=== PATIENT | female | born 1975 | race Caucasian/White ===

== ENCOUNTER 2024-12-10 14:21 | Emergency (ER) | payer MEDICAID, SELFPAY ==
[2024-12-10] VITALS (9 sets, daily range): BP systolic 134–170; BP diastolic 81–103; PULSE 59–74; RESP 16–19; TEMP 36.4–37; O2SAT 93–98; BMI 54.8
--- NOTE | 2024-12-10 14:32 | CT_ITS ---
PROCEDURE INFORMATION: Exam: CT Abdomen And Pelvis With Contrast Exam date and time: 12/10/2024 5:03 PM Age: 49 years old Clinical indication: Abdominal pain; Additional info: Diffuse abdominal pain TECHNIQUE: Imaging protocol: Computed tomography of the abdomen and pelvis with contrast. Radiation optimization: All CT scans at this facility use at least one of these dose optimization techniques: automated exposure control; mA and/or kV adjustment per patient size (includes targeted exams where dose is matched to clinical indication); or iterative reconstruction. Contrast material: ISOVUE; Contrast volume: 75 ml; Contrast route: IV; COMPARISON: CT ABDOMEN PELVIS W CON 12/10/2024 5:03 PM FINDINGS: Lungs: Mild basilar atelectasis. No basilar infiltrate or pleural effusion appreciated. Coronary arteries: Mild right-sided coronary artery calcification. No heart enlargement or pericardial fluid. Liver: Probable mild fatty infiltration of the liver. Hepatomegaly with the liver measuring 20 cm in length. No focal abnormality of the liver or intrahepatic ductal dilatation appreciated. Gallbladder and biliary ducts: The gallbladder is not visualized and presumed absent. No dilatation of the common duct appreciated. Pancreas: Mild decreased attenuation within the pancreatic head and uncinate process. Mild edema adjacent to the posterior body of the pancreas and pancreatic head region. No focal fluid collection appreciated. Spleen: Splenomegaly with the spleen measuring 17.6 cm in length. Calcified granulomata within the lower pole of the spleen. Adrenal glands: Normal. No mass. Kidneys and ureters: Normal. No hydronephrosis. Stomach and bowel: No distension of the stomach identified. No large or small bowel dilatation appreciated. No definite bowel wall abnormality appreciated. Appendix: The appendix is not visualized with certainty. No definite evidence of acute inflammation adjacent to the cecum. Intraperitoneal space: There is a 1.3 cm rim of fluid along the lateral aspect of the liver in the right upper quadrant. There is a mild degree of mesenteric inflammation centrally below the transverse segment of the duodenum with a few small lymph nodes present. There is a small amount of free fluid within the right pelvis. Vasculature: Mild atherosclerotic plaquing abdominal aorta with no aneurysm appreciated. Vena cava filter with the superior tip at the level of the right renal vein. The prongs extend through the wall of the inferior vena cava inferiorly. Lymph nodes: There are small lymph nodes in the gastrohepatic ligament. Urinary bladder: Unremarkable as visualized. Reproductive: Normal-sized anteverted uterus. Normal-appearing ovaries. Dominant 2 cm follicle left ovary. Bones/joints: Advanced degenerative disc disease L2-L3 with sclerotic vertebral body endplate changes. Soft tissues: Small linear approximate 3 x 1.5 cm area of increased attenuation within the anterolateral lower right abdominal wall which could be the site of an injection or possibly scar. IMPRESSION: 1. The above findings are most consistent with mild pancreatitis and possibly associated duodenitis. No focal fluid collection or dilatation of the pancreatic duct appreciated. 2. Previous cholecystectomy. No dilatation of the common duct. 3. Hepatosplenomegaly with probable mild fatty infiltration of the liver. 4. Small amount of fluid along the lateral right lobe of the liver and within the pelvis. 5. Other findings above. COMMENTS: For patients with an IVC filter, recommend assessment for a management plan for the patient's IVC filter. If there is no established management plan, recommend referral to an interventional clinician on a nonemergent basis for evaluation.
--- NOTE | 2024-12-10 14:32 | XR_ITS ---
PROCEDURE INFORMATION: Exam: XR Chest Exam date and time: 12/10/2024 5:04 PM Age: 49 years old Clinical indication: Shortness of breath; Additional info: Short of breath TECHNIQUE: Imaging protocol: Radiologic exam of the chest. Views: 1 view. COMPARISON: CT ABDOMEN PELVIS W CON 12/10/2024 5:03 PM FINDINGS: Lungs: No focal infiltrate or vascular congestion appreciated. Pleural spaces: Unremarkable. No pleural effusion. No pneumothorax. Heart/Mediastinum: Normal-sized cardiac silhouette. Bones/joints: Unremarkable. Soft tissues: Breast and soft tissue shadows partially obscure the lung bases. IMPRESSION: No acute findings.
--- NOTE | 2024-12-10 14:41 | HMH.EDGENADL ---
Discharge Plan Disposition Patient Disposition: Home, Self-Care Prescriptions Prescriptions: New ondansetron HCl 4 mg tablet 4 mg PO Q8H PRN (Reason: nausea and vomiting) 5 Days Qty: 20 0RF No Action furosemide [Lasix] 20 mg tablet 20 mg PO BID PRN (Reason: edema) Qty: 60 4RF alprazolam 0.5 mg tablet 0.25 mg PO BID PRN (Reason: anxiety) Qty: 14 0RF Ozempic 0.25 mg or 0.5 mg (2 mg/3 mL) pen injector 0.25 mg SQ WEEKLY Qty: 3 0RF Rx Instructions: for 4 weeks potassium chloride 10 mEq capsule, extended release 10 meq PO BID clonidine HCl 0.1 mg tablet 0.1 mg PO TID cetirizine 10 mg tablet 10 mg PO DAILY meloxicam 15 mg tablet 15 mg PO DAILY venlafaxine 150 mg capsule,extended release 24hr 150 mg PO DAILY omeprazole 40 mg capsule,delayed release(DR/EC) 40 mg PO DAILY acetaminophen 650 mg tablet extended release 650 mg PO Q4H PRN zinc sulfate 50 mg zinc (220 mg) tablet 50 mg PO DAILY ascorbic acid (vitamin C) [Vitamin C] 500 mg tablet 500 mg PO BID doxepin 100 mg capsule 100 mg PO HS selenium sulfide 1 % shampoo 1 applic topical 2XW Rx Instructions: massage into affected area; leave on for 10 mins ; rinse off thoroughly insulin lispro 100 unit/mL insulin pen 1 sliding scale dose SQ QID lactulose 10 gram/15 mL solution 30 g PO DAILY insulin glargine [Lantus Solostar U-100 Insulin] 100 unit/mL (3 mL) insulin pen 20 unit SQ DAILY Certavite-Antioxidant 18-400 mg-mcg tablet 1 tab PO DAILY sofosbuvir-velpatasvir 400-100 mg tablet 1 tab PO DAILY gabapentin 800 mg tablet 800 mg PO TID Qty: 90 0RF (DME) Blood Glucose Test Strip See Rx Instructions .ROUTE .MEDSUPPLY Qty: 50 7RF Rx Instructions: As directed (DME) 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 meter [Blood Glucose Monitoring] Kit See Rx Instructions .ROUTE .MEDSUPPLY Qty: 1 0RF Rx Instructions: As directed (DME) Dexcom G7 Sensor Device See Rx Instructions .Route Qty: 3 6RF Rx Instructions: As directed (DME) Dexcom G7 [employer]ist Misc See Rx Instructions .Route Qty: 1 0RF Rx Instructions: As directed (DME) lancets Misc See Rx Instructions .ROUTE .MEDSUPPLY Qty: 200 0RF Rx Instructions: To be used 3 times daily as directed (DME) pen needle, diabetic [Comfort EZ Pen Farrell] 31 gauge x 1/4 needle See Rx Instructions .Route Qty: 100 7RF Rx Instructions: As directed Referrals Follow up/Referrals: Magen Eqsuivel II, MD [Staff Physician, Gastroenterology] - See instructions Ren Clayton DO [Staff Physician, Family Practice] - See instructions Provider,Jr, [Primary Care Provider, Medical] - See instructions Activity Restrictions/Add. Instructions Additional Instructions/Restrictions: Increase fluids and rest. Take nausea meds as directed. If any worsening symptoms please return to the ED. Clinical Impressions Clinical Impression: Pancreatitis Instructions Patient Instructions: Acute Pancreatitis Print Language Print Language: Palauan Discharge ED Provider: James Benson General Adult HPI General Chief complaint: Nausea/Vomiting/Diarrhea Stated complaint: N/V/D Time Seen by Provider: 12/10/24 14:28 Mode of Arrival: EMS Source of Information: Patient Description of Symptoms (Recalled from ER Triage Doc. by RN): Patient states she has had nausea, vomiting, diarrhea x 5 days, states she saw her PCP 2 days ago and was told to come to the ER if she did not improve. History of Present Illness HPI narrative: 49-year-old female presents via EMS for nausea, vomiting and diarrhea for 5 days. She saw her PCP a couple days ago and was told if she did not improve come to the ER. She has been dry heaving. She has not been able to tolerate p.o. for days. She is having hot flashes but no fevers or chills. She is having diffuse abdominal pain. Her blood sugar has been 250-350. She is a diabetic and her sugar this morning was 150. Related Data Home Medications ?Medication ?Instructions ?Recorded ?Confirmed acetaminophen 650 mg 650 mg PO Q4H PRN 11/18/24 12/07/24 tablet,extended release ascorbic acid (vitamin C) 500 mg 500 mg PO BID 11/18/24 12/07/24 tablet (Vitamin C) cetirizine 10 mg tablet 10 mg PO DAILY 11/18/24 12/07/24 clonidine HCl 0.1 mg tablet 0.1 mg PO TID 11/18/24 12/07/24 doxepin 100 mg capsule 100 mg PO HS 11/18/24 12/07/24 insulin glargine 100 unit/mL (3 20 unit SQ DAILY 11/18/24 12/07/24 mL) subcutaneous pen (Lantus Solostar U-100 Insulin) insulin lispro 100 unit/mL 1 sliding scale dose SQ QID 11/18/24 12/07/24 subcutaneous pen lactulose 10 gram/15 mL oral 30 g PO DAILY 11/18/24 11/18/24 solution meloxicam 15 mg tablet 15 mg PO DAILY 11/18/24 12/07/24 multivitamin-ferrous 1 tab PO DAILY 11/18/24 12/07/24 fumarate-folic acid 18 mg-400 mcg tablet (Certavite-Antioxidant) omeprazole 40 mg capsule,delayed 40 mg PO DAILY 11/18/24 11/18/24 release potassium chloride 10 mEq 10 meq PO BID 11/18/24 12/07/24 capsule,extended release selenium sulfide 1 % shampoo 1 applic topical 2XW 11/18/24 12/07/24 sofosbuvir 400 mg-velpatasvir 100 1 tab PO DAILY 11/18/24 12/07/24 mg tablet venlafaxine 150 mg 150 mg PO DAILY 11/18/24 12/07/24 capsule,extended release 24 hr zinc sulfate 50 mg zinc (220 mg) 50 mg PO DAILY 11/18/24 12/07/24 tablet Previous Rx's ?Medication ?Instructions ?Recorded alprazolam 0.5 mg tablet 0.25 mg (1/2 x 0.5 mg) PO BID PRN 11/18/24 anxiety #14 tabs furosemide 20 mg tablet (Lasix) 20 mg PO BID PRN edema #60 tabs 11/18/24 semaglutide 0.25 mg or 0.5 mg (2 0.25 mg (0.368 mL) SQ WEEKLY #3 mL 11/18/24 mg/3 mL) subcutaneous pen injector (Ozempic) blood sugar diagnostic (Blood #50 ea 12/07/24 Glucose Test strips) 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 meter (Blood Glucose #1 ea 12/07/24 Monitoring kit) 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 sensor (Dexcom G7 #3 ea 12/07/24 Sensor device) 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,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,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 #1 ea 12/07/24 (Dexcom G7 [employer]ist) lancets #200 ea 12/07/24 pen needle, diabetic 31 gauge x #100 ea 12/07/2403/27 (Comfort EZ Pen Farrell) gabapentin 800 mg tablet 800 mg PO TID #90 tabs 12/10/24 ondansetron HCl 4 mg tablet 4 mg PO Q8H PRN nausea and 12/10/24 vomiting 5 days #20 tabs Allergies Allergy/AdvReac Type Severity Reaction Status Date / Time No Known Allergies Allergy Verified 12/07/24 13:18 [facility] Disclaimer: The information contained in this section may have been updated after the patient was seen, as this information can be updated by other users. Medical History Umbilical hernia Adjustment disorder with mixed anxiety and depressed mood Atelectasis Bipolar disorder, unspecified Calculus of gallbladder with acute cholecystitis without obstruction Dependence on wheelchair Edema, unspecified Fatty (change of) liver, not elsewhere classified Gastro-esophageal reflux disease without esophagitis Acute low back pain due to spinal disorder Morbid (severe) obesity due to excess calories Other stimulant dependence, uncomplicated Generalized polyneuropathy Chronic kidney disease due to diabetes mellitus Unspecified open wound, left ankle, subsequent encounter Presence of IVC filter Hypertension DDD (degenerative disc disease), thoracic DDD (degenerative disc disease), lumbar DDD (degenerative disc disease), cervical Surgical History H/O hernia repair H/O toe surgery History of colonoscopy Jay teeth extracted Hx of cholecystectomy History of ankle surgery History of back surgery Social History Smoking Status: Former smoker tobacco type: cigarettes packs per day: 2 and e-cigarettes smoking status start date: 1990 how long ago did patient quit smokin alcohol intake: never substance use type: former substance user and methamphetamine current occupational status: disabled Travel in the last 8 weeks?: None Have you lived/traveled outside [place] in past 30 days?: No Contact w/someone who lives/traveled outside US past 30 days?: No Exposure to someone with infectious disease in past 14 days?: No Do you have a fever (greater than 100.4 F or 38 C)?: No Have you tested positive for COVID-19?: No Exposed to someone with COVID-19 in past 14 days?: No Do you have a sore throat?: No Do you have a cough?: No Do you have any weakness?: No Do you have any diarrhea?: Yes Are you experiencing any unusual bleeding?: No Do you have any muscle aches/pain?: No Do you have any abdominal pain?: No Are you experiencing loss of taste or smell?: No Other Medical History Have you received the Pneumonia Vaccine: Yes ([id number]) ROS Obtained: Yes Systems reviewed as appropriate & no additional complaints except as documented Constitutional Constitutional: Reports as per HPI Physical Exam General General appearance: alert and in distress (Nausea) Head Head exam: normocephalic Eye Eye exam: Present PERRL and EOMI ENT ENT exam: Present normal oropharynx and mucous membranes moist Neck Neck exam: Present full ROM and trachea midline Respiratory Respiratory exam: Present normal lung sounds bilaterally Cardiovascular Cardiovascular exam: Present normal rhythm, normal heart sounds, +S1 and +S2 Abdominal Exam Abdominal exam: Present soft and normal bowel sounds Abdominal tenderness: Present diffuse Extremities Exam Extremities exam: Present full ROM and normal capillary refill Neurological Exam Neurological exam: Present alert and oriented X3 Skin Skin exam: Present warm, dry and intact Medical Decision Making Medical Records Screening: Per USPSTF and CDC recommendations, given the prevalence of disease in our region, it is our hospital?s policy to screen for HIV and viral Hepatitis for all patients aged 18 and over and those with ongoing risk factors. Adalid Inquiry Pt receiving controlled substance: No Adalid was queried for this patient: No Vital Signs: 12/10/24 14:22 12/10/24 14:25 12/10/24 16:17 Temperature 97.6 F Temperature Source Oral Pulse Rate 74 65 Pulse Rate [Right Brachial] 69 Respiratory Rate 18 19 Blood Pressure 141/81 H Blood Pressure [Right Arm] 140/85 Blood Pressure Mean Blood Pressure Mean [Right Arm] 103 Blood Pressure Source [Right Arm] Automatic Cuff Blood Pressure Position [Right Arm] Sitting 02 Sat by Pulse Oximetry 95 95 94 L Oxygen Delivery Method Room Air Room Air 12/10/24 16:31 12/10/24 17:19 12/10/24 18:00 Temperature Temperature Source Pulse Rate 59 L 65 Pulse Rate [Right Brachial] Respiratory Rate 16 Blood Pressure 164/88 H 148/96 H 134/96 H Blood Pressure [Right Arm] Blood Pressure Mean 107 107 Blood Pressure Mean [Right Arm] Blood Pressure Source [Right Arm] Blood Pressure Position [Right Arm] 02 Sat by Pulse Oximetry 93 L 98 Oxygen Delivery Method Room Air 12/10/24 18:30 12/10/24 19:23 12/10/24 19:52 Temperature 98.6 F Temperature Source Pulse Rate 68 71 66 Pulse Rate [Right Brachial] Respiratory Rate 17 16 16 Blood Pressure 140/89 170/103 H 149/99 H Blood Pressure [Right Arm] Blood Pressure Mean 98 Blood Pressure Mean [Right Arm] Blood Pressure Source [Right Arm] Blood Pressure Position [Right Arm] 02 Sat by Pulse Oximetry 98 98 Oxygen Delivery Method Room Air Room Air Lab Data Lab Results 12/10/24 14:40: WBC 7.6, RBC 3.92 L, Hgb 12.2, Hct 36.4 L, MCV 92.9, MCH 31.1, MCHC 33.5, RDW 14.1, Plt Count 128 L, MPV 10.4, Neut % (Auto) 66.3, Lymph % (Auto) 21.8, Ponce % (Auto) 9.0, Eos % (Auto) 1.6, Baso % (Auto) 0.8, Neut # (Auto) 5.1, Lymph # (Auto) 1.7, Ponce # (Auto) 0.7, Eos # (Auto) 0.1, Baso # (Auto) 0.1, Sodium 137, Potassium 4.1, Chloride 98, Carbon Dioxide 29, Anion Gap 14.1, BUN 18 H, Creatinine 0.90, Estimated Creat Clear 72, Estimated GFR 67, Est GFR ( Amer) 81, Glucose 172 H, Calcium 9.1, Magnesium 1.7, Total Bilirubin 0.6, AST 40 H, ALT 27, Alkaline Phosphatase 148 H, Troponin I 0.01, Total Protein 9.3 H, Albumin 4.1, Globulin 5.2 H, Albumin/Globulin Ratio 0.8 L, Lipase 193, Serum HCG, Qual Negative, Acetone Level None detected 12/10/24 14:45: SARS-CoV-2 (PCR) Not detected, Influenza A Untype (PCR) Not detected, Influenza Type B (PCR) Not detected 12/10/24 14:46: VBG pH 7.39, VBG pCO2 49.6, VBG pO2 66.7 H, VBG HCO3 29.4, VBG Total CO2 30.9 H, VBG O2 Saturation 93.0 H, VBG Base Excess 4.5 H, VBG Lactic Acid 1.6 12/10/24 18:17: Troponin I < 0.01 12/10/24 14:40 12/10/24 14:40 Orders (Tests/Meds): ED MEDICATIONS Discontinued Medications Generic Name Dose Route Start Last Admin Trade Name Freq PRN Reason Stop Dose Admin Acetaminophen 1,000 mg 12/10/24 14:32 12/10/24 14:49 Acetaminophen 1,000mg/100ml Vial IV 12/10/24 14:33 1,000 mg ONCE ONE Administration Famotidine 20 mg 12/10/24 14:32 12/10/24 14:49 Famotidine 20mg/2ml Vial IV 12/10/24 14:33 20 mg ONCE ONE Administration Sodium Chloride 1,000 mls @ 999 mls/hr 12/10/24 14:32 12/10/24 16:27 Sod Chlor 0.9% 1000ml Bag IV 12/10/24 15:32 Infused .Q1H1M ONE Infusion Iopamidol 85 ml 12/10/24 17:03 12/10/24 17:08 Iopamidol-370 (76%);100ml Bottle IV 12/10/24 17:04 85 ml ONCE ONE Administration Ketorolac Tromethamine 30 mg 12/10/24 14:32 12/10/24 14:49 Ketorolac 30mg/Ml Vial IV 12/10/24 14:33 30 mg ONCE ONE Administration Ondansetron HCl 4 mg 12/10/24 14:32 12/10/24 14:49 Ondansetron 4mg/2ml Vial IV 12/10/24 14:33 4 mg ONCE ONE Administration Promethazine HCl 12.5 mg 12/10/24 17:16 12/10/24 17:56 Promethazine Hcl 25mg/Ml 1ml Vial IV 12/10/24 17:17 Not Given ONCE ONE Sodium Chloride 8 ml 12/10/24 14:32 Sodium Chloride 0.9% 10ml Vial IV 01/09/25 14:31 NEEDED PRN dilute pepcid Sodium Chloride 10 ml 12/10/24 17:03 12/10/24 17:08 Sodium Chloride 0.9% 10ml Syr (Rad Only) IV 12/10/24 17:04 10 ml ONCE ONE Administration Sodium Chloride 25 ml 12/10/24 17:16 12/10/24 17:55 Sodium Chloride 0.9% 25ml Bag IV 12/10/24 17:17 Not Given ONCE ONE ORDERS Category Date Time Status CT abdomen pelvis w con Stat Cat Scan 12/10/24 14:32 Completed Chest XR -- portable [XR chest portable] Stat Exams 12/10/24 14:32 Completed Acetone, Serum (Rapid) Stat Lab 12/10/24 14:40 Completed CBC [Complete Blood Count Auto Diff] Stat Lab 12/10/24 14:40 Completed Comprehensive Metabolic Panel Stat Lab 12/10/24 14:40 Completed HCG Qualitative, Serum Stat Lab 12/10/24 14:40 Completed Lipase Stat Lab 12/10/24 14:40 Completed Magnesium Stat Lab 12/10/24 14:40 Completed Rapid PCR Covid and Flu A/B Stat Lab 12/10/24 14:45 Completed Trop I [Troponin I] Stat Lab 12/10/24 14:40 Completed Troponin I Q3H Lab 12/10/24 18:17 Completed Venous Blood Gas Stat RT 12/10/24 14:46 Completed HEART Score History (anamnesis): Slightly suspicious ECG: Normal Age: 45-65 years Risk factors: No known risk factors Troponin: </= normal limit HEART Score: 1 Medical Decision Narrative: patient is a 49-year-old presenting to the emergency department for evaluation of nausea, dry heaves and diarrhea. Patient is hemodynamically stable and nontoxic-appearing upon arrival, afebrile. Differential diagnosis includes gastritis, viral illness, pancreatitis, among others. Workup will be conducted with hematologic labs, specific imaging. Initial inventions include crystalloid bolus, analgesics. Initial workup reviewed by me hematologic labs are remarkable for normal troponin, other lab work was nonactionable. CT showed mild pancreatitis. Please see rad report for the rest of the read. Discussed with patient that she had mild pancreatitis. She is tolerating p.o. She feels much improved after medications here in the ED. Patient is safe for discharge home. I discussed that she needs to follow-up with her PCP. This is Dr. Clayton. Discussed case with Dr. Leo Critical Care Critical Care Time Critical Care Time: No
[2024-12-10] MEDS: 0.9 % SODIUM CHLORIDE 1000ML 1,000 ML 999 ML IV (14:48)
[2024-12-10] MEDS: FAMOTIDINE 20MG/2ML VIAL 20 MG IV (14:49)
[2024-12-10] MEDS: ACETAMINOPHEN 1,000MG/100ML VIAL 1000 MG IV (14:49)
[2024-12-10] MEDS: KETOROLAC 30MG/ML VIAL 30 MG IV (14:49)
[2024-12-10] MEDS: ONDANSETRON 4MG/2ML VIAL 4 MG IV (14:49)
[2024-12-10 14:52] LABS: Hematocrit 36.4 % (37.0-47.0); Hemoglobin 12.2 g/dL (12.2-16.2); Immature Granulocytes % 0.5 %; Mean Corpuscular HGB Conc 33.5 g/dL (31.8-35.4); Mean Corpuscular Hemoglobin 31.1 pg (27.0-31.2); Mean Corpuscular Volume 92.9 fl (81-99); Nucleated Red Blood Cells % 0 %; Platelet Count 128 K/mm3 (142-424); Red Blood Count 3.92 M/mm3 (4.20-5.40); Red Cell Distribution Width-SD 48.0 fL; White Blood Count 7.6 K/mm3 (4.8-10.8)
[2024-12-10 14:52] LABS: Coronavirus 19, PCR Not Detected (NotDetected); Influenza A, PCR Not Detected (NotDetected); Influenza B, PCR Not Detected (NotDetected)
[2024-12-10 14:53] LABS: Lactate Venous 1.6 mmol/L (0.4-2.0); VBG HCO3 29.4 mmol/L (23-30); VBG PCO2 49.6 mmol/L (35-51); VBG PH 7.39 mmol/L (7.31-7.41); VBG PO2 66.7 mmol/L (28-40)
[2024-12-10 14:57] LABS: Albumin Level 4.1 g/dl (3.5-5.0); Chloride 98 mmol/L (98-107)
[2024-12-10 14:58] LABS: Potassium 4.1 mmoL/L (3.5-5.1); Sodium 137 mmol/L (136-145)
[2024-12-10 15:00] LABS: Alanine Aminotransferase 27 U/L (12-78); Anion Gap 14.1 mEq/L (5-15); Aspartate Amino Transferase 40 U/L (14-36); Blood Urea Nitrogen 18 mg/dl (7-17); Carbon Dioxide 29 mmol/L (22.0-30.0); Creatinine Clearance Estimated 72 mL/min (50-200); Creatinine,Serum 0.90 mg/dl (0.52-1.04); Estimated Glomerular Filt Rate 67 ml/min (>60); GFR (African American) 81 ML/MIN (>60)
[2024-12-10 15:01] LABS: Albumin/Globulin Ratio 0.8 (1.1-1.8); Alkaline Phosphatase 148 U/L (38-126); Bilirubin,Total 0.6 mg/dl (0.2-1.3); Calcium 9.1 mg/dl (8.4-10.2); Globulin 5.2 g/dL (1.3-3.2); Glucose 172 mg/dl (74-100); Lipase 193 U/L (23-300); Magnesium 1.7 mg/dl (1.6-2.3); Total Protein,Serum 9.3 g/dl (6.3-8.2)
[2024-12-10 15:15] LABS: Acetone, Serum (Rapid) None Detected (None Detect)
[2024-12-10 15:17] LABS: Troponin I 0.01 ng/ml (0.00-0.034)
--- NOTE | 2024-12-10 16:10 | ECG_ITS ---
APPROVED REPORT Exam: Resting ECG HR:62 bpm ECG Measurements Heart Rate 62 AXES HI 164 P 19 QRSd 95 QRS 42 QT 405 T 45 QTc 411 Conclusion SINUS RHYTHM NORMAL ECG UNCONFIRMED REPORT Electronically signed by : Curt Benson, 12/10/2024 16:37:52
--- NOTE | 2024-12-10 16:18 | HMH.ITSTN ---
called ER multiple times requesting preg test.
[2024-12-10 16:44] LABS: HCG Qualitative, Serum Negative (Negative)
[2024-12-10] MEDS: SODIUM CHLORIDE 0.9% 10ML SYR (RAD ONLY) 10 ML IV (17:08)
[2024-12-10] MEDS: IOPAMIDOL-370 (76%);100ML BOTTLE 85 ML IV (17:08)
[2024-12-10 19:16] LABS: Troponin I < 0.01 ng/ml (0.00-0.034)
== END 2024-12-10 20:03 | disposition home or self-care (01) ==
PROVIDERS: Nurse Practitioner; Emergency Provider Student in an Organized Health Care Education/Training Program
DX: R10.84 Generalized abdominal pain (principal); R11.2 Nausea with vomiting, unspecified; K85.90 Acute pancreatitis without necrosis or infection, unspecified; I10 Essential (primary) hypertension; Z87.891 Personal history of nicotine dependence
CPT/HCPCS: 71045; 74177; 80053; 82009; 82803; 83690; 83735; 84484; 84703; 85025; 87636; 93005; 96361; 96374; 96375; 99285; J0131; J1885; J2405; J7030; Q9967

== ENCOUNTER 2025-02-01 23:35 | Emergency (ER) | payer MEDICAID, SELFPAY ==
--- OUTSIDE RECORDS SUMMARY | 2024-03-30 08:15 | XMS_ITS ---
Author Organization [facility] Augie ramos Billing Info Address [address] [place] [address] Care Team Providers Care Ripening Room Operator Name Role Phone Yung Colón Primary Care Provider Yimi JOHNSONANTROSINA Unavailable [phone] Allergies No Known Allergies REASON FOR VISIT Gallstones/CT Scan done at [facility] and they will push images, Controlling HBP-Most Recent Dystolic less than 80 mm Hg, Controlling HBP_Systolic less than 130 mm Hg, GSBRYnmlPE Medications Medication SIG (Take, Route, Frequency, Duration) Notes Start Date End Date Status Venlafaxine HCl ER 75 MG Oral for 30 Days Active Furosemide 20 MG Oral for 30 Days Active Potassium Chloride ER 10 MEQ Oral for 30 Days Active Meloxicam 15 MG Oral for 30 Days Active Benzonatate 100 MG TAKE 1 CAPSULE BY [facility] EVERY 8 HOURS NEEDED FOR COUGH Oral for 7 Days Active Cyclobenzaprine HCl 5 MG Oral for 30 Days Active Gabapentin 800 MG Oral for 30 Days Active Clonidine HCl 0.1 MG Oral for 30 Days Active Social History Tobacco Use: Social History Observation Description Date Details (start date - stop date) Former Smoker NA - NA Tobacco Status: Question Answer Notes Patient is a former smoker Vital Signs Height 66 in 03/30/2024 Weight 270 lbs 03/30/2024 BMI 43.57 kg/m2 03/30/2024 Blood pressure systolic 118 mm Hg 03/30/19 25 Blood pressure diastolic 74 mm Hg 025 Heart Rate 78 /min 03/30/2024 Oximetry 97 03/30/2024 Encounters Encounter Location Date Provider Diagnosis [id number] [address] [address] 03/30/2024 ROSINA SHARMA Dietary counseling a nd surveillance Z71.3 ; Symptomatic cholelithiasis K80.20 ; Severe obesity (BMI >= 40) E66.01 ; Umbilical hernia K42.9 and Abdominal wall mass R19.00 Assessments Encounter Date Diagnosis (ICD Code) Assessment Notes Treatment Notes Treatment Clinical Notes Section Notes 03/30/2024 Dietary counseling and surveillance (ICD-10 - Z71.3) Encouraged balanced nutrition and regular exercise Ms. Haro is a 48-year-old who presents as a referral for symptomatic cholelithiasis. The etiology of gallstones and management was discussed with the patient. I recommended proceeding to the operating room for a robotic assisted laparoscopic cholecystectomy. I also discussed with her that while I am there, I can not repair the umbilical hernia with stitches. Because I am not using mesh, she is at an increased risk of recurrence and a lower risk of infection. I will also be able to excise the left abdominal wall mass. The procedure and its indications were discussed with the patient. Risks, benefits, and alternatives were discussed. Risks include bleeding, infection, damage to surrounding structures, unexpected findings, conversion to open, bile leak, retained bile duct stones, damage to the common bile duct, wound complications, hernia recurrence, mass recurrence, and need for subsequent procedures. Patient confirms understanding and agrees to proceed with surgery. Due to her diabetes, she is at increased risk of wound complications and infection, which I discussed with the patient. She states that she will do her best to manage her blood sugars at this time. I will also schedule her for a four week postoperative follow up. She confirms understanding and agrees with this plan. This note has been faxed to the referring provider for continuity of care. 03/30/2024 Symptomatic cholelithiasis (ICD-10 - K80.20) Ms. Haro is a 48-year-old who presents as a referral for symptomatic cholelithiasis. The etiology of gallstones and management was discussed with the patient. I recommended proceeding to the operating room for a robotic assisted laparoscopic cholecystectomy. I also discussed with her that while I am there, I can not repair the umbilical hernia with stitches. Because I am not using mesh, she is at an increased risk of recurrence and a lower risk of infection. I will also be able to excise the left abdominal wall mass. The procedure and its indications were discussed with the patient. Risks, benefits, and alternatives were discussed. Risks include bleeding, infection, damage to surrounding structures, unexpected findings, conversion to open, bile leak, retained bile duct stones, damage to the common bile duct, wound complications, hernia recurrence, mass recurrence, and need for subsequent procedures. Patient confirms understanding and agrees to proceed with surgery. Due to her diabetes, she is at increased risk of wound complications and infection, which I discussed with the patient. She states that she will do her best to manage her blood sugars at this time. I will also schedule her for a four week postoperative follow up. She confirms understanding and agrees with this plan. This note has been faxed to the referring provider for continuity of care. 03/30/2024 Severe obesity (BMI >= 40) (ICD-10 - E66.01) Encouraged balanced nutrition and regular exercise Ms. Haro is a 48-year-old who presents as a referral for symptomatic cholelithiasis. The etiology of gallstones and management was discussed with the patient. I recommended proceeding to the operating room for a robotic assisted laparoscopic cholecystectomy. I also discussed with her that while I am there, I can not repair the umbilical hernia with stitches. Because I am not using mesh, she is at an increased risk of recurrence and a lower risk of infection. I will also be able to excise the left abdominal wall mass. The procedure and its indications were discussed with the patient. Risks, benefits, and alternatives were discussed. Risks include bleeding, infection, damage to surrounding structures, unexpected findings, conversion to open, bile leak, retained bile duct stones, damage to the common bile duct, wound complications, hernia recurrence, mass recurrence, and need for subsequent procedures. Patient confirms understanding and agrees to proceed with surgery. Due to her diabetes, she is at increased risk of wound complications and infection, which I discussed with the patient. She states that she will do her best to manage her blood sugars at this time. I will also schedule her for a four week postoperative follow up. She confirms understanding and agrees with this plan. This note has been faxed to the referring provider for continuity of care. 03/30/2024 Umbilical hernia (ICD-10 - K42.9) Ms. Haro is a 48-year-old who presents as a referral for symptomatic cholelithiasis. The etiology of gallstones and management was discussed with the patient. I recommended proceeding to the operating room for a robotic assisted laparoscopic cholecystectomy. I also discussed with her that while I am there, I can not repair the umbilical hernia with stitches. Because I am not using mesh, she is at an increased risk of recurrence and a lower risk of infection. I will also be able to excise the left abdominal wall mass. The procedure and its indications were discussed with the patient. Risks, benefits, and alternatives were discussed. Risks include bleeding, infection, damage to surrounding structures, unexpected findings, conversion to open, bile leak, retained bile duct stones, damage to the common bile duct, wound complications, hernia recurrence, mass recurrence, and need for subsequent procedures. Patient confirms understanding and agrees to proceed with surgery. Due to her diabetes, she is at increased risk of wound complications and infection, which I discussed with the patient. She states that she will do her best to manage her blood sugars at this time. I will also schedule her for a four week postoperative follow up. She confirms understanding and agrees with this plan. This note has been faxed to the referring provider for continuity of care. 03/30/2024 Abdominal wall mass (ICD-10 - R19.00) Ms. Haro is a 48-year-old who presents as a referral for symptomatic cholelithiasis. The etiology of gallstones and management was discussed with the patient. I recommended proceeding to the operating room for a robotic assisted laparoscopic cholecystectomy. I also discussed with her that while I am there, I can not repair the umbilical hernia with stitches. Because I am not using mesh, she is at an increased risk of recurrence and a lower risk of infection. I will also be able to excise the left abdominal wall mass. The procedure and its indications were discussed with the patient. Risks, benefits, and alternatives were discussed. Risks include bleeding, infection, damage to surrounding structures, unexpected findings, conversion to open, bile leak, retained bile duct stones, damage to the common bile duct, wound complications, hernia recurrence, mass recurrence, and need for subsequent procedures. Patient confirms understanding and agrees to proceed with surgery. Due to her diabetes, she is at increased risk of wound complications and infection, which I discussed with the patient. She states that she will do her best to manage her blood sugars at this time. I will also schedule her for a four week postoperative follow up. She confirms understanding and agrees with this plan. This note has been faxed to the referring provider for continuity of care. Plan Of Treatment Treatment Notes Assessment Notes Dietary counseling and surveillance Enco uraged balanced nutrition and regular exercise Severe obesity (BMI >= 40) Encouraged ba lanced nutrition and regular exercise Next Appt Details Follow Up: surgery and 4 wee k postop followup, Reason: symptomatic cholelithiasis Progress Notes * Francisco HAROOB:1975 (48 yo F)Acc No.[id number]:03/30/2024 PROGRESS NOTE Patient: Eryn SMALL Provider: Amandeep SHARMA MD :1975 A ge:48 Y S ex:Female Date:03/30/2024 C HN#:[id number] Address:[address] [place], [place] [id number] Pcp:Yung Colón Subjective: * Chief Complaints: * G allstones/CT Scan done at [facility] and they will push imagesControlling HBP-Most Recent Dystolic less than 80 mm HgControlling HBP_Systolic less than 130 mm HgGSBRYnmlPE * HPI: D epression Screening: PHQ-2 (2015 Edition) L ittle interest or pleasure in doing things? N ot at all, F eeling down, depressed, or hopeless? N ot at all, T otal Score 0 . F irst Point of Contact Screening: Do any of the following apply to you? O FFICE USE (If universal masking is not in place, provide patients age 2 years and older with a facemask to wear over their mouth and nose while in the practice.): P atient answered no to all questions OR only answered yes to question 1, N o further action needed 0 03/30/2024. P atient History: Ms. Haro is a 48-year-old who presents as a referral from Dr. Berger for gallstones. Patient states that she has been having recurring right upper quadrant abdominal pain after meals with associated nausea. She reports that this has been going on for years. She also reports being diagnosed with peptic ulcer disease a few years ago and is on antacid medication.? She denies diarrhea and reports constipation. Due to her abdominal complaints, she had a CT scan, for which I have reviewed the report and images, and interpreted as a distended gallbladder with gallstones, a 2 cm fat containing umbilical hernia, and a left sided 2 cm abdominal wall subcutaneous mass. Patient states that she has felt a hard occasionally tender nodule at the left abdominal wall that she would like to have removed. She reports occasional tenderness and aching pain at her umbilicus. She states that she quit smoking 10 years ago. She reports having 2 abdominal wall infections that were drained and denies any other abdominal surgeries. She denies having yellowing of the whites of her eyes. She does report a history of having an IVC filter placed for a clotting disorder. She denies being on blood thinners. I have personally reviewed the referral note. * ROS: P ertinent positive findings are listed immediately above, and in the HPI. All other systems reviewed, and negative . * Medical History: * Surgical History: b ack surgery * Hospitalization/Major Diagno stic Procedure: s ee sx hx * Family History: M other: alive, diagnosed with Breast CA, Diabetes, HTN, Heart Attack. F ather: .? father-bone cancer. * Social History: A lcohol Use P atient d oes not use alcohol. T obacco Status P atient is a former smoker. * Medications: T akingBenzonatate 100 MG Capsule TAKE 1 CAPSULE BY MOUTH EVERY 8 HOURS NEEDED FOR COUGH Oral Clonidine HCl 0.1 MG Tablet Oral Cyclobenzaprine HCl 5 MG Tablet Oral Furosemide 20 MG Tablet Oral Gabapentin 800 MG Tablet Oral Meloxicam 15 MG Tablet Oral Potassium Chloride ER 10 MEQ Tablet Extended Release Oral Venlafaxine HCl ER 75 MG Capsule Extended Release 24 Hour Oral Medication List reviewed and reconciled with the patientTaking Benzonatate 100 MG Capsule TAKE 1 CAPSULE BY MOUTH EVERY 8 HOURS NEEDED FOR COUGH Oral Taking Clonidine HCl 0.1 MG Tablet Oral Taking Cyclobenzaprine HCl 5 MG Tablet Oral Taking Furosemide 20 MG Tablet Oral Taking Gabapentin 800 MG Tablet Oral Taking Meloxicam 15 MG Tablet Oral Taking Potassium Chloride ER 10 MEQ Tablet Extended Release Oral Taking Venlafaxine HCl ER 75 MG Capsule Extended Release 24 Hour Oral Medication List reviewed and reconciled with the patient * Allergies: N .K.A.no[Allergies Verified] Objective: * Vitals: H t: 66 in, Ht-cm: 167.64 cm, Wt: 270 lbs, Wt-k.47 kg, BMI:43.57, Body Surface Area: 2.39, BP:118/74, HR:78, Oxygen sat %:97. * Examination: G ENERAL SURGERY: Constitutional: n o apparent distress, alert and oriented to person, place and time, well hydrated. Head: n ormocephalic, no scalp or face lesions. Neck: s upple, no lymphadenopathy, trachea midline. Eyes: n o scleral icterus, PERRLA. Respiratory: n on-labored respirations on room air, no wheezing or rhonchi. Cardiovascular: r egular rate and rhythm, bilateral palpable radial pulses. Gastrointestinal (Abdomen): a bdomen soft, non-tender, non-distended, Nonreducible 2 cm umbilical hernia, palpable, firm, mobile subcutaneous left abdominal wall 3 cm mass. Lymphatic: n o axillary, supraclavicular, or cervical node enlargement. Musculoskeletal: 5 /5 strength in all extremities, no upper extremity defects. Neurologic: n o focal abnormalities, intact sensation and mentation. Assessment: * Assessment: 1. S ymptomatic cholelithiasis - K80.20 (Primary) 2 . D ietary counseling and surveillance - Z71.3 3 . S evere obesity (BMI >= 40) - E66.01 ?4. U mbilical hernia - K42.9 5 . A bdominal wall mass - R19.00 ? Ms. Haro is a 48-year-old who presents as a referral for symptomatic cholelithiasis. The etiology of gallstones and management was discussed with the patient. I recommended proceeding to the operating room for a robotic assisted laparoscopic cholecystectomy. I also discussed with her that while I am there, I can not repair the umbilical hernia with stitches. Because I am not using mesh, she is at an increased risk of recurrence and a lower risk of infection. I will also be able to excise the left abdominal wall mass. The procedure and its indications were discussed with the patient. Risks, benefits, and alternatives were discussed. Risks include bleeding, infection, damage to surrounding structures, unexpected findings, conversion to open, bile leak, retained bile duct stones, damage to the common bile duct, wound complications, hernia recurrence, mass recurrence, and need for subsequent procedures. Patient confirms understanding and agrees to proceed with surgery. Due to her diabetes, she is at increased risk of wound complications and infection, which I discussed with the patient. She states that she will do her best to manage her blood sugars at this time. I will also schedule her for a four week postoperative follow up. She confirms understanding and agrees with this plan. T his note has been faxed to the referring provider for continuity of care. Plan: * Treatment: 2. S evere obesity (BMI >= 40) Notes:Encouraged balanced nutrition and regular exercise * Procedure Codes: 3 078F DIAST BP <80 MM [id number] SYST BP LT 130 MM HG * Follow Up: s urgery and 4 week postop followup (Reason: symptomatic cholelithiasis) * Care Plan Details* * RACT ASSOCIATE Sign off status: Completed true * Provider: Amandeep SHARMA MD Date: 0 03/30/2024 Generated for Isidra thomas/Corine/eTransmitting on: 1 04/03/2024 10:43 PM CONTRACT ASSOCIATE History and Physical Notes * HPI (History of Present Illness) Category Sub-Category Detail Notes Category Not es Depression Screening PHQ-2 (2015 Edition) Little interest or pleasure in doing things?: Not at all Feeling down, depressed, or hopeless?: N ot at all Total Score: 0 Patient History Ms. Haro is a 48-year-old who presents as a referral from Dr. Berger for gallstones. Patient states that she has been having recurring right upper quadrant abdominal pain after meals with associated nausea. She reports that this has been going on for years. She also reports being diagnosed with peptic ulcer disease a few years ago and is on antacid medication. She denies diarrhea and reports constipation. Due to her abdominal complaints, she had a CT scan, for which I have reviewed the report and images, and interpreted as a distended gallbladder with gallstones, a 2 cm fat containing umbilical hernia, and a left sided 2 cm abdominal wall subcutaneous mass. Patient states that she has felt a hard occasionally tender nodule at the left abdominal wall that she would like to have removed. She reports occasional tenderness and aching pain at her umbilicus. She states that she quit smoking 10 years ago. She reports having 2 abdominal wall infections that were drained and denies any other abdominal surgeries. She denies having yellowing of the whites of her eyes. She does report a history of having an IVC filter placed for a clotting disorder. She denies being on blood thinners. I have personally reviewed the referral note. First Point of Contact Screening Do any of the following apply to you? OFFICE USE (If universal masking is not in place, provide patients age 2 years and older with a facemask to wear over their mouth and nose while in the practice.):: Patient answered no to all questions OR only answered yes to question 1 No further action needed : 03/30/2024 Examination Category Sub-Category Detail Notes Category Not es GENERAL SURGERY Constitutional: no apparent dist ress, alert and oriented to person, place and time, well hydrated Neck: supple, no lymphaden opathy, trachea midline Eyes: no scleral icterus, PERRLA Respiratory: non-labored respirat ions on room air, no wheezing or rhonchi Cardiovascular: regular rate and rhy thm, bilateral palpable radial pulses Gastrointestinal (Abdomen): abdomen soft , non-tender, non-distended, Nonreducible 2 cm umbilical hernia, palpable, firm, mobile subcutaneous left abdominal wall 3 cm mass Lymphatic: no axillary, supracl avicular, or cervical node enlargement Musculoskeletal: 5/5 strength in all extremities, no upper extremity defects Neurologic: no focal abnormaliti es, intact sensation and mentation Head: normocephalic, no sc alp or face lesions
--- OUTSIDE RECORDS SUMMARY | 2024-04-09 03:45 | XMS_ITS ---
Author Organization [facility] Augie [facility] Billing Info Address [address] [place] [address] Care Team Providers Care Laundry Operator Finishing Name Role Phone Yung Colón Primary Care Provider ROSINA Collins Unavailable [phone] REASON FOR VISIT robotic apolonia/umbilical hernia repair/abd mass excision Encounters Encounter Location Date Provider Diagnosis [id number] [address] [place] [address] 04/09/2024 ROSINA SHARMA Calculus of gallblad jonelle with chronic cholecystitis without obstruction K80.10 ; Umbilical hernia with obstruction, without gangrene K42.0 ; Intra-abdominal and pelvic swelling, mass and lump, unspecified site R19.00 and 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 Assessments Encounter Date Diagnosis (ICD Code) Assessment Notes Treatment Notes Treatment Clinical Notes Section Notes 04/09/2024 Calculus of gallbladder with chronic cholecystitis without obstruction (ICD-10 - K80.10) 04/09/2024 Umbilical hernia with obstruction, without gangrene (ICD-10 - K42.0) 04/09/2024 Intra-abdominal and pelvic swelling, mass and lump, unspecified site (ICD-10 - R19.00) 04/09/2024 Sclerosing mesenteritis (ICD-10 - K65.4) Plan Of Treatment No Information Progress Notes * Eryn HARO LDOB: 8 (49 yo F)Acc No.[id number]:04/09/2024 PROGRESS NOTE Patient: Eryn SMALL Provider: Amandeep SHARMA MD :1975 A ge:48 Y S ex:Female Date:04/09/2024 C SANGEETA#:[id number] Address:[address] [place], [place] [id number] Pcp:Yung Colón Subjective: * Chief Complaints: * 1 . Robotic apolonia/umbilical hernia repair/abd mass excision. * Medical History: Objective: * Vitals: Assessment: * Assessment: 1. C alculus of gallbladder with chronic cholecystitis without obstruction - K80.10 ?2. U mbilical hernia with obstruction, without gangrene - K42.0 3 . I ntra-abdominal and pelvic swelling, mass and lump, unspecified site - R19.00 4 . Sclerosing mesenteritis - K65.4 Plan: * Treatment: * Procedure Codes: 4 7562 83312, 58088 EXCISION TUMOR SOFT TISSUE ABD WALL 3CM OR GREATER, TthNo: 51, Srfc: , Modifiers: 51 , S2900 ROBOTIC SURGICAL SYSTEM * * This progress note has not b een verified nor is it considered complete until locked and signed by the provider. Sign off status: Pending * Provider: Amandeep SHARMA MD Date: 0 04/09/2024 Generated for Isidra thomas/Corine/Nawafitting on: 04/03/2024 10:43 PM [employer] CONSULT[employer]
--- OUTSIDE RECORDS SUMMARY | 2024-05-03 08:30 | XMS_ITS ---
Author Organization [facility] Billing Info Address [address] [place], [place] [address] [place] [address] Care Team Providers Care Model Maker Scale Name Role Phone Yung Colón Primary Care Provider Yimi JOHNSONANTROSINA Unavailable [phone] Allergies No Known Allergies REASON FOR VISIT 4 week fu/robotic apolonia,umbilical hernia repair, abd mass excision, Controlling HBP-Most Recent Dystolic less than 80 mm Hg, Controlling HBP_Systolic less than 130 mm Hg, GSBRYnmlPE Medications Medication SIG (Take, Route, Frequency, Duration) Notes Start Date End Date Status Furosemide 20 MG Oral for 30 Days Active Clonidine HCl 0.1 MG Oral for 30 Days Active Gabapentin 800 MG Oral for 30 Days Active Benzonatate 100 MG TAKE 1 CAPSULE BY [facility] EVERY 8 HOURS NEEDED FOR COUGH Oral for 7 Days Active Cyclobenzaprine HCl 5 MG Oral for 30 Days Active Venlafaxine HCl ER 75 MG Oral for 30 Days Active Meloxicam 15 MG Oral for 30 Days Active Potassium Chloride ER 10 MEQ Oral for 30 Days Active Social History Tobacco Use: Social History Observation Description Date Details (start date - stop date) Former Smoker NA - NA Tobacco Status: Question Answer Notes Patient is a former smoker Vital Signs Height 66 in 05/03/2024 Weight 270 lbs 05/03/2024 BMI 43.57 kg/m2 05/03/2024 Blood pressure systolic 118 mm Hg 05/03/19 25 Blood pressure diastolic 78 mm Hg 025 Temperature 97.5 degrees Fahrenheit 05/03/19 25 Heart Rate 78 /min 05/03/2024 Oximetry 98 05/03/2024 Encounters Encounter Location Date Provider Diagnosis [id number] [address] [place] [id number] 05/03/2024 ROSINA SHARMA Dietary counseling a nd surveillance Z71.3 ; Postop check Z09 and Severe obesity (BMI >= 40) E66.01 Assessments Encounter Date Diagnosis (ICD Code) Assessment Notes Treatment Notes Treatment Clinical Notes Section Notes 05/03/2024 Dietary counseling and surveillance (ICD-10 - Z71.3) Encouraged balanced nutrition and regular exercise Ms. Haro is a 48-year-old who is presenting for postoperative follow-up 4 weeks after a robotic cholecystectomy, umbilical hernia repair, and abdominal wall mass excision. Patient is progressing appropriately postoperatively. She plans to continue following up with her primary care doctor about her swelling. I provided her her pathology report, that demonstrates mild chronic cholecystitis with cholesterolosis and cholelithiasis, and an encapsulated fat necrosis with dystrophic calcification. I also suggested that she attempt magnesium citrate to help with her constipation. She may follow up with me as needed. She confirms understanding and agrees with this plan. This note has been faxed to the patient's PCP for continuity of care. 05/03/2024 Postop check (ICD-10 - Z09) Ms. Haro is a 48-year-old who is presenting for postoperative follow-up 4 weeks after a robotic cholecystectomy, umbilical hernia repair, and abdominal wall mass excision. Patient is progressing appropriately postoperatively. She plans to continue following up with her primary care doctor about her swelling. I provided her her pathology report, that demonstrates mild chronic cholecystitis with cholesterolosis and cholelithiasis, and an encapsulated fat necrosis with dystrophic calcification. I also suggested that she attempt magnesium citrate to help with her constipation. She may follow up with me as needed. She confirms understanding and agrees with this plan. This note has been faxed to the patient's PCP for continuity of care. 05/03/2024 Severe obesity (BMI >= 40) (ICD-10 - E66.01) Encouraged balanced nutrition and regular exercise Ms. Haro is a 48-year-old who is presenting for postoperative follow-up 4 weeks after a robotic cholecystectomy, umbilical hernia repair, and abdominal wall mass excision. Patient is progressing appropriately postoperatively. She plans to continue following up with her primary care doctor about her swelling. I provided her her pathology report, that demonstrates mild chronic cholecystitis with cholesterolosis and cholelithiasis, and an encapsulated fat necrosis with dystrophic calcification. I also suggested that she attempt magnesium citrate to help with her constipation. She may follow up with me as needed. She confirms understanding and agrees with this plan. This note has been faxed to the patient's PCP for continuity of care. Plan Of Treatment Treatment Notes Assessment Notes Dietary counseling and surveillance Enco uraged balanced nutrition and regular exercise Severe obesity (BMI >= 40) Encouraged ba lanced nutrition and regular exercise Next Appt Details Follow Up: prn, Reason: Progress Notes * Eryn HARO LDOB: 8 (48 yo F)Acc No.[id number]:05/03/2024 PROGRESS NOTE Patient: Eryn SMALL Provider: Amandeep SHARMA MD :1975 A ge:48 Y S ex:Female Date:05/03/2024 C #:[id number] Address:[address] [place], [place] [id number] Pcp:Yung Colón Subjective: * Chief Complaints: * 4 week fu/robotic apolonia,umbilical hernia repair, abd mass excisionControlling HBP-Most Recent Dystolic less than 80 mm HgControlling HBP_Systolic less than 130 mm HgGSBRYnmlPE * HPI: D epression Screening: PHQ-2 (2015 Edition) L ittle interest or pleasure in doing things? N ot at all, F eeling down, depressed, or hopeless? N ot at all, T otal Score 0 . P atient History: Ms. Haro Is a 48-year-old who presents for postoperative follow up 4 weeks after a robotic cholecystectomy, umbilical hernia repair, and abdominal wall mass excision. Patient states that she no longer is experiencing any abdominal or incisional soreness. Other than having some fluid buildup under abdomen from difficulty with her liver function, which is being followed up by a primary care doctor, she has no other complaints. She did report that she has had some constipation. Otherwise, she is feeling well. * ROS: P ertinent positive findings are listed immediately above, and in the HPI. All other systems reviewed, and negative . * Medical History: * Surgical History: b ack surgery hernia repair 04/09/2024holecystectomy, laparoscopic 04/09/2024 * Hospitalization/Major Diagno stic Procedure: s ee [...] cm, Wt: 270 lbs, Wt-k.47 kg, BMI:43.57, Weight Change: 0 lbs, Body Surface Area: 2.39, BP:118/78, Temp:97.5F, HR:78, Oxygen sat %:98. * Examination: G ENERAL SURGERY: Constitutional: n [...] pulses. Gastrointestinal (Abdomen): a bdomen soft, non-tender, and non-distended. Lymphatic: n o axillary, supraclavicular, or cervical node enlargement. Musculoskeletal: B ilateral lower extremity and abdominal wall edema. Skin: w ell-healed laparoscopic incisions, clean, dry, and intact without erythema. Neurologic: n o focal abnormalities, intact sensation and mentation. Assessment: * Assessment: 1. P ostop check - Z09 (Primary) 2 . D ietary counseling and surveillance - Z71.3 3 . S evere obesity (BMI >= 40) - E66.01 Ms. Haro is a 48-year-old who is presenting for postoperative follow-up 4 weeks after a robotic cholecystectomy, umbilical hernia repair, and abdominal wall mass excision. Patient is progressing appropriately postoperatively. She plans to continue following up with her primary care doctor about her swelling. I provided her her pathology report, that demonstrates mild chronic cholecystitis with cholesterolosis and cholelithiasis, and an encapsulated fat necrosis with dystrophic calcification. I also suggested that she attempt magnesium citrate to help with her constipation. She may follow up with me as needed. She confirms understanding and agrees with this plan. This note has been faxed to the patient's PCP for continuity of care. Plan: * Treatment: 2. S evere obesity (BMI >= 40) Notes:Encouraged balanced nutrition and regular exercise * Procedure Codes: 3 078F DIAST BP <80 MM [id number] SYST BP LT 130 MM HG * Follow Up: p rn * * MICA PLATE LAYER Sign off status: Completed true * Provider: Amandeep SHARMA MD Date: 0 05/03/2024 Generated for Isidra thomas/Corine/Annelsmitting on: 1 04/03/2024 10:43 PM HAND MICA PLATE LAYER History and Physical Notes * HPI (History of Present Illness) Category Sub-Category Detail Notes Category Not es Depression Screening PHQ-2 (2015 Edition) Little interest or pleasure in doing things?: Not at all Feeling down, depressed, or hopeless?: N ot at all Total Score: 0 Patient History Ms. Haro I s a 48-year-old who presents for postoperative follow up 4 weeks after a robotic cholecystectomy, umbilical hernia repair, and abdominal wall mass excision. Patient states that she no longer is experiencing any abdominal or incisional soreness. Other than having some fluid buildup under abdomen from difficulty with her liver function, which is being followed up by a primary care doctor, she has no other complaints. She did report that she has had some constipation. Otherwise, she is feeling well. Examination Category Sub-Category Detail Notes Category Not [...] pulses Gastrointestinal (Abdomen): abdomen soft , non-tender, and non-distended Lymphatic: no axillary, supracl avicular, or cervical node enlargement Musculoskeletal: Bilateral lower extr emity and abdominal wall edema Skin: well-healed laparosc opic incisions, clean, dry, and intact without erythema Neurologic: no focal abnormaliti es, intact sensation and mentation Head: normocephalic, no sc alp or face lesions
[2025-02-01 23:35] VITALS: O2SAT 98
[2025-02-01 23:36] VITALS: BP 131/79; PULSE 60; RESP 20; TEMP 36.9; O2SAT 100; BMI 48.4
--- NOTE | 2025-02-01 23:36 | CT_ITS ---
PROCEDURE INFORMATION: Exam: CT Thoracic Spine Without Contrast Exam date and time: 02/01/2025 11:55 PM Age: 49 years old Clinical indication: Pain in thoracic spine; Additional info: Fall from wheelchair TECHNIQUE: Imaging protocol: Computed tomography of the thoracic spine without contrast. Radiation optimization: All CT scans at this facility use at least one of these dose optimization techniques: automated exposure control; mA and/or kV adjustment per patient size (includes targeted exams where dose is matched to clinical indication); or iterative reconstruction. COMPARISON: CT CERVICAL SPINE WO CON 02/01/2025 11:52 PM FINDINGS: Bones/joints: No acute fracture. Normal alignment. Diffuse moderate degenerative disc disease and facet arthropathy is present. No significant disc bulge or herniation. No severe spinal canal stenosis. No significant neural foraminal narrowing. Soft tissues: Unremarkable. Other findings: Detail is limited secondary to the patient's body habitus. IMPRESSION: No malalignment or appreciable fracture. Limited detail secondary to the patient's body habitus.
--- NOTE | 2025-02-01 23:36 | CT_ITS ---
PROCEDURE INFORMATION: Exam: CT Head Without Contrast Exam date and time: 02/01/2025 11:50 PM Age: 49 years old Clinical indication: Injury or trauma; Fall; Additional info: Fall from wheelchair bumped top of head TECHNIQUE: Imaging protocol: Computed tomography of the head without contrast. Radiation optimization: All CT scans at this facility use at least one of these dose optimization techniques: automated exposure control; mA and/or kV adjustment per patient size (includes targeted exams where dose is matched to clinical indication); or iterative reconstruction. COMPARISON: No relevant prior studies available. FINDINGS: Brain: No intracranial hemorrhage. No mass. No edema. Cerebral ventricles: No hydrocephalus. Paranasal sinuses: Minimal focal mucosal thickening of RIGHT maxillary sinus. Mastoid air cells: No significant effusion. Orbital cavities: Unremarkable as visualized. Bones: No acute fracture. Soft tissues: Unremarkable. IMPRESSION: No intracranial hemorrhage.
--- NOTE | 2025-02-01 23:36 | XR_ITS ---
PROCEDURE INFORMATION: Exam: XR Left Ankle Exam date and time: 02/01/2025 11:44 PM Age: 49 years old Clinical indication: Pain; Ankle; Left; Additional info: Fall from wheelchair twisted ankle TECHNIQUE: Imaging protocol: Radiologic exam of the left ankle. Views: 3 or more views. COMPARISON: No relevant prior studies available. FINDINGS: Bones/joints: Severe degenerative changes of the tibiotalar joint are noted. There is evidence of an old healed fibular fracture. Ghost holes are present from prior fibular fixation. Soft tissues: Soft tissue swelling most prominent laterally and anteriorly. IMPRESSION: Soft tissue swelling. No acute fracture.
--- NOTE | 2025-02-01 23:36 | CT_ITS ---
PROCEDURE INFORMATION: Exam: CT Cervical Spine Without Contrast Exam date and time: 02/01/2025 11:52 PM Age: 49 years old Clinical indication: Injury or trauma; Fall; Additional info: Fall from wheelchair TECHNIQUE: Imaging protocol: Computed tomography of the cervical spine without contrast. Radiation optimization: All CT scans at this facility use at least one of these dose optimization techniques: automated exposure control; mA and/or kV adjustment per patient size (includes targeted exams where dose is matched to clinical indication); or iterative reconstruction. COMPARISON: No relevant prior studies available. FINDINGS: Limitations: Motion artifact - mild. Vertebrae: No acute fracture. Normal alignment. Straightening of cervical spine. Mild degenerative disc disease within lower cervical spine. Lungs: Unremarkable as visualized. Soft tissues: Unremarkable. IMPRESSION: No fracture.
--- NOTE | 2025-02-01 23:36 | CT_ITS ---
PROCEDURE INFORMATION: Exam: CT Lumbar Spine Without Contrast Exam date and time: 02/01/2025 11:57 PM Age: 49 years old Clinical indication: Injury or trauma; Fall; Additional info: Fall, HX partial paralysis lumbar osteo, surgery TECHNIQUE: Imaging protocol: Computed tomography of the lumbar spine without contrast. Radiation optimization: All CT scans at this facility use at least one of these dose optimization techniques: automated exposure control; mA and/or kV adjustment per patient size (includes targeted exams where dose is matched to clinical indication); or iterative reconstruction. COMPARISON: CT THORACIC SPINE WO CON 02/01/2025 11:55 PM FINDINGS: Bones/joints: No acute fracture. Normal alignment. Moderate to severe degenerative changes most significant at the L2-L3, L4-L5 and L5-S1 levels. There is posterior decompression from L3 through L5. No significant disc bulge or herniation. No severe spinal canal stenosis. Prominent bone foraminal stenosis is noted bilaterally L2-L3 and L5-S1. Soft tissues: Unremarkable. Other findings: Detail is limited secondary to patient's body habitus. IMPRESSION: No acute lumbar spine fracture. Limited detail secondary to the patient's body habitus.
--- NOTE | 2025-02-01 23:41 | PC.NURSE ---
Pt awake and alert Skin pink warm and dry Resp full and easy Speech clear and appropriate Abraision noted to left ankle. No hematoma noted to head
--- OUTSIDE RECORDS SUMMARY | 2025-02-01 23:43 | XMS_ITS | Patient Health Record ---
Author Organization [facility] Augie ramos Billing Info Address [address] [place] [address] Care Team Providers Care Medical Staff Assistant Name Role Phone Katarzyna, Yung Primary Care Provider ROSINA Collins [phone] Allergies No Known Allergies Results Component Value Reference Range Notes A1C HEMOGLOBIN([facility]-A1C) Reviewed date:04/06/2024 08:52:16 AM Interpretation: Performing Lab:[facility] [id number] [facility] [id number] Notes/Report: HEMOGLOBIN A1C 5.8 4.2-6.3 % If: Hemoglobin is less than 5.0g/dl If: Total Hemoglobin A1C is less than 0.3 g/dl Then: Hemoglobin A1C % cannot be calculated. Note Ordering Provider: Rosina Zhang CBC WITH PLATELETS([facility]-CBCP ) Reviewed date:04/06/2024 08:52:29 AM Interpretation: Performing Lab:ML, [facility] [id number] [facility] [address] Notes/Report: WHITE BLOOD CELL 9.1 4.5-11.0 K/UL RED BLOOD CELL 3.59 4.20-5.40 M/dL HEMOGLOBIN 10.5 12.0-16.0 G/DL HEMATOCRIT 32.3 37.0-47.0 % MEAN CELL VOLUME 90 78-98 fL MEAN CELL HGB 29.2 26.1-33.9 PG MEAN CELL HGB CONCENTRATION 32.5 32.4-35.8 % RED CELL DISTRIBUTION WIDTH 14.3 11.0-15.0 % PLATELET COUNT 121 145-412 K/uL MEAN PLATELET VOLUME 11.5 7.0-12.0 fL Note Ordering Provider: Rosina Zhang COMPREHENSIVE METABOLIC PROF ([facility]-CMP) Reviewed date:04/06/2024 08:52:20 AM Interpretation: Performing Lab:[place] [id number] [facility] [address] Notes/Report: The Glomerular Filtration Rate is a calculated parameter based on serum Creatinine levels, patient age, and sex. GFR values less than 60 mL/min/1.73 square meters are indicative of Chronic Kidney Disease. Values less than 15 mL/min/1.73 square meters indicate Kidney failure. The calculation for GFR is based on the CKD-EPI(2020) calculation. This formula is race indifferent and is the recommended formula for GFR by the National Kidney Foundation for adults. The GFR will not calculate if the sex is Unknown or if the patient's age is <18 years. SODIUM 137 137-145 mmol/L POTASSIUM 4.2 3.5-5.1 mmol/L CHLORIDE 104 98-110 mmol/l CARBON DIOXIDE 27.0 21.0-32.0 mmol/L GLUCOSE 112 74-106 mg/dL BLOOD UREA NITROGEN 28 7-20 mg/dl CREATININE 1.6 0.6-1.3 mg/dl TOTAL PROTEIN 7.9 6.3-8.2 G/DL ALBUMIN 2.8 3.5-5.0 g/dl CALCIUM 8.4 8.5-10.1 mg/dl CORRECTED CALCIUM 9.4 9.0-10.1 mg/dl BILIRUBIN TOTAL 0.5 0.2-1.0 mg/dl AST (SGOT) 22.0 15.0-37.0 U/L ALT (SGPT) 19 13-56 U/L ALKALINE PHOSPHATASE 115 50-136 U/L Note Ordering Provider: Rosina Zhang ANION GAP 6.0 4-14 GFR CKD-EPI 2020 40 HCG SERUM QUAL([facility]-HCGQL) Reviewed date:04/06/2024 08:52:27 AM Interpretation: Performing Lab:ML, [id number] [id number] Notes/Report: HCG SERUM QUAL NEG NEGATIVE THIS PROCEDURE HAS A URINE HCG SENSITIVITY OF 20mIU/ML AND A SERUM HCG SENSITIVITY OF 10mIU/ML. FALSE NEGATIVE RESULTS MAY OCCUR WHEN LEVELS OF HCG ARE BELOW THE SENSITIVITY LEVEL OF THE TEST. WHEN PREGANACY IS STILL SUSPECTED, A FIRST MORNING URINE SPECIMEN SHOULD BE COLLECTED 48 HOURS LATER AND TESTED. OCCASIONALLY, SPECIMENS CONTAINING LESS THAN 50mIU/ML FOR URINE AND SERUM MAY TEST WEAKLY POSITIVE. THESE ARE REPORTED INCONCLUSIVE AND SHOULD BE REPEATED IN 48 HOURS WITH A FIRST MORNING SERUM OR URINE SPECIMEN. IN CERTAIN CIRCUMSTANCES, A QUANTITIATIVE BETA HCG MAY BE WARRANTED. VERY DILUTE URINE SPECIMENS, INDICATED BY A LOW SPECIFIC GRAVITY, MAY NOT CONTAIN SVP RESEARCH AND STRATEGIC ANALYSIS LEVELS OF HCG. IF IS STILL SUSPECTED, A FIRST MORNING URINE SPECIMEN SHOULD BE COLLECTED 48 HOURS LATER AND TESTED. FOR URINE AND SERUM MAY TEST WEAKLY POSITIVE. THESE ARE REPORTED INCONCLUSIVE AND SHOULD BE REPEATED IN 48 HOURS. IN CERTAIN CIRCUMSTANCES A QUANTITATIVE BETA HCG MAY BE WARRANTED. Note Ordering Provider: Rosina Zhang GLUCOSE (POINT OF CARE)([facility] -POC[facility]U) Reviewed date:04/09/2024 02:45:41 PM Interpretation: Performing Lab:POC, PO[facility] [id number] [place] [address] Notes/Report: Solid Waste Disposal Manager ID: [id number] GLUCOSE (POINT OF CARE) 127 70-110 mg/dL Note Ordering Provider: Rosina Zhang GLUCOSE (POINT OF CARE)([facility] -POC[facility]) Reviewed date:04/09/2024 02:45:49 PM Interpretation: Performing Lab:[facility], POINT OF CARE [id number] [place] [address] Notes/Report: Solid Waste Disposal Manager ID: [id number] GLUCOSE (POINT OF CARE) 99 70-110 mg/dL Note Ordering Provider: Rosina Zhang GLUCOSE (POINT OF CARE)([facility] -POC[facility]) Reviewed date:04/09/2024 02:45:39 PM Interpretation: Performing Lab:POC, POINT OF CARE [id number] [place] [address] Notes/Report: Solid Waste Disposal Manager ID: [id number] GLUCOSE (POINT OF CARE) 171 70-110 mg/dL Note Ordering Provider: Rosina Zhang PROTHROMBIN TIME([facility]-PT) Reviewed date:04/06/2024 08:52:25 AM Interpretation: Performing Lab:, [facility] [id number] [place] [address] Notes/Report: PROTHROMBIN TIME PATIENT 12.1 9.4-12.5 SECS For vitamin K antagonists (eg, warfarin), the prothrombin time (PT/INR) is recommended. Direct oral anticoagulant medications (non-vitamin K) should not be monitored with PT/INR or aPTT because the effect of these tests is not predictable. For unfractionated heparin the activated partial thromboplastin time (aPTT) and/or activated clotting time are commonly used, but the heparin assay (factor Xa inhibition) may also be employed. For low molecular weight heparin or danaparoid, monitoring is often not necessary, but the heparin assay (factor Xa inhibition) may be used in certain circumstances, as the aPTT is generally insensitive to the effect of these agents. Direct parenteral thrombin inhibitors are often monitored using aPTT. The thrombin time may be useful to qualitatively verify the presence of direct thrombin inhibitors. INTERNATIONAL NORMAL RATIO 1.1 0.8-1.1 Note Ordering Provider: Rosina Zhang PARTIAL THROMBOPLASTIN TIME( NII-PTT) Reviewed date:04/06/2024 08:52:23 AM Interpretation: Performing Lab:[facility] [id number] [place] [address] Notes/Report: PTT PATIENT 24.6 25.1-36.5 SECS PTT Therapeut ic Range: 49.9 - 81.2 sec Note Ordering Provider: Rosina Zhang UA NO REF[facility] CULTURE[facility]) Reviewed date:04/06/2024 08:59:54 AM Interpretation: Performing Lab:[id number] [place] [address] Notes/Report: Note Ordering Provider: Rosina Zhang UA COLOR Light [place] Yellow UA APPEARANCE Turbid Clear UA SPECIFIC GRAVITY 1.011 1.001-1.035 UA PH DIPSTICK 5.5 5.0-8.5 UA LEUKOCYTE ESTERASE DIPSTICK 500 (Large 3+) Negative WBC/uL UA NITRITE DIPSTICK Positive Negative UA PROTEIN DIPSTICK 20 (Trace) Negative mg/dL UA GLUCOSE DIPSTICK Negative Negative mg/dL UA KETONE DIPSTICK Negative Negative mg/dL UA UROBILINOGEN DIPSTICK Normal Normal MG/DL UA BILIRUBIN DIPSTICK Negative Negative MG/DL UA BLOOD DIPSTICK 0.06 (1+) Negative mg/dL UA MICROSCOPIC([facility]-UAM) Reviewed date:04/06/2024 08:59:47 AM Interpretation: Performing Lab:[place] [id number] [place] [address] Notes/Report: Note Ordering Provider: Rosina Zhang UA RBC 0-2 0-2 /HPF UA WBC >100 0-5 /HPF UA EPITHELIAL CELLS 0-5 SQUAM UA BACTERIA 4+ NONE /HPF UA AMORPHOUS SEDIMENT 1+ NONE /HPF Reason For Referral Reason gallstones Referring Provider First Name Yung Referring Provider Last Name Katarzyna Referring Provider Speciality Surgery Referred Organization [id number] Referred Provider ROSINA ZHNAG Referred Address [address], [place],[address], Referred Provider Specialty Surgery Referral Priority Routine Medications Medication SIG (Take, Route, Frequency, Duration) Notes Start Date End Date Status Furosemide 20 MG Oral for 30 Days Active Venlafaxine HCl ER 75 MG Oral for 30 Days Active Clonidine HCl 0.1 MG Oral for 30 Days Active Gabapentin 800 MG Oral for 30 Days Active Benzonatate 100 MG TAKE 1 CAPSULE BY [facility] EVERY 8 HOURS NEEDED FOR COUGH Oral for 7 Days Active Cyclobenzaprine HCl 5 MG Oral for 30 Days Active Meloxicam 15 MG Oral for 30 Days Active Potassium Chloride ER 10 MEQ Oral for 30 Days Active Social History Tobacco Use: Social History Observation Description Date Details (start date - stop date) Former Smoker NA - NA Tobacco Status: Question Answer Notes Patient is a former smoker Vital Signs Heart Rate 78 /min 05/03/2024 Temperature 97.5 degrees Fahrenheit 05/03/2024 Oximetry 98 05/03/2024 Blood pressure diastolic 78 mm Hg 05/03/2024 Height 66 in 05/03/2024 Blood pressure systolic 118 mm Hg 05/03/2024 Weight 270 lbs 05/03/2024 BMI 43.57 kg/m2 05/03/2024 Encounters Encounter Location Date Provider Diagnosis [id number] [facility] [address] [facility] [address] [place] [address] 03/30/2024 ROSINA ZHANG Dietary counseling a nd surveillance Z71.3 ; Symptomatic cholelithiasis K80.20 ; Severe obesity (BMI >= 40) E66.01 ; Umbilical hernia K42.9 and Abdominal wall mass R19.00 [id number] [facility] [address] [facility] [address] [place] [address] 05/03/2024 ROSINA ZHANG Dietary counseling a nd surveillance Z71.3 ; Postop check Z09 and Severe obesity (BMI >= 40) E66.01 [id number] [facility] [address] [address] 04/09/2024 ROSINA ZHANG Calculus of gallblad jonelle with chronic cholecystitis without obstruction K80.10 ; Umbilical hernia with obstruction, without gangrene K42.0 ; Intra-abdominal and pelvic swelling, mass and lump, unspecified site R19.00 and 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 Poon is a 48-year-old who presents as a [...] 03/30/2024 Symptomatic cholelithiasis (ICD-10 - K80.20) Ms. Poon is a 48-year-old who presents as a [...] the referring provider for continuity of care. 04/09/2024 Calculus of gallbladder with chronic cholecystitis without obstruction (ICD-10 - K80.10) 05/03/2024 Dietary counseling and surveillance (ICD-10 - Z71.3) Encouraged balanced nutrition and regular exercise Ms. Poon is a 48-year-old who is presenting for [...] 05/03/2024 Postop check (ICD-10 - Z09) Ms. Poon is a 48-year-old who is presenting for [...] Encouraged balanced nutrition and regular exercise Ms. Poon is a 48-year-old who is presenting for [...] the patient's PCP for continuity of care. 04/09/2024 Umbilical hernia with obstruction, without gangrene (ICD-10 - K42.0) 03/30/2024 Severe obesity (BMI >= 40) (ICD-10 - E66.01) Encouraged balanced nutrition and regular exercise Ms. Poon is a 48-year-old who presents as a [...] 03/30/2024 Umbilical hernia (ICD-10 - K42.9) Ms. Poon is a 48-year-old who presents as a [...] the referring provider for continuity of care. 04/09/2024 Intra-abdominal and pelvic swelling, mass and lump, unspecified site (ICD-10 - R19.00) 04/09/2024 Sclerosing mesenteritis (ICD-10 - K65.4) 03/30/2024 Abdominal wall mass (ICD-10 - R19.00) Ms. Poon is a 48-year-old who presents as a [...] for continuity of care. Plan Of Treatment No Information Insurance Providers Payer Name Payer Address Payer Phone Subscriber Number Group Number Insured Name Patient Relationship to Insured Coverage Start Date Coverage End Date [place]ICAID [place] [address] [place] [id number] Eryn Poon Self - patient is the insured Medical (General) History Medical History History ICD Code asthma Arthritis Depression Diabetes mellitus Hepatitis Emphysema Clotting disorder Surgical History Surgery Date(Month/Year) cholecystectomy, laparoscopic 04/09/2024 hernia repair 04/09/2024 back surgery Hospitalization History Reason Date(Month/Year) see sx hx
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
--- NOTE | 2025-02-01 23:45 | HMH.EDGENADL ---
Discharge Plan Disposition Patient Disposition: Home, Self-Care Condition: Good Prescriptions Prescriptions: No Action furosemide [Lasix] 20 mg tablet 20 mg PO BID PRN (Reason: edema) Qty: 60 4RF potassium chloride 10 mEq capsule, extended release 10 meq PO BID clonidine HCl 0.1 mg tablet 0.1 mg PO TID cetirizine 10 mg tablet 10 mg PO DAILY meloxicam 15 mg tablet 15 mg PO DAILY omeprazole 40 mg capsule,delayed release(DR/EC) 40 mg PO DAILY acetaminophen 650 mg tablet extended release 650 mg PO Q4H PRN zinc sulfate 50 mg zinc (220 mg) tablet 50 mg PO DAILY ascorbic acid (vitamin C) [Vitamin C] 500 mg tablet 500 mg PO BID selenium sulfide 1 % shampoo 1 applic topical 2XW Rx Instructions: massage into affected area; leave on for 10 mins ; rinse off thoroughly insulin lispro 100 unit/mL insulin pen 1 sliding scale dose SQ QID lactulose 10 gram/15 mL solution 30 g PO DAILY insulin glargine [Lantus Solostar U-100 Insulin] 100 unit/mL (3 mL) insulin pen 20 unit SQ DAILY Certavite-Antioxidant 18-400 mg-mcg tablet 1 tab PO DAILY sofosbuvir-velpatasvir 400-100 mg tablet 1 tab PO DAILY venlafaxine 150 mg capsule,extended release 24hr 150 mg PO DAILY Qty: 30 2RF doxepin 100 mg capsule 100 mg PO HS Qty: 30 0RF alprazolam [Xanax] 1 mg tablet 1 mg PO TID PRN (Reason: anxiety) Qty: 90 0RF (DME) Blood Glucose Test Strip See Rx Instructions .ROUTE .MEDSUPPLY Qty: 50 7RF Rx Instructions: As directed (DME) 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 meter [Blood Glucose Monitoring] Kit See Rx Instructions .ROUTE .MEDSUPPLY Qty: 1 0RF Rx Instructions: As directed (DME) Dexcom G7 Dietary Aid Misc See Rx Instructions .Route Qty: 1 0RF Rx Instructions: As directed (DME) lancets Misc See Rx Instructions .ROUTE .MEDSUPPLY Qty: 200 0RF Rx Instructions: To be used 3 times daily as directed (DME) pen needle, diabetic [Comfort EZ Pen Vanduser] 31 gauge x 1/4 needle See Rx Instructions .Route Qty: 100 7RF Rx Instructions: As directed gabapentin 800 mg tablet See Rx Instructions .ROUTE .COMPLEX Qty: 90 1RF Dose Instruction: TAKE ONE TABLET BY MOUTH THREE TIMES DAILY MAY CAUSE DROWSINESS Rx Instructions: TAKE ONE TABLET BY MOUTH THREE TIMES DAILY MAY CAUSE DROWSINESS (DME) Dexcom G7 Sensor Device See Rx Instructions .Route Qty: 3 12RF Rx Instructions: As directed Ozempic 0.25 mg or 0.5 mg (2 mg/3 mL) pen injector 0.5 mg SQ WEEKLY Qty: 3 0RF Rx Instructions: for 4 weeks ondansetron HCl 4 mg tablet 4 mg PO Q8H PRN (Reason: nausea and vomiting) 5 Days Qty: 20 0RF Referrals Follow up/Referrals: Jacqueline Krueger APRN [Primary Care Provider, Behavioral Health] - See instructions Activity Restrictions/Add. Instructions Additional Instructions/Restrictions: You were evaluated in the ER and are believed to be appropriate for discharge at this time. Continue all home medications as previously prescribed. Make an appointment with your primary care doctor for reevaluation in 2 to 3 days. Return to the ER with any new, worsening, or otherwise concerning symptoms. Clinical Impressions Clinical Impression: Fall, Ankle pain, left, Chronic low back pain Print Language Print Language: Somali Discharge ED Provider: Zaria Quevedo Adult HPI General Chief complaint: Fall Stated complaint: Fall Time Seen by Provider: 02/01/25 23:36 Mode of Arrival: EMS Source of Information: Patient Description of Symptoms (Recalled from ER Triage Doc. by RN): Pt states she was reaching for something and fell forward out of her wheelchair and struck head on coffee table. Denies LOC Pt states he left ankle hurts History of Present Illness HPI narrative: 49-year-old female with history of partial paralysis, lumbar osteomyelitis, morbid obesity, hypertension, IVC filter, GERD, diabetes on insulin presents to the ER with EMS complaining of strike to the head, left ankle pain. Patient reports she was in her wheelchair and currently is living alone because she does not have any help at home so she leaned forward to grab something when she fell forward out of the wheelchair striking the top of her head on the edge of the coffee table as she fell to the ground, landing on her back. She reports she twisted her left ankle. She reports a very brief near-loss of consciousness after striking her head but denies fully blacking out. She does not take blood thinners. She states she has diffuse, chronic pain and she had reported pain all over to EMS, but on further discussion states her acute concerns are left ankle pain and strike to the head. She has no new numbness, tingling, or weakness. She has some sensation in her feet which she states is at baseline, she also has some movement of her toes which she states is at baseline. She reports a small goose egg on the top of her head. No other new complaints or concerns. Denies saddle anesthesia or bowel or bladder incontinence. Patient denies any chest pain or difficulty breathing, no abdominal pain, nausea, vomiting, or diarrhea. No recent fevers or chills, no sore throat or runny nose. No cough or congestion. Denies dysuria or hematuria. Related Data Home Medications ?Medication ?Instructions ?Recorded ?Confirmed acetaminophen 650 mg 650 mg PO Q4H PRN 11/18/24 01/27/25 tablet,extended release ascorbic acid (vitamin C) 500 mg 500 mg PO BID 11/18/24 01/27/25 tablet (Vitamin C) cetirizine 10 mg tablet 10 mg PO DAILY 11/18/24 01/27/25 clonidine HCl 0.1 mg tablet 0.1 mg PO TID 11/18/24 01/27/25 insulin glargine 100 unit/mL (3 20 unit SQ DAILY 11/18/24 01/27/25 mL) subcutaneous pen (Lantus Solostar U-100 Insulin) insulin lispro 100 unit/mL 1 sliding scale dose SQ QID 11/18/24 01/27/25 subcutaneous pen lactulose 10 gram/15 mL oral 30 g PO DAILY 11/18/24 01/27/25 solution meloxicam 15 mg tablet 15 mg PO DAILY 11/18/24 01/27/25 multivitamin-ferrous 1 tab PO DAILY 11/18/24 01/27/25 fumarate-folic acid 18 mg-400 mcg tablet (Certavite-Antioxidant) omeprazole 40 mg capsule,delayed 40 mg PO DAILY 11/18/24 01/27/25 release potassium chloride 10 mEq 10 meq PO BID 11/18/24 01/27/25 capsule,extended release selenium sulfide 1 % shampoo 1 applic topical 2XW 11/18/24 01/27/25 sofosbuvir 400 mg-velpatasvir 100 1 tab PO DAILY 11/18/24 01/27/25 mg tablet zinc sulfate 50 mg zinc (220 mg) 50 mg PO DAILY 11/18/24 01/27/25 tablet Previous Rx's ?Medication ?Instructions ?Recorded furosemide 20 mg tablet (Lasix) 20 mg PO BID PRN edema #60 tabs 11/18/24 blood sugar diagnostic (Blood #50 ea 12/07/24 Glucose Test strips) 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 meter (Blood Glucose #1 ea 12/07/24 Monitoring kit) 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,professional system administrator,cont #1 ea 12/07/24 (Dexcom G7 Dietary Aid) lancets #200 ea 12/07/24 pen needle, diabetic 31 gauge x #100 ea 12/07/2403/27 (Comfort EZ Pen Vanduser) ondansetron HCl 4 mg tablet 4 mg PO Q8H PRN nausea and 12/10/24 vomiting 5 days #20 tabs doxepin 100 mg capsule 100 mg PO HS #30 caps 12/24/24 venlafaxine 150 mg 150 mg PO DAILY #30 caps 12/24/24 capsule,extended release 24 hr 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 sensor (Dexcom G7 #3 ea 01/11/25 Sensor device) gabapentin 800 mg tablet See Rx Instructions .Route 01/11/25 .COMPLEX #90 tabs semaglutide 0.25 mg or 0.5 mg (2 0.5 mg (0.736 mL) SQ WEEKLY #3 mL 01/14/25 mg/3 mL) subcutaneous pen injector (Ozempic) alprazolam 1 mg tablet (Xanax) 1 mg PO TID PRN anxiety #90 tabs 01/27/25 Allergies Allergy/AdvReac Type Severity Reaction Status Date / Time No Known Allergies Allergy Verified 01/27/25 13:22 [facility] Disclaimer: The information contained in this section may have been updated after the patient was seen, as this information can be updated by other users. Medical History (Reviewed 01/27/25 @ 13:22 by Sarah Giraldo [facility]) Umbilical hernia Adjustment disorder with mixed anxiety and depressed mood Atelectasis Bipolar disorder, unspecified Calculus of gallbladder with acute cholecystitis without obstruction Dependence on wheelchair Edema, unspecified Fatty (change of) liver, not elsewhere classified Gastro-esophageal reflux disease without esophagitis Acute low back pain due to spinal disorder Morbid (severe) obesity due to excess calories Other stimulant dependence, uncomplicated Generalized polyneuropathy Chronic kidney disease due to diabetes mellitus Unspecified open wound, left ankle, subsequent encounter Presence of IVC filter Hypertension DDD (degenerative disc disease), thoracic DDD (degenerative disc disease), lumbar DDD (degenerative disc disease), cervical Surgical History H/O hernia repair H/O toe surgery History of colonoscopy [place] teeth extracted Hx of cholecystectomy History of ankle surgery History of back surgery Social History Smoking Status: Never smoker smoking status start date: 1990 how long ago did patient quit smokin alcohol intake: never substance use type: former substance user and methamphetamine current occupational status: disabled Travel in the last 8 weeks?: None Other Medical History Have you received the Pneumonia Vaccine: Yes ([id number]) ROS Obtained: Yes Systems reviewed as appropriate & no additional complaints except as documented Per HPI Physical Exam General General appearance: alert, in no apparent distress and obese Head Head exam: normocephalic and other (small (2cm) hematoma on top of scalp with no abrasion, laceration, deformity, or crepitus) Eye Eye exam: Present PERRL and EOMI; Absent jaundice, conjunctival injection or nystagmus ENT ENT exam: Present mucous membranes moist Neck Neck exam: Present normal inspection and full ROM; Absent tenderness Chest Chest inspection: Present symmetric chest wall rise; Absent tenderness Respiratory Respiratory exam: Present normal lung sounds bilaterally; Absent respiratory distress, wheezes or stridor Cardiovascular Cardiovascular exam: Present regular rate and normal rhythm Abdominal Exam Abdominal exam: Present soft; Absent distention, tenderness, guarding or rebound Extremities Exam Extremities exam: Present full ROM, tenderness (Mild left ankle worse over the lateral aspect), normal capillary refill, joint swelling (Mild left ankle) and other (Healing abrasion with scab present on the lateral aspect of left ankle); Absent edema Back Exam Back exam: Present tenderness (Diffuse low lumbar with no focal tenderness, deformity, or step-off) Neurological Exam Neurological exam: Present alert, oriented X3 and motor sensory deficit (Diminished sensation in bilateral lower extremities is at baseline, poor strength in bilateral lower extremities but is at baseline. No saddle anesthesia.) Psychiatric Psychiatric exam: Present normal affect and normal mood Skin Skin exam: Present warm and dry Medical Decision Making Medical Records Medical records reviewed: Yes I reviewed the patient's medical records. Screening: Per USPSTF and CDC recommendations, given the prevalence of disease in our region, it is our hospital?s policy to screen for HIV and viral Hepatitis for all patients aged 18 and over and those with ongoing risk factors. Adalid Inquiry Pt receiving controlled substance: No Vital Signs: 02/01/25 23:36 02/02/25 00:03 02/02/25 00:17 Temperature 98.4 F Temperature Source Oral Pulse Rate 86 Pulse Rate [Right Radial] 60 Respiratory Rate 20 Blood Pressure 118/80 Blood Pressure [Right Arm] 131/79 Blood Pressure Mean 92 Blood Pressure Mean [Right Arm] 96 Blood Pressure Source [Right Arm] Automatic Cuff Blood Pressure Position [Right Arm] Supine 02 Sat by Pulse Oximetry 100 99 Oxygen Delivery Method Room Air Orders (Tests/Meds): ED MEDICATIONS Discontinued Medications Generic Name Dose Route Start Last Admin Trade Name Freq PRN Reason Stop Dose Admin Ketorolac Tromethamine 30 mg 02/01/25 23:41 02/02/25 00:14 Ketorolac 30mg/Ml Vial IM 02/01/25 23:42 30 mg ONCE ONE Administration ORDERS Category Date Time Status CT cervical spine wo con Stat Cat Scan 02/01/25 23:[address] head/brain wo con Stat Cat Scan 02/01/25 23:[address] lumbar spine wo con Stat Cat Scan 02/01/25 23:[address] thoracic spine wo con Stat Cat Scan 02/01/25 23:36 Taken Ankle XR - Left minimum 3 Views [XR ankle LT min 3V] Exams 02/01/25 23:36 Completed Stat HIV Combo Stat Lab 02/01/25 23:41 Ordered Hepatitis C Ab Qual. W/ RFX Stat Lab 02/01/25 23:41 Ordered Medical Decision Narrative: In summary, this 49-year-old female with comorbidities described in the HPI presents to the emergency department today with complaints of left ankle pain, knot on the top of the head after fall from her wheelchair. On initial evaluation patient is hemodynamically stable, afebrile, GCS 15, patient has diminished strength and sensation in the lower extremities which she states is at baseline but no saddle anesthesia, she has tenderness in the lateral aspect of the left ankle with mild swelling but neurovascularly intact at her baseline, there is a old, healing wound over the lateral aspect of the left ankle but nothing new. Small palpable hematoma on the top of the scalp with no overlying skin wound. Differential diagnosis includes but is not limited to intracranial bleed, I considered the possibility of axial spine injury but I have low suspicion for this however given patient's complaints of chronic pain including throughout the back, will still evaluate with CT imaging. Considered the possibility of osseous injury in the left ankle. With low energy mechanism of injury and stable vitals no other areas of tenderness or injury identified on exam I have low suspicion for acute intrathoracic or intra-abdominal injury or other traumatic injuries. Based on these concerns, I ordered CT head, CT C, T, L-spine, x-ray left ankle.. Patient received IM Toradol for pain management. X-ray left ankle personally interpreted demonstrates no osseous injury, see radiology read for final interpretation. CT head personally interpreted demonstrates no acute intracranial bleed, mass, or midline shift, no obvious skull fracture. See radiology read for final interpretation. Focal thickening of right maxillary sinus does not correlate clinically. CT cervical spine personally interpreted demonstrates no acute traumatic injury, see radiology read for final interpretation. CT thoracic and lumbar spine were also reviewed, patient has degenerative disease, chronic changes, but no acute injury appreciated. See radiology reads for final interpretations. On reassessment patient is resting comfortably. She is appropriate for discharge at this time. Patient was given instructions on symptomatic management, follow up instructions, and return precautions for the emergency department. Patient indicated understanding and was discharged in stable condition. Critical Care Critical Care Time Critical Care Time: No
[2025-02-02 00:03] VITALS: BP 118/80
[2025-02-02] MEDS: KETOROLAC 30MG/ML VIAL 30 MG IM (00:14)
[2025-02-02 00:17] VITALS: PULSE 86; O2SAT 99
[2025-02-02 00:30] VITALS: BP 121/73; PULSE 91; O2SAT 95
[2025-02-02 00:49] VITALS: PULSE 30; O2SAT 80
[2025-02-02] MEDS: ACETAMINOPHEN 325MG TAB 650 MG PO (01:05)
--- NOTE | 2025-02-02 02:04 | PC.NURSE ---
Pt aware of plans for discharge and awaiting transport
--- NOTE | 2025-02-02 03:15 | PC.NURSE ---
EMS arrived to take patient home and refused transfer due to patient living on the 3rd floor of her building. EMS states they do not feel safe taking her to a 3rd floor appointment due to client being wheelchair bound and home alone. Pt states she cares for herself daily and has not had someone living with her for some time. Pt made aware we are working on transport.
--- NOTE | 2025-02-02 03:16 | PC.NURSE ---
EMS refused transport of pt stating pt had to have someone assume care for her at home. We explained that pt lives alone 14/10, EMS states it is the protocol. I called HS to discuss what the next steps were as pt states she has no one to be there or pick her up. HS recommends keeping her here until morning and allowing telephonic nurse case manager to figure out the next steps.
--- NOTE | 2025-02-02 03:22 | PC.NURSE ---
Pt alert and oriented and again states she cares for herself at home
--- NOTE | 2025-02-02 04:13 | PC.NURSE ---
Pt states she needs to have a bowel movement and needs to get up to a toilet Staff here do not feel safe getting her up. Pt instructed to use a bedpan Pt calling 911 to ask police for transport home. Pt has call light within reach. Instructed to call for help getting off bed benoit and for any assistance needed. Pt instructed to call for assistance due to her fall risk. Pt states she is going to crawl to the bathroom Reinterated she should not get out of bed and that we could not assist her to the restroom
--- NOTE | 2025-02-02 06:29 | PC.NURSE ---
Pt had called 911 asking for a ride. Police sent WARREN up here and he talked in depth with pt. Pt states she can ambulate with a walker and she uses her wheelchair at home. Pt asked for help getting up out of the bed. Pt wanted to transfer from the bed to the wheelchair. Myself, Soheila ([employer]), and Nieves ([employer]) tried to asist pt to the wheelchair. Pt was unable to get into the wheelchair. Pt almost fell to the ground and would have if not for myself and the tech's help. Pt was put back in the bed and told that it was not feasible for her to be transported by WARREN. Pt's story has changed several times since arrival. Pt has stated that she doesn't ambulate, that she does ambulate with a walker, that she can stand & pivot, that she stays in the wheelchair, that she's paralyzed, etc. I am unsure of patient's true baseline when it comes to ambulation. Pt still wants to be discharged back home at this time.
[2025-02-02 06:50] VITALS: BP 95/58; PULSE 88; RESP 20; TEMP 36.8; O2SAT 96
--- NOTE | 2025-02-02 07:10 | PC.NURSE ---
rounded on pt at this time. she is frustrated that she is unable to go home yet. I informed her i was working on a safe discharge home for her and apologized for the inconvenience. pt did get a breakfast tray
--- NOTE | 2025-02-02 07:30 | PC.NURSE ---
spoke with Debora Sanchez CM who stated she would be down shortly to assess pt
--- NOTE | 2025-02-02 08:00 | PC.NURSE ---
Debora Sanchez and this nurse at bedside for pt assessment and discussion of discharge options. pt reported that she is able to ambulate with a walker at home and almost fell this morning because she didnt have any non-skid socks on. this nurse put appropriate footwear on her and she was able to ambulate without assistance to the bedside commode. pt was able to use the commode and ambulate throughout the room with the walker but is still unsteady at times and doesnt believe she will ne able to step up into the care a van safely.
--- NOTE | 2025-02-02 08:20 | PC.NURSE ---
spoke chris Miller at EMS who stated they would transport her EMS if she was willing to pay the bill that is approx. $800.
--- NOTE | 2025-02-02 08:28 | SW/DCPLANNER ---
I spoke w/ patient in the ED regarding discharge planning. Patient stated that she spent a year at a L[place] in [facility] Patient discharged from there because she was ready to go home. Patient currently resides at home w/ her friend Kemar. Per the patient Kemar is not home at this time but will return tomorrow. Patient is not interested in returning to LTC at this time. Patient prefers to return home where she can use her rolling walker and wheelchair to complete ADL's at home. Patient was able to ambulate around the room w/ a rolling walker. Patient is irritated stating that she feels she is being held hostage in the ED. Patient is alert and oriented and ready to return home. ED staff w/ reach out to EMS regarding transport home. I also updated patient that there are not currently any home health agencies that accept her insurance at this time. Patient stated no further needs/questions at this time. Patient will discharge home from ER via ambulance vs [facility].
--- NOTE | 2025-02-02 08:30 | PC.NURSE ---
pt informed of her option to go back home by EMS but that it would cost her approx $800. pt stated ill pay anything to get out pf this place this nurse apologized for her current situation. pt stated she was agreeable to payment. EMS notified
--- NOTE | 2025-02-02 08:57 | PC.NURSE ---
EMS called for transport home advised they would be up here shortly
[2025-02-02 09:04] VITALS: BP 100/60; PULSE 82; RESP 16; TEMP 36.7; O2SAT 97
== END 2025-02-02 09:22 | disposition home or self-care (01) ==
PROVIDERS: Emergency Provider Emergency Medicine
DX: M54.50 Low back pain, unspecified (principal); M25.572 Pain in left ankle and joints of left foot; E11.9 Type 2 diabetes mellitus without complications; W19.XXXA Unspecified fall, initial encounter
CPT/HCPCS: 70450; 72125; 72128; 72131; 73610; 96372; 99285; J1885

== ENCOUNTER 2025-03-18 23:21 | Observation (INO) | payer MEDICAID, SELFPAY ==
--- OUTSIDE RECORDS SUMMARY | 2024-04-09 09:45 | XMS_ITS ---
Author Organization [facility] Billing Info Address [address] [place] [address] Phone [phone] Care Team Providers Care Vendor Representatives Name Role Phone Yung Colón Primary Care Provider Yimi SHARMA MD, ROSINA Unavailable REASON FOR VISIT robotic apolonia/umbilical hernia repair/abd mass excision Social History Sex Observation Social History Observation Description Sex Observation Female Sexual Orientation Social History Observation Description Sexual Orientation Straight or heterose xual Gender Identity Social History Observation Description Gender Identity Male Female Encounters Date Time Type Facility Location Provider Diagnosis 5 08:45 AM Office Visit [id number] [address] [place] [address] ROSINA SHARMA Calculus of gallbladder with chronic cholecystitis without obstruction K80.10 ; Umbilical hernia with obstruction, without gangrene K42.0 ; Intra-abdominal and pelvic swelling, mass and lump, unspecified site R19.00 and 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 Assessments Encounter Date Diagnosis (ICD Code) Assessment Notes Treat ment Notes Section Notes 04/09/2024 Calculus of gallblad jonelle with chronic cholecystitis without obstruction (ICD-10 - K80.10) 04/09/2024 Umbilical hernia wit h obstruction, without gangrene (ICD-10 - K42.0) 04/09/2024 Intra-abdominal and pelvic swelling, mass and lump, unspecified site (ICD-10 - R19.00) 04/09/2024 Sclerosing mesenteri tis (ICD-10 - K65.4) Plan Of Treatment No Information Medical (General) History Medical History History ICD Code asthma Arthritis Depression Diabetes mellitus Hepatitis Emphysema Clotting disorder Surgical History Surgery Date(Month/Year) cholecystectomy, laparoscopic 04/09/2024 hernia repair 04/09/2024 back surgery Hospitalization History Reason Date(Month/Year) see sx hx Progress Notes * Eryn HARO LDOB: 8 (49 yo F)Acc No.[id number]:04/09/2024 PROGRESS NOTE Patient: Eryn SMALL Provider: Amandeep SHARMA MD :1975 A ge:48 Y S ex:Female Date:04/09/2024 [facility]#:[id number] Address:[address] [place], [place] [id number] Pcp:Yung Colón Subjective: * Chief Complaints: * [...] * Treatment: * Procedure Codes: 4 7562 15902, 04533 EXCISION TUMOR SOFT TISSUE ABD WALL 3CM OR GREATER, TthNo: 51, Srfc: , Modifiers: 51 , S2900 ROBOTIC SURGICAL SYSTEM * * This progress note has not b een verified nor is it considered complete until locked and signed by the provider. Sign off status: Pending * Provider: Amandeep SHARMA MD Date: 0 04/09/2024 Generated for Marlenei ng/Fafernandog/eTransmitting on: 1 05/19/2024 10:27 PM CRITICAL CARE NURSE PRACTITIONER
[2025-03-18 23:24] VITALS: BP 116/56; PULSE 87; O2SAT 96
--- OUTSIDE RECORDS SUMMARY | 2025-03-18 23:27 | XMS_ITS | Patient Health Record ---
Author Organization [facility] Address [address] [place] [address] Care Team Providers Care Felt Finisher Name Role Phone Sarah Arzate [phone] ALLERGIES No Known Allergies REASON FOR REFERRAL [...] Code Notes Problem Depression (F32.9) Active confirmed 03595805 Problem Anxiety (F41.9) Active confirmed 697797 02 Problem Chronic pain (G89.29) Active confirmed 46213376 Problem Dyslipidemia (E78.5) Active confirmed 998232736 Problem Diabetes (E11.9) Active confirmed 28699 009 Problem Asthma (J45.909) Active confirmed 88335 7001 Problem Essential hypertension (I10) Active confirmed 23886780 Problem BMI 37.0-37.9, adult (Z68.37) Active confirmed 970746452 Problem Hepatitis C virus infection without hepatic coma, unspecified chronicity (B19.20) Active confirmed 68341370 Problem Bipolar I disorder (F31.9) Active confirmed 005491729 Problem Chronic obstructive pulmonary disease (COPD) (J44.9) Active confirmed 28715892 Problem Tobacco use disorder (F17.200) Active confirmed 920786241 PLAN OF TREATMENT No Information Insurance Providers Payer Name Payer Address Payer Phone Subscriber Number Group Number Insured Name Patient Relationship to Insured Coverage Start Date Coverage End Date [facility] [employer] [place] [employer] [address] [place] [phone] [id number] Eryn Poon Self - patient is the insured [employer] Medicaid [address] [place] [address] [id number] Eryn Poon Self - patient is the [...]
--- OUTSIDE RECORDS SUMMARY | 2025-03-18 23:27 | XMS_ITS | Patient Health Record ---
Author Organization [facility] Augie ramos Billing Info Address [address] [place] [id number] Phone [phone] Care Team Providers Care Gear Finisher Name Role Phone Katarzyna, Yung Primary Care Provider Yimi ZHANG MD, ROSINA Arrington Allergies No Known Allergies Results Component Value Reference Range Flag Notes A1C HEMOGLOBIN([facility]-A1C) Order date: 04/05/2024 Reviewed date:04/06/2024 08:52:16 AM Interpretation: Performing Lab:ML, [facility] [id number] JASON MEJÍA [id number] Notes/Report: HEMOGLOBIN A1C 5.8 4.2-6.3 % If: Hemoglobin is less than 5.0g/dl If: Total Hemoglobin A1C is less than 0.3 g/dl Then: Hemoglobin A1C % cannot be calculated. Note Ordering Provider: Rosina Zhang CBC WITH PLATELETS(GV-CBCP ) Order date: 04/05/2024 Reviewed date:04/06/2024 08:52:29 AM Interpretation: Performing Lab:[facility] [id number] JASON MEJÍA [id number] Notes/Report: WHITE BLOOD CELL 9.1 4.5-11.0 K/UL RED BLOOD CELL 3.59 4.20-5.40 M/dL L HEMOGLOBIN 10.5 12.0-16.0 G/DL L HEMATOCRIT 32.3 37.0-47.0 % L MEAN CELL VOLUME 90 78-98 fL MEAN CELL HGB 29.2 26.1-33.9 PG MEAN CELL HGB CONCENTRATION 32.5 32.4-35.8 % RED CELL DISTRIBUTION WIDTH 14.3 11.0-15.0 % PLATELET COUNT 121 145-412 K/uL L MEAN PLATELET VOLUME 11.5 7.0-12.0 fL Note Ordering Provider: Rosina Zhang COMPREHENSIVE METABOLIC PROF (GV-CMP) Order date: 04/05/2024 Reviewed date:04/06/2024 08:52:20 AM Interpretation: Performing Lab:[facility] [id number] JASON JULIET MEJÍA [id number] Notes/Report: The Glomerular Filtration Rate is a [...] 27.0 21.0-32.0 mmol/L GLUCOSE 112 74-106 mg/dL H BLOOD UREA NITROGEN 28 7-20 mg/dl H CREATININE 1.6 0.6-1.3 mg/dl H TOTAL PROTEIN 7.9 6.3-8.2 G/DL ALBUMIN 2.8 3.5-5.0 g/dl L CALCIUM 8.4 8.5-10.1 mg/dl L CORRECTED CALCIUM 9.4 9.0-10.1 mg/dl BILIRUBIN TOTAL 0.5 0.2-1.0 mg/dl AST (SGOT) 22.0 15.0-37.0 U/L ALT (SGPT) 19 13-56 U/L ALKALINE PHOSPHATASE 115 50-136 U/L Note Ordering Provider: Rosina Zhang ANION GAP 6.0 4-14 GFR CKD-EPI 2020 40 L HCG SERUM QUAL([facility]-HCGQL) Order date: 04/05/2024 Reviewed date:04/06/2024 08:52:27 AM Interpretation: Performing Lab:[facility] [id number] JASON MEJÍA [id number] Notes/Report: HCG SERUM QUAL NEG NEGATIVE THIS [...] A LOW SPECIFIC GRAVITY, MAY NOT CONTAIN SCHOLASTIC APTITUDE TEST GRADER LEVELS OF HCG. IF IS STILL SUSPECTED, A FIRST MORNING URINE SPECIMEN SHOULD BE COLLECTED 48 HOURS LATER AND TESTED. FOR URINE AND SERUM MAY TEST WEAKLY POSITIVE. THESE ARE REPORTED INCONCLUSIVE AND SHOULD BE REPEATED IN 48 HOURS. IN CERTAIN CIRCUMSTANCES A QUANTITATIVE BETA HCG MAY BE WARRANTED. Note Ordering Provider: Rosina Zhang GLUCOSE (POINT OF CARE)([facility] -POCGLU) Order date: 04/09/2024 Reviewed date:04/09/2024 02:45:49 PM Interpretation: Performing Lab:POC, POINT OF CARE [id number] JASON MEJÍA [id number] Notes/Report: Jazz Musician ID: [id number] GLUCOSE (POINT OF CARE) 99 70-110 mg/dL Note Ordering Provider: Rosina Zhang GLUCOSE (POINT OF CARE)([facility] -POCGLU) Order date: 04/09/2024 Reviewed date:04/09/2024 02:45:41 PM Interpretation: Performing Lab:POC, POINT OF CARE [id number] JASON MEJÍA [id number] Notes/Report: Jazz Musician ID: [id number] GLUCOSE (POINT OF CARE) 127 70-110 mg/dL H Note Ordering Provider: Rosina Zhang GLUCOSE (POINT OF CARE)([facility] -POCGLU) Order date: 04/09/2024 Reviewed date:04/09/2024 02:45:39 PM Interpretation: Performing Lab:POC, POINT OF CARE [id number] JASON MEJÍA [id number] Notes/Report: Jazz Musician ID: [id number] GLUCOSE (POINT OF CARE) 171 70-110 mg/dL H Note Ordering Provider: Rosina Zhang PROTHROMBIN TIME([facility]-PT) Order date: 04/05/2024 Reviewed date:04/06/2024 08:52:25 AM Interpretation: Performing Lab: [facility] [id number] JASON JULIET MEJÍA [id number] Notes/Report: PROTHROMBIN TIME PATIENT 12.1 9.4-12.5 SECS [...] Ordering Provider: Rosina Zhang PARTIAL THROMBOPLASTIN TIME( [facility]-PTT) Order date: 04/05/2024 Reviewed date:04/06/2024 08:52:23 AM Interpretation: Performing Lab: [facility] [id number] JASON JULIET MEJÍA [id number] Notes/Report: PTT PATIENT 24.6 25.1-36.5 SECS L PTT Thera peutic Range: 49.9 - 81.2 sec Note Ordering Provider: Rosina Zhang UA NO REFLEX CULTURE([facility]-UA NR) Order date: 04/05/2024 Reviewed date:04/06/2024 08:59:54 AM Interpretation: Performing Lab: [facility] [id number] JASON MEJÍA [id number] Notes/Report: Note Ordering Provider: Rosina Zhang UA COLOR Light [place] Yellow A UA APPEARANCE Turbid Clear UA SPECIFIC GRAVITY 1.011 1.001-1.035 UA PH DIPSTICK 5.5 5.0-8.5 UA LEUKOCYTE ESTERASE DIPSTICK 500 (Large 3+) Negative WBC/uL A UA NITRITE DIPSTICK Positive Negative A UA PROTEIN DIPSTICK 20 (Trace) Negative mg/dL A UA GLUCOSE DIPSTICK Negative Negative mg/dL UA KETONE DIPSTICK Negative Negative mg/dL UA UROBILINOGEN DIPSTICK Normal Normal MG/DL UA BILIRUBIN DIPSTICK Negative Negative MG/DL UA BLOOD DIPSTICK 0.06 (1+) Negative mg/dL A UA MICROSCOPIC([facility]-UAM) Order date: 04/05/2024 Reviewed date:04/06/2024 08:59:47 AM Interpretation: Performing Lab:[facility] [id number] [facility] [id number] Notes/Report: Note Ordering Provider: Rosina Zhang UA RBC 0-2 0-2 /HPF UA WBC >100 0-5 /HPF A UA EPITHELIAL CELLS 0-5 SQUAM UA BACTERIA 4+ NONE /HPF A UA AMORPHOUS SEDIMENT 1+ NONE /HPF Reason For Referral Addressed Referral details can be found under 'Consultation Request Notes' section Medications Medication SIG (Take, Route, Frequency, Duration) Notes Start Date End Date Diagnosis (ICD Code) Status Furosemide 20 MG Tablet Oral; Duration: 30 Days Active Venlafaxine HCl ER 75 MG Capsule Extended Release 24 Hour Oral; Duration: 30 Days Active Clonidine HCl 0.1 MG Tablet Oral; Duration: 30 Days Active Gabapentin 800 MG Tablet Oral; Duration: 30 Days Active Benzonatate 100 MG Capsule TAKE 1 CAPSULE BY MOUTH EVERY 8 HOURS NEEDED FOR COUGH Oral; Duration: 7 Days Active Cyclobenzaprine HCl 5 MG Tablet Oral; Duration: 30 Days Active Meloxicam 15 MG Tablet Oral; Duration: 30 Days Active Potassium Chloride ER 10 MEQ Tablet Extended Release Oral; Duration: 30 Days Active Social History Tobacco Use: Social History Observation Description Date Details (start date - stop date) Former Smoker NA - NA Sex Observation Social History Observation Description Sex Observation Female Sexual Orientation Social History Observation Description Sexual Orientation Straight or heterose xual Gender Identity Social History Observation Description Gender Identity Male Female Social History Social History Social Info Question Answer Notes Tobacco Status: Patient is a former smoker Alcohol Use: Patient does not use alcohol Vital Signs Vital Sign Value Notes Appt Date Heart Rate 78 /min 05/03/2024 Temperature 97.5 degrees Fahrenheit 04/24 Oximetry 98 05/03/2024 Blood pressure diastolic 78 mm Hg 12/2024 Height 66 in 05/03/2024 Blood pressure systolic 118 mm Hg 04/24 Weight 270 lbs 05/03/2024 BMI 43.57 kg/m2 05/03/2024 Encounters Date Time Type Facility Location Provider Diagnosis 5 01:15 PM OFFICE/OUTP ATIENT VISIT NEW ([id number]) [id number] [facility] [address] [place] [address] ROSINA ZHANG Dietary counseling and surveillance Z71.3 ; Symptomatic cholelithiasis K80.20 ; Severe obesity (BMI >= 40) E66.01 ; Umbilical hernia K42.9 and Abdominal wall mass R19.00 5 01:30 PM Postop visit ([id number]) [id number] [facility] [address] [facility] [address] [place] [address] ROSINA ZHANG Dietary counseling and surveillance Z71.3 ; Postop check Z09 and Severe obesity (BMI >= 40) E66.01 5 08:45 AM [id number] [address] [facility] [place] [address] ROSINA ZHANG Calculus of gallbladder with chronic cholecystitis without obstruction K80.10 ; Umbilical hernia with obstruction, without gangrene K42.0 ; Intra-abdominal and pelvic swelling, mass and lump, unspecified site R19.00 and 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
[2025-03-18 23:28] VITALS: BP 116/56; PULSE 86; RESP 22; TEMP 37.1; O2SAT 95; BMI 72.6
--- NOTE | 2025-03-18 23:29 | CT_ITS ---
PROCEDURE INFORMATION: Exam: CT Head Without Contrast Exam date and time: 03/19/2025 1:08 AM Age: 49 years old Clinical indication: Injury or trauma; Additional info: Fall at home TECHNIQUE: Imaging protocol: Computed tomography of the head without contrast. Radiation optimization: All CT scans at this facility use at least one of these dose optimization techniques: automated exposure control; mA and/or kV adjustment per patient size (includes targeted exams where dose is matched to clinical indication); or iterative reconstruction. COMPARISON: CT HEAD/BRAIN WO CON 02/01/2025 11:50 PM FINDINGS: Brain: No acute intracranial hemorrhage. No abnormal extra-axial fluid collection. No midline shift or mass effect. No cerebral edema. Cerebral ventricles: No ventriculomegaly. Paranasal sinuses: No air-fluid levels. Mastoid air cells: Visualized mastoid air cells are clear. Orbital cavities: No acute intraorbital abnormality. Globes are intact and symmetric. Bones: No acute fracture. Soft tissues: Unremarkable. IMPRESSION: No acute intracranial abnormality.
--- NOTE | 2025-03-18 23:29 | XR_ITS ---
PROCEDURE INFORMATION: Exam: XR Left Tibia and Fibula Exam date and time: 03/19/2025 1:21 AM Age: 49 years old Clinical indication: Injury or trauma; Fall; Blunt trauma; Lower leg; Bilateral; Additional info: Fall, pain everywhere in the legs TECHNIQUE: Imaging protocol: Radiologic exam of the left tibia and fibula. Views: 2 views. COMPARISON: CR XR ANKLE LT MIN 3V 02/01/2025 11:44 PM FINDINGS: Bones/joints: No acute fracture or dislocation identified. 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 Stable chronic changes from previous fracture fixation in the left distal fibula. Hohmalwy-ah-grycgq degenerative changes in the left knee. Soft tissues: No acute abnormality identified. IMPRESSION: 1. No acute fracture or dislocation identified. 2. 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 3. Stable chronic changes from previous fracture fixation in the left distal fibula.
--- NOTE | 2025-03-18 23:29 | XR_ITS ---
PROCEDURE INFORMATION: Exam: XR Right Tibia and Fibula Exam date and time: 03/19/2025 1:21 AM Age: 49 years old Clinical indication: Injury or trauma; Fall; Blunt trauma; Lower leg; Bilateral; Additional info: Fall, pain everywhere in the legs TECHNIQUE: Imaging protocol: Radiologic exam of the right tibia and fibula. Views: 2 views. COMPARISON: No relevant prior studies available. FINDINGS: Bones/joints: No definite fracture or dislocation. Suggestion of hbjo-ek-hezqawdo degenerative changes in the right ankle. Soft tissues: Normal. IMPRESSION: 1. No definite fracture or dislocation. 2. Suggestion of kkvh-ui-ptibkrry degenerative changes in the right ankle.
--- NOTE | 2025-03-18 23:29 | XR_ITS ---
PROCEDURE INFORMATION: Exam: XR Right Femur Exam date and time: 03/19/2025 1:21 AM Age: 49 years old Clinical indication: Injury or trauma; Fall; Blunt trauma; Lower leg; Bilateral; Additional info: Fall, pain everywhere in the legs TECHNIQUE: Imaging protocol: Radiologic exam of the right femur. Views: 2 views. COMPARISON: 1. CT ABDOMEN PELVIS W CON 12/10/2024 5:03 PM 2. CR XR PELVIS 1-2V 03/19/2025 1:21 AM FINDINGS: Limitations: Evaluation limited by patient body habitus. Bones/joints: Right hip suboptimally seen due to body habitus. No visualized fracture or dislocation. Soft tissues: No acute abnormality. IMPRESSION: 1. Evaluation limited by patient body habitus. 2. Right hip suboptimally seen due to body habitus. 3. No visualized fracture or dislocation. 4. If there is persistent clinical concern for occult fracture, consider further evaluation with cross-sectional imaging.
--- NOTE | 2025-03-18 23:29 | CT_ITS ---
PROCEDURE INFORMATION: Exam: CT Cervical Spine Without Contrast Exam date and time: 03/19/2025 1:17 AM Age: 49 years old Clinical indication: Injury or trauma; Additional info: Fall TECHNIQUE: Imaging protocol: Computed tomography of the cervical spine without contrast. Radiation optimization: All CT scans at this facility use at least one of these dose optimization techniques: automated exposure control; mA and/or kV adjustment per patient size (includes targeted exams where dose is matched to clinical indication); or iterative reconstruction. COMPARISON: CT CERVICAL SPINE WO CON 02/01/2025 11:52 PM FINDINGS: Limitations: Evaluation limited by patient body habitus. Bones: Straightening of the cervical spine. No acute fracture. Mild chronic degenerative changes. Limited visualization of the spinal canal secondary to body habitus, but no severe spinal stenosis appreciated. Lungs: Visualized lung apices are clear. Soft tissues: Visualized paravertebral soft tissues demonstrate no acute abnormality. IMPRESSION: 1. Evaluation limited by patient body habitus. 2. No acute findings.
--- NOTE | 2025-03-18 23:29 | XR_ITS ---
PROCEDURE INFORMATION: Exam: XR Pelvis Exam date and time: 03/19/2025 1:21 AM Age: 49 years old Clinical indication: Injury or trauma; Fall; Blunt trauma (contusions or hematomas); Bilateral; Pelvic region TECHNIQUE: Imaging protocol: Radiologic exam of the pelvis. Views: 1 or 2 view. COMPARISON: CT ABDOMEN PELVIS W CON 12/10/2024 5:03 PM FINDINGS: Limitations: Evaluation limited by patient body habitus. Bones/joints: No obvious fracture or dislocation. Soft tissues: Unremarkable. IMPRESSION: 1. Evaluation limited by patient body habitus. 2. No obvious fracture or dislocation. 3. If there is persistent clinical concern for occult fracture, consider further evaluation with cross-sectional imaging.
--- NOTE | 2025-03-18 23:29 | XR_ITS ---
PROCEDURE INFORMATION: Exam: XR Left Femur Exam date and time: 03/19/2025 1:21 AM Age: 49 years old Clinical indication: Injury or trauma; Fall; Blunt trauma; Thigh or upper leg; Bilateral; Additional info: Fall, pain everywhere in the legs TECHNIQUE: Imaging protocol: Radiologic exam of the left femur. Views: 2 views. COMPARISON: CT ABDOMEN PELVIS W CON 12/10/2024 5:03 PM FINDINGS: Limitations: Evaluation limited by patient body habitus. Bones/joints: Left hip suboptimally seen due to patient body habitus. No fracture or dislocation visualized. Prominent degenerative changes in the left knee. Soft tissues: No acute abnormality. IMPRESSION: 1. Evaluation limited by patient body habitus. 2. Left hip suboptimally seen due to patient body habitus. 3. No fracture or dislocation visualized. 4. If there is persistent clinical concern for occult fracture, consider further evaluation with cross-sectional imaging.
--- NOTE | 2025-03-18 23:29 | XR_ITS ---
PROCEDURE INFORMATION: Exam: XR Chest Exam date and time: 03/19/2025 1:21 AM Age: 49 years old Clinical indication: Injury or trauma; Fall; Blunt trauma (contusions or hematomas); Additional info: Fall at home multiple hours ago TECHNIQUE: Imaging protocol: Radiologic exam of the chest. Views: 1 view. COMPARISON: CR XR CHEST PORTABLE 12/10/2024 5:04 PM FINDINGS: Limitations: Evaluation limited by patient body habitus. Lungs: No consolidation, mass, or pulmonary edema. Pleural spaces: No definite pneumothorax or pleural effusion appreciated on this portable supine exam. Heart/Mediastinum: Cardiomediastinal silhouette is stable. Bones/joints: No acute osseous abnormality. IMPRESSION: 1. Evaluation limited by patient body habitus. 2. No acute findings.
[2025-03-18 23:46] VITALS: BP 135/83; PULSE 86; O2SAT 95
[2025-03-19] VITALS (8 sets, daily range): BP systolic 110–133; BP diastolic 52–89; PULSE 82–86; RESP 16–20; TEMP 36.7–37.2; O2SAT 91–98; BMI 72.3
[2025-03-19 00:40] LABS: Hematocrit 39.2 % (37.0-47.0); Hemoglobin 12.4 g/dL (12.2-16.2); Immature Granulocytes % 0.4 %; Mean Corpuscular HGB Conc 31.6 g/dL (31.8-35.4); Mean Corpuscular Hemoglobin 29.9 pg (27.0-31.2); Mean Corpuscular Volume 94.5 fl (81-99); Nucleated Red Blood Cells % 0 %; Platelet Count 107 K/mm3 (142-424); Red Blood Count 4.15 M/mm3 (4.20-5.40); Red Cell Distribution Width-SD 48.8 fL; White Blood Count 7.7 K/mm3 (4.8-10.8)
--- NOTE | 2025-03-19 00:41 | ED_ITS ---
Discharge Plan Disposition Patient Disposition: Admitted Condition: Good Prescriptions Prescriptions: No Action furosemide [Lasix] 20 mg tablet 20 mg PO BID PRN (Reason: edema) Qty: 60 4RF potassium chloride 10 mEq capsule, extended release 10 meq PO BID clonidine HCl 0.1 mg tablet 0.1 mg PO TID cetirizine 10 mg tablet 10 mg PO DAILY meloxicam 15 mg tablet 15 mg PO DAILY omeprazole 40 mg capsule,delayed release(DR/EC) 40 mg PO DAILY acetaminophen 650 mg tablet extended release 650 mg PO Q4H PRN zinc sulfate 50 mg zinc (220 mg) tablet 50 mg PO DAILY ascorbic acid (vitamin C) [Vitamin C] 500 mg tablet 500 mg PO BID selenium sulfide 1 % shampoo 1 applic topical 2XW Rx Instructions: massage into affected area; leave on for 10 mins ; rinse off thoroughly insulin lispro 100 unit/mL insulin pen 1 sliding scale dose SQ QID lactulose 10 gram/15 mL solution 30 g PO DAILY insulin glargine [Lantus Solostar U-100 Insulin] 100 unit/mL (3 mL) insulin pen 20 unit SQ DAILY Certavite-Antioxidant 18-400 mg-mcg tablet 1 tab PO DAILY sofosbuvir-velpatasvir 400-100 mg tablet 1 tab PO DAILY venlafaxine 150 mg capsule,extended release 24hr 150 mg PO DAILY Qty: 30 2RF doxepin 100 mg capsule 100 mg PO HS Qty: 30 0RF (DME) 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 Misc See Rx Instructions .Route Qty: 1 0RF Rx Instructions: As directed alprazolam [Xanax] 1 mg tablet 1 mg PO TID PRN (Reason: anxiety) Qty: 90 0RF gabapentin 800 mg tablet See Rx Instructions .ROUTE .COMPLEX Qty: 90 1RF Dose Instruction: TAKE ONE TABLET BY MOUTH THREE TIMES DAILY MAY CAUSE DROWSINESS Rx Instructions: TAKE ONE TABLET BY MOUTH THREE TIMES DAILY MAY CAUSE DROWSINESS Ozempic 1 mg/dose (4 mg/3 mL) pen injector 1 mg SQ Q7D Qty: 9 11RF (DME) lancets [FreeStyle Lancets] 28 gauge misc See Rx Instructions .ROUTE .COMPLEX Qty: 300 11RF Dose Instruction: USE THREE TIMES A DAY *NEW PRESCRIPTION REQUEST* Rx Instructions: USE THREE TIMES A DAY *NEW PRESCRIPTION REQUEST* (DME) Dexcom G7 Sensor Device See Rx Instructions .ROUTE .COMPLEX Qty: 9 10RF Dose Instruction: USE DIRECTED TO TEST BLOOD GLUCOSE LEVEL CHANGE SENSOR EVERY 10 DAYS *NEW PRESCRIPTION REQUEST* Rx Instructions: USE DIRECTED TO TEST BLOOD GLUCOSE LEVEL CHANGE SENSOR EVERY 10 DAYS *NEW PRESCRIPTION REQUEST* (DME) FreeStyle Lite Strips Strip See Rx Instructions .ROUTE .COMPLEX Qty: 300 10RF Dose Instruction: USE DIRECTED TO TEST BLOOD SUGAR THREE TIMES A DAY *NEW PRESCRIPTION REQUEST* Rx Instructions: USE DIRECTED TO TEST BLOOD SUGAR THREE TIMES A DAY *NEW PRESCRIPTION REQUEST* (DME) 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 meter [FreeStyle Lite Meter] Kit See Rx Instructions .ROUTE .COMPLEX Qty: 1 10RF Dose Instruction: USE DIRECTED TO TEST BLOOD SUGAR *NEW PRESCRIPTION REQUEST* Rx Instructions: USE DIRECTED TO TEST BLOOD SUGAR *NEW PRESCRIPTION REQUEST* (DME) pen needle, diabetic [Ultra-Fine Pen Needle] 31 gauge x 5/16 needle See Rx Instructions .ROUTE .COMPLEX Qty: 100 10RF Dose Instruction: USE DIRECTED 3-4 TIMES DAILY *NEW PRESCRIPTION REQUEST* Rx Instructions: USE DIRECTED 3-4 TIMES DAILY *NEW PRESCRIPTION REQUEST* ondansetron HCl 4 mg tablet 4 mg PO Q8H PRN (Reason: nausea and vomiting) 5 Days Qty: 20 0RF Referrals Follow up/Referrals: Jacqueline Krueger APRN [Primary Care Provider, Behavioral Health] - See instructions Clinical Impressions Clinical Impression: Debility, Fall Print Language Print Language: Ethiopian Discharge ED Provider: Zaria Quevedo General Adult HPI General Chief complaint: PAIN Stated complaint: Fall Time Seen by Provider: 03/18/25 23:25 Mode of Arrival: EMS Source of Information: Patient and EMS Description of Symptoms (Recalled from ER Triage Doc. by RN): Pt presents following a fall an hour ago in her bathroom. Pt states she drug herself to the living room after the fall and is now experiencing bilateral leg pain. History of Present Illness HPI narrative: 49-year-old female with history of significant obesity, type 2 diabetes, pre- existing wound of the left ankle which she reports has been there for 8 months as well as degenerative disc disease, CKD, GERD presents to the ER via EMS after a fall. Upon further discussion with the patient, though she initially reported she fell not that long ago, it turns out she actually fell quite a bit earlier in the day in the bathroom because she tried to get off the toilet and pulled the handicap bar out of the wall. She states she was able to crawl to her couch and stayed there but the pain in my legs got so bad I called 911 . Patient reports no numbness, tingling, or new weakness. She uses a wheelchair to get around in her house but is able to reportedly transfer independently. Patient states she currently is not able to shower because her shower chair broke. According to EMS she lives in a home with multiple stairs both getting into the house and throughout the house. Patient states she lives by herself and attempts to care for herself independently, someone occasionally comes to check on her but on further discussion this is just the landlord's . Patient reports she did strike her head but denies loss of consciousness. She does not take any blood thinners. She denies any neck pain or back pain. No difficulty breathing, no chest pain, no abdominal pain, no nausea, vomiting, or diarrhea however patient did soil herself prior to arrival in the ER. Related Data Home Medications ?Medication ?Instructions ?Recorded ?Confirmed acetaminophen 650 mg 650 mg PO Q4H PRN 11/18/24 1 03/29/24 tablet,extended release ascorbic acid (vitamin C) 500 mg 500 mg PO BID 5 01/27/25 tablet (Vitamin C) cetirizine 10 mg tablet 10 mg PO DAILY 11/18/2409/15 clonidine HCl 0.1 mg tablet 0.1 mg PO TID 11/18/2409/15 insulin glargine 100 unit/mL (3 20 unit SQ DAILY 11/1801/27/25 mL) subcutaneous pen (Lantus Solostar U-100 Insulin) insulin lispro 100 unit/mL 1 sliding scale dose SQ QID 11/18/24 01/27/25 subcutaneous pen lactulose 10 gram/15 mL oral 30 g PO DAILY 11/18/24 solution meloxicam 15 mg tablet 15 mg PO DAILY 11/18/2409/15 multivitamin-ferrous 1 tab PO DAILY 11/18/2409/15 fumarate-folic acid 18 mg-400 mcg tablet (Certavite-Antioxidant) omeprazole 40 mg capsule,delayed 40 mg PO DAILY 01/27/25 release potassium chloride 10 mEq 10 meq PO BID 11/18/2401/27 capsule,extended release selenium sulfide 1 % shampoo 1 applic topical 2XW 10/2301/27/25 sofosbuvir 400 mg-velpatasvir 100 1 tab PO DAILY 11/1801/27/25 mg tablet zinc sulfate 50 mg zinc (220 mg) 50 mg PO DAILY 01/27/25 tablet Previous Rx's ?Medication ?Instructions ?Recorded furosemide 20 mg tablet (Lasix) 20 mg PO BID PRN edema #60 tabs 11/18/24 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,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,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 #1 ea 12/07/24 (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) ondansetron HCl 4 mg tablet 4 mg PO Q8H PRN nausea and 12/10/24 vomiting 5 days #20 tabs doxepin 100 mg capsule 100 mg PO HS #30 caps venlafaxine 150 mg 150 mg PO DAILY #30 caps 06/15 capsule,extended release 24 hr alprazolam 1 mg tablet (Xanax) 1 mg PO TID PRN anxiety #90 tabs 02/24/25 gabapentin 800 mg tablet See Rx Instructions .Route 1 05/10/24 .COMPLEX #90 tabs lancets 28 gauge (FreeStyle #300 ea 03/10/25 Lancets) semaglutide 1 mg/dose (4 mg/3 mL) 1 mg (0.75 mL) SQ Q7 D #9 mL 03/10/25 subcutaneous pen injector ([employer]) blood sugar diagnostic (FreeStyle #300 strips 03/15/25 Lite Strips) 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 meter (FreeStyle #1 kit 03/15/25 Lite Meter kit) 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 sensor (Dexcom G7 #9 ea 03/15/25 Sensor device) pen needle, diabetic 31 gauge x #100 ea 03/15/2508/06 (Ultra-Fine Pen Needle) Allergies Allergy/AdvReac Type Severity Reaction Status Date / Time No Known Allergies Allergy Verified 01/27/25 13:22 [facility] Disclaimer: The information contained in this section may have been updated after the patient was seen, as this information can be updated by other users. Medical History Umbilical hernia Adjustment disorder with mixed anxiety and depressed mood Atelectasis Bipolar disorder, unspecified Calculus of gallbladder with acute cholecystitis without obstruction Dependence on wheelchair Edema, unspecified Fatty (change of) liver, not elsewhere classified Gastro-esophageal reflux disease without esophagitis Acute low back pain due to spinal disorder Morbid (severe) obesity due to excess calories Other stimulant dependence, uncomplicated Generalized polyneuropathy Chronic kidney disease due to diabetes mellitus Unspecified open wound, left ankle, subsequent encounter Presence of IVC filter Hypertension DDD (degenerative disc disease), thoracic DDD (degenerative disc disease), lumbar DDD (degenerative disc disease), cervical Surgical History H/O hernia repair H/O toe surgery History of colonoscopy [place] teeth extracted Hx of cholecystectomy History of ankle surgery History of back surgery Social History Smoking Status: Current every day smoker tobacco type: cigarettes packs per day: 2 and e-cigarettes smoking status start date: 1990 how long ago did patient quit smokin alcohol intake: never substance use type: former substance user and methamphetamine current occupational status: disabled Travel in the last 8 weeks?: None Other Medical History Have you received the Pneumonia Vaccine: Yes ([id number]) ROS Obtained: Yes Systems reviewed as appropriate & no additional complaints except as documented per HPI Physical Exam General General appearance: alert, in no apparent distress and obese Head Head exam: normocephalic and other (Small superficial scalp hematoma on posterior scalp with no overlying abrasion, laceration, no underlying deformity or crepitus) Eye Eye exam: Present PERRL and EOMI; Absent nystagmus ENT ENT exam: Present mucous membranes moist Neck Neck exam: Present normal inspection and full ROM; Absent tenderness Chest Chest inspection: Present symmetric chest wall rise; Absent tenderness Respiratory Respiratory exam: Present normal lung sounds bilaterally; Absent respiratory distress, wheezes or stridor Cardiovascular Cardiovascular exam: Present regular rate and normal rhythm Abdominal Exam Abdominal exam: Present soft; Absent distention, tenderness, guarding or rebound External exam: Present normal external exam Extremities Exam Extremities exam: Present full ROM, normal capillary refill and other (wound of the lateral aspect of the left ankle appears old with granulation tissue present. No evidence of infection. Neurovascularly intact throughout.); Absent edema or joint swelling Neurological Exam Neurological exam: Present alert and oriented X3; Absent motor sensory deficit Psychiatric Psychiatric exam: Present normal affect and normal mood Skin Skin exam: Present warm and dry Medical Decision Making Medical Records Medical records reviewed: Yes I reviewed the patient's medical records. Screening: Per USPSTF and CDC recommendations, given the prevalence of disease in our region, it is our hospital?s policy to screen for HIV and viral Hepatitis for all patients aged 18 and over and those with ongoing risk factors. Adalid Inquiry Pt receiving controlled substance: No Vital Signs: 03/18/25 23:24 03/18/25 23:28 03/18/25 23:46 Temperature 98.7 F Temperature Source Oral Pulse Rate 87 86 Pulse Rate [Right] 86 Respiratory Rate 22 Blood Pressure 116/56 L 135/83 Blood Pressure [Right Arm] 116/56 L Blood Pressure Mean Blood Pressure Mean [Right Arm] 76 Blood Pressure Source [Right Arm] Automatic Cuff Blood Pressure Position [Right Arm] Sitting 02 Sat by Pulse Oximetry 96 95 95 Oxygen Delivery Method Room Air 03/19/25 00:23 03/19/25 01:00 Temperature Temperature Source Pulse Rate 85 Pulse Rate [Right] Respiratory Rate Blood Pressure 121/65 126/64 Blood Pressure [Right Arm] Blood Pressure Mean 86 Blood Pressure Mean [Right Arm] Blood Pressure Source [Right Arm] Blood Pressure Position [Right Arm] 02 Sat by Pulse Oximetry 95 Oxygen Delivery Method Lab Data Lab Results 03/19/25 00:26: WBC 7.7, RBC 4.15 L, Hgb 12.4, Hct 39.2, MCV 94.5, MCH 29.9, M CHC 31.6 L, RDW 14.5, Plt Count 107 L, MPV 10.3, Neut % (Auto) 70.5, Lymph % (Auto) 17.5, [place] % (Auto) 9.1, Eos % (Auto) 1.6, Baso % (Auto) 0.9, Neut # (Auto) 5.4, Lymph # (Auto) 1.3, [place] # (Auto) 0.7, Eos # (Auto) 0.1, Baso # (Auto) 0.1, Sodium 140, Potassium 4.0, Chloride 101, Carbon Dioxide 35 H, Anion Gap 8.0, BUN 9, Creatinine 1.10 H, Estimated Creat Clear 59, Estimated GFR 53 L, Est GFR ( Amer) 64, Glucose 133 H, Lactate 1.8, Calcium 8.7, Total Bilirubin 0.7, AST 39 H, ALT 34, Alkaline Phosphatase 121, Total Creatine Kinase 51, Total Protein 8.8 H, Albumin 3.9, Globulin 4.9 H, Albumin/Globulin Ratio 0.8 L, Serum HCG, Qual Negative 03/19/25 00:26 03/19/25 00:26 Orders (Tests/Meds): ED MEDICATIONS Generic Name Dose Route Start Last Admin Trade Name Freq PRN Reason Stop Dose Admin Acetaminophen 650 mg 03/19/25 01:37 Acetaminophen 325mg Tab PO 04/18/25 01:36 Q4HP PRN Fever or Mild Pain (1-3) Heparin Sodium (Porcine) 5,000 unit 03/19/25 09:00 Heparin Sodium 5,000 Unit/Ml Vial SUBCUT 04/18/25 08:59 TID [facility] Insulin Human Lispro 0 unit 03/19/25 01:45 Humalog 100 Units/Ml 10ml Vial (Ssi) SUBCUT 04/18/25 01:44 Q6H [facility] Protocol Morphine Sulfate 2 mg 03/19/25 01:37 Morphine 2mg/Ml Syringe IV 04/18/25 01:36 Q4HP PRN Severe Pain (7-10) Ondansetron HCl 4 mg 03/19/25 01:37 Ondansetron 4mg/2ml Vial IV 04/18/25 01:36 Q8HP PRN Nausea Oxycodone HCl 5 mg 03/19/25 01:37 Oxycodone 5mg Immediate Release Tablet PO 04/18/25 01:36 Q4HP PRN Moderate Pain (4-6) Discontinued Medications Generic Name Dose Route Start Last Admin Trade Name Freq PRN Reason Stop Dose Admin Morphine Sulfate 4 mg 03/19/25 00:38 03/19/25 00:44 Morphine 4mg/Ml Syringe IV 03/19/25 00:39 4 mg ONCE ONE Administration Ondansetron HCl 4 mg 03/19/25 00:38 03/19/25 00:44 Ondansetron 4mg/2ml Vial IV 03/19/25 00:39 4 mg ONCE ONE Administration ORDERS Category Date Time Status CT cervical spine wo con Stat Cat Scan 03/18/25 23:[address] head/brain wo con Stat Cat Scan 03/18/25 23:29 Completed CXR --portable [XR chest portable] Stat Exams 03/18/25 23:29 Completed Pelvis XR 1-2 views [XR pelvis 1-2V] Stat Exams 03/18/25 23:29 Completed XR femur LT 2V Stat Exams 03/18/25 23:29 Completed XR femur RT 2V Stat Exams 03/18/25 23:29 Completed XR tibia fibula LT 2V Stat Exams 03/18/25 23:29 Completed XR tibia fibula RT 2V Stat Exams 03/18/25 23:29 Completed Basic Metabolic Panel [facility] Lab 03/20/25 06:00 Ordered Basic Metabolic Panel [facility] Lab 03/21/25 06:00 Ordered Basic Metabolic Panel [facility] Lab 03/22/25 06:00 Ordered CBC w/Auto Diff [Complete Blood Count Auto Diff] Stat Lab 03/18/25 23:29 Completed CK [Creatine Kinase] Stat Lab 03/18/25 23:29 Completed CMP [Comprehensive Metabolic Panel] Stat Lab 03/18/25 23:29 Completed Complete Blood Count Auto Diff [facility] Lab 03/20/25 06:00 Ordered Complete Blood Count Auto Diff [facility] Lab 03/21/25 06:00 Ordered Complete Blood Count Auto Diff [facility] Lab 03/22/25 06:00 Ordered HCG Qualitative, Serum Stat Lab 03/18/25 23:57 Completed Lactic Acid Stat Lab 03/18/25 23:29 Completed Magnesium [facility] Lab 03/20/25 06:00 Ordered Magnesium [facility] Lab 03/21/25 06:00 Ordered Magnesium [facility] Lab 03/22/25 06:00 Ordered Medical Decision Narrative: In summary, this 49-year-old female with comorbidities described in the HPI presents to the emergency department today with concerns of fall earlier today now complaining of leg pain bilaterally. On initial evaluation patient's airway is intact, bilateral breath sounds present, GCS 15, no neurologic deficits, benign cardiopulmonary exam, benign abdominal exam, no tenderness, bruising, or deformity appreciated throughout the extremities. There is an old wound at the left lateral ankle that appears to have healthy granulation tissue and no evidence of infection, neurovascularly intact throughout, no tenderness throughout the C, T, or L-spine,. Differential diagnosis includes but is not limited to fracture, dislocation, I considered the possibility of intracranial bleed or C-spine injury as well, I also considered the possibility of electrolyte abnormality, dehydration, lactic acidosis. Based on these concerns, I ordered hematologic and serum labs, CT imaging of the head and neck as well as x-rays of the lower extremities though I do not appreciate deformity or bruising. Patient received morphine and Zofran for pain management. Labs personally reviewed demonstrate no leukocytosis or anemia, thrombocytopenia present but nonactionable, CMP not acutely actionable although creatinine is slightly elevated compared to prior, she is tolerating oral intake. hCG negative. CT head and C-spine personally interpreted demonstrate no acute traumatic injury in the head or neck though patient's body habitus limits the exam. Chest x-ray personally interpreted is limited secondary to her obesity but there is no obvious acute traumatic injury, no pneumothorax, hemothorax, or obvious displaced rib fracture. Pelvis x-ray personally interpreted does not demonstrate open book pelvic fracture though exam is limited by habitus. See radiology reads for final interpretations. Patient has old changes in the left lower extremity. See reads for full information. On reassessment, patient's pain is improved. I discussed that she would require admission to the hospital because she now has no way to take care of herself or use her restroom at home since she ripped her handicap bar off the wall in the bathroom when she fell and she does not have a functional shower chair. I recommended admission for social work because of her progressive debility and now inability to care for herself without appropriate equipment at home. I discussed this case with the hospitalist and he graciously accepted the patient for admission. She was admitted in stable condition. Critical Care Critical Care Time Critical Care Time: No
[2025-03-19] MEDS: ONDANSETRON 4MG/2ML VIAL 4 MG IV (00:44)
[2025-03-19] MEDS: MORPHINE 4MG/ML SYRINGE 4 MG IV (00:44)
[2025-03-19 00:51] LABS: Alanine Aminotransferase 34 U/L (12-78); Albumin Level 3.9 g/dl (3.5-5.0); Albumin/Globulin Ratio 0.8 (1.1-1.8); Alkaline Phosphatase 121 U/L (38-126); Anion Gap 8.0 mEq/L (5-15); Aspartate Amino Transferase 39 U/L (14-36); Bilirubin,Total 0.7 mg/dl (0.2-1.3); Blood Urea Nitrogen 9 mg/dl (7-17); Calcium 8.7 mg/dl (8.4-10.2); Carbon Dioxide 35 mmol/L (22.0-30.0); Chloride 101 mmol/L (98-107); Creatine Kinase 51 U/L (30-135); Creatinine Clearance Estimated 59 mL/min (50-200); Creatinine,Serum 1.10 mg/dl (0.52-1.04); Estimated Glomerular Filt Rate 53 ml/min (>60); GFR (African American) 64 ML/MIN (>60); Globulin 4.9 g/dL (1.3-3.2); Glucose 133 mg/dl (74-100); Potassium 4.0 mmoL/L (3.5-5.1); Sodium 140 mmol/L (136-145); Total Protein,Serum 8.8 g/dl (6.3-8.2)
[2025-03-19 00:53] LABS: HCG Qualitative, Serum Negative (Negative)
--- NOTE | 2025-03-19 01:37 | EXP.HP ---
History of Present Illness *Admission Date: 03/19/25 *Reason for visit:: Status post fall, ambulation issues, unable to enter house *History of present illness: 49-year-old with past medical history of diabetes, morbid obesity, anxiety, PTSD, hypertension. Patient presents after fall in bathroom today. Patient was reportedly ambulating in bathroom, when she fell between toilet and tub. Patient broke bathroom grab bar and fell. Patient unable to ambulate and called EMS. EMS brought patient to hospital, with multiple x-rays done in the emergency room all without signs of fractures. No family or friends could pick patient up from hospital. Patient states she is unable to and her house secondary to leg discomfort after fall. Denies chest pain, palpitations, shortness of breath, productive cough, fevers, chills, known sick contacts, recent travel, GI bleeding. [facility] Disclaimer: The information contained in this section may have been updated after the patient was seen, as this information can be updated by other users. Medical History (Updated 03/19/25 @ 03:10 by Wesley Kingston MD) Umbilical hernia Adjustment disorder with mixed anxiety and depressed mood Atelectasis Bipolar disorder, unspecified Calculus of gallbladder with acute cholecystitis without obstruction Dependence on wheelchair Edema, unspecified Fatty (change of) liver, not elsewhere classified Gastro-esophageal reflux disease without esophagitis Acute low back pain due to spinal disorder Morbid (severe) obesity due to excess calories Other stimulant dependence, uncomplicated Generalized polyneuropathy Chronic kidney disease due to diabetes mellitus Unspecified open wound, left ankle, subsequent encounter Presence of IVC filter Hypertension DDD (degenerative disc disease), thoracic DDD (degenerative disc disease), lumbar DDD (degenerative disc disease), cervical Surgical History H/O hernia repair H/O toe surgery History of colonoscopy [place] teeth extracted Hx of cholecystectomy History of ankle surgery History of back surgery Social History Smoking Status: Current every day smoker tobacco type: cigarettes packs per day: 2 and e-cigarettes smoking status start date: 1990 how long ago did patient quit smokin alcohol intake: never substance use type: former substance user and methamphetamine current occupational status: disabled Travel in the last 8 weeks?: None Other Medical History Have you received the Pneumonia Vaccine: Yes ([id number]) Review of Systems Review of Systems Review of systems:: pertinent systems reviewed and negative unless documented below Review of systems (narrative): see [facility] Home Medications and Allergies Home Medications ?Medication ?Instructions ?Recorded ?Confirmed ?Type acetaminophen 650 mg 650 mg PO Q4H PRN 11/18/24 01/27/25 History tablet,extended release ascorbic acid (vitamin C) 500 mg 500 mg PO BID 11/18/24 01/27/25 History tablet (Vitamin C) cetirizine 10 mg tablet 10 mg PO DAILY 11/18/24 01/27/25 History clonidine HCl 0.1 mg tablet 0.1 mg PO TID 11/18/24 01/27/25 History furosemide 20 mg tablet (Lasix) 20 mg PO BID PRN edema #60 tabs 11/18/24 01/27/25 Rx insulin glargine 100 unit/mL (3 20 unit SQ DAILY 11/18/24 01/27/25 History mL) subcutaneous pen (Lantus Solostar U-100 Insulin) insulin lispro 100 unit/mL 1 sliding scale dose SQ QID 11/18/24 01/27/25 History subcutaneous pen lactulose 10 gram/15 mL oral 30 g PO DAILY 11/18/24 01/27/25 History solution meloxicam 15 mg tablet 15 mg PO DAILY 11/18/24 01/27/25 History multivitamin-ferrous 1 tab PO DAILY 11/18/24 01/27/25 History fumarate-folic acid 18 mg-400 mcg tablet (Certavite-Antioxidant) omeprazole 40 mg capsule,delayed 40 mg PO DAILY 11/18/24 01/27/25 History release potassium chloride 10 mEq 10 meq PO BID 11/18/24 01/27/25 History capsule,extended release selenium sulfide 1 % shampoo 1 applic topical 2XW 11/18/24 01/27/25 History sofosbuvir 400 mg-velpatasvir 100 1 tab PO DAILY 11/18/24 01/27/25 History mg tablet zinc sulfate 50 mg zinc (220 mg) 50 mg PO DAILY 11/18/24 01/27/25 History 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,facsimile operator,cont #1 ea 12/07/24 01/27/25 Rx (Dexcom G7 Attendant Coin Operated Laundry) ondansetron HCl 4 mg tablet 4 mg PO Q8H PRN nausea and 12/10/24 01/27/25 Rx vomiting 5 days #20 tabs doxepin 100 mg capsule 100 mg PO HS #30 caps 12/24/24 01/27/25 Rx venlafaxine 150 mg 150 mg PO DAILY #30 caps 12/24/24 01/27/25 Rx capsule,extended release 24 hr alprazolam 1 mg tablet (Xanax) 1 mg PO TID PRN anxiety #90 tabs 02/24/25 Rx gabapentin 800 mg tablet See Rx Instructions .Route 03/09/25 Rx .COMPLEX #90 tabs lancets 28 gauge (FreeStyle #300 ea 03/10/25 Rx Lancets) semaglutide 1 mg/dose (4 mg/3 mL) 1 mg (0.75 mL) SQ Q7D #9 mL 03/10/25 Rx subcutaneous pen injector (OzLiveBidic) blood sugar diagnostic (FreeStyle #300 strips 03/15/25 Rx Lite Strips) 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 meter (FreeStyle #1 kit 03/15/25 Rx Lite Meter kit) 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 sensor (Dexcom G7 #9 ea 03/15/25 Rx Sensor device) pen needle, diabetic 31 gauge x #100 ea 03/15/25 Rx 5/16 (Ultra-Fine Pen Needle) New Prescriptions to Start Prescriptions: Allergies Allergy/AdvReac Type Severity Reaction Status Date / Time No Known Allergies Allergy Verified 01/27/25 13:22 Exam Data for Last 24 hours Vital signs and Labs for Last 24 Hours: Temp Pulse Resp BP Pulse Ox O2 Del Method 98.7 F 85 22 126/64 95 Room Air 03/18/25 23:28 03/19/25 00:23 03/18/25 23:28 03/19/25 01:00 03/19/25 00:23 03/18/25 23:28 Laboratory Results - last 24 hr 03/19/25 00:26: WBC 7.7, RBC 4.15 L, Hgb 12.4, Hct 39.2, MCV 94.5, MCH 29.9, MCHC 31.6 L, RDW 14.5, Plt Count 107 L, MPV 10.3, Neut % (Auto) 70.5, Lymph % (Auto) 17.5, [place] % (Auto) 9.1, Eos % (Auto) 1.6, Baso % (Auto) 0.9, Neut # (Auto) 5.4, Lymph # (Auto) 1.3, [place] # (Auto) 0.7, Eos # (Auto) 0.1, Baso # (Auto) 0.1, Sodium 140, Potassium 4.0, Chloride 101, Carbon Dioxide 35 H, Anion Gap 8.0, BUN 9, Creatinine 1.10 H, Estimated Creat Clear 59, Estimated GFR 53 L, Est GFR ( Amer) 64, Glucose 133 H, Lactate 1.8, Calcium 8.7, Total Bilirubin 0.7, AST 39 H, ALT 34, Alkaline Phosphatase 121, Total Creatine Kinase 51, Total Protein 8.8 H, Albumin 3.9, Globulin 4.9 H, Albumin/Globulin Ratio 0.8 L, Serum HCG, Qual Negative I & O for Last 24 hours: Intake & Output 03/16/25 03/17/25 03/18/25 03/19/25 23:59 23:59 23:59 23:59 Weight 204.117 kg Constitutional Constitutional: no acute distress, mild distress, morbidly obese and disheveled *Routine HEENT Exam Head: Present normocephalic Eye: Present EOMI ENT: Present mucous membranes moist *Routine Neck Exam Neck: Present supple and full ROM *Routine Respiratory Exam Respiratory: Present accessory muscle use and CTA bilaterally *Routine Cardiovascular Exam Cardiovascular: Present RRR, Normal S1 and Normal S2 *Routine Abdominal Exam Abdominal: Present soft and normoactive bowel sounds *Routine Rectal Exam Rectal:: deferred *Routine Genitalia Exam Genitalia:: deferred *Routine Extremities Exam Extremities: Present full ROM and normal capillary refill Comments: lower ext b/l noted during my exam *Routine Skin Exam Skin: Present intact *Routine Neurological Exam Neurological: Present alert, oriented X3 and moving all extremities Assessment and Plan *Assessment and plan (1) Fall: Status: Acute Category: Medical Code(s): W19.XXXA - Unspecified fall, initial encounter (2) Adult failure to thrive: Status: Acute Category: Medical Code(s): R62.7 - Adult failure to thrive (3) RANDY (acute kidney injury): Status: Acute Category: Medical Code(s): N17.9 - Acute kidney failure, unspecified (4) Type 2 diabetes mellitus: Status: Acute Category: Medical Code(s): E11.9 - Type 2 diabetes mellitus without complications (5) Hypertension: Status: Acute Category: Medical Code(s): I10 - Essential (primary) hypertension (6) Debility: Status: Acute Category: Medical Code(s): R53.81 - Other malaise (7) Chronic low back pain: Status: Acute Category: Medical Code(s): M54.50 - Low back pain, unspecified; G89.29 - Other chronic pain (8) Debilitated: Status: Acute Category: Medical Code(s): R53.81 - Other malaise Plan 49-year-old with past medical history of diabetes, morbid obesity, anxiety, PTSD, hypertension. Patient presents after fall in bathroom today. Patient was reportedly ambulating in bathroom, when she fell between toilet and tub. Patient presents with inability to ambulate, and no family to pick her up from hospital. Problems listed below: Status post fall Adult failure to thrive Generalized weakness ?Reviewed bilateral tibia/fibula/femur films without acute fractures. X-ray pelvis also showed no acute fracture. CT head without contrast without acute abnormalities. Portable chest x-ray without acute findings. CT cervical spine without acute fracture/findings. From ATLS perspective, patient shows no negative sequela from falls. Unfortunately, patient unable to ambulate to get home, and has no family/friends to pick her up. Admit for observation. Consult PT/OT. May require short-term rehab at time of hospitalization. ? NA 140, K4.0, CL 101, CO2 35, AST 39, ALT 34, CPK 51. Serum test negative. Will recheck patient electrolytes in a.m. and correct if needed. ?WBC 7.7, Hgb 12.4 at time of admission. No signs of acute anemia or infection during my admission assessment. RANDY BUN 9, CR 1.10. Gentle hydration 100 cc/h normal saline x 10 hours overnight. Diabetes: ? Sign scale insulin, ACHS Accu-Cheks, diabetic diet. Patient states she takes Lantus 20 units twice daily at home. Will start Lantus 10 units twice daily and titrate based on glucose readings. Patient admits to recent noncompliance with home Lantus. Check A1c during hospitalization. Hypertension: Hydralazine 10 mg IV every 6 as needed SBP greater than 160 PPx Lovenox 40 mg subcu daily FEN diabetic diet CODE STATUS full MDM ? I spoke with the emergency room about about patient at time of hospital admission ? I made decision to admit patient to hospital for generalized weakness, adult failure to thrive status post fall 35 minutes of total care time spent on patient by myself Wesley Kingston MD 03/19/2025 Discharge planning: Hopefully patient can be discharged from hospital within next 48 hours. Patient may be appropriate for discharge today if case management can arrange home transportation.
--- NOTE | 2025-03-19 02:02 | PC.NURSE ---
Pt placed back on purewick and provided a warm blanket.
--- NOTE | 2025-03-19 02:14 | PC.NURSE ---
Pt was provided a water and placed on 1L of oxygen via NC.
[2025-03-19 04:25] LABS: Hemoglobin A1C 6.8 % (4.0-6.0)
--- NOTE | 2025-03-19 07:07 | PC.WOUNDNOTE ---
rt leg left ankle
[2025-03-19 07:39] LABS: POC Glucose,Bedside 115 gm/dL (70-110)
[2025-03-19] MEDS: OXYCODONE 5MG IMMEDIATE RELEASE TABLET 5 MG PO ×2 (09:03→17:16)
[2025-03-19] MEDS: INSULIN GLARGINE 100 UNITS/ML 3ML FLEXPEN 10 UNIT SUBCUT (09:04)
--- NOTE | 2025-03-19 09:18 | HMH.PHAINT1 ---
Pharmacy Intervention Comments: MEDICATION RECONCILIATION COMPLETED ON PATIENT USING EXTERNAL FILL HISTORY FROM PHARMACY AND LAUREN REPORT. -SWATI ONEIL, DARLINGD
[2025-03-19 09:22] LABS: POC Glucose,Bedside 134 gm/dL (70-110)
[2025-03-19 11:18] LABS: NT Pro Brain Natriuretic Pep. 22.4 pg/mL (0-125)
[2025-03-19 11:40] LABS: Thyroid Stimulating Hormone 0.66 uIU/mL (0.465-4.68)
[2025-03-19] MEDS: VENLAFAXINE XR 75MG CAPSULE 150 MG PO (11:52)
[2025-03-19] MEDS: FUROSEMIDE 40MG/4ML VIAL 40 MG IV (11:52)
[2025-03-19 11:59] LABS: Vitamin B12 347 pg/mL (239-931)
[2025-03-19] MEDS: MORPHINE 2MG/ML SYRINGE 2 MG IV ×2 (12:01→22:38)
[2025-03-19 12:13] LABS: POC Glucose,Bedside 127 gm/dL (70-110)
[2025-03-19 17:19] LABS: POC Glucose,Bedside 158 gm/dL (70-110)
[2025-03-19 20:36] LABS: POC Glucose,Bedside 150 gm/dL (70-110)
--- NOTE | 2025-03-19 22:41 | PC.NURSE ---
224 took gabapentin 800 mg for Pt she refused it wanted Iv Pain MED. Took pt the Iv morphine. Call light it is with in reach and bed's wheels are locked JUANITA ECHEVERRIA RN
[2025-03-20] VITALS: BP 93/62; PULSE 83; PULSE 93; RESP 18; TEMP 37; O2SAT 92
--- NOTE | 2025-03-20 00:21 | PC.NURSE ---
while doing [place] vital was called tot he Room Pt was Desatting to 84. Told me she had a history of vaping. placed 2 L o2 nc on PT with a continuous O2 sat monitor. notified Md Calixto Beck. JUANITA ECHEVERRIA RN
[2025-03-20 04:00] VITALS: BP 105/59; PULSE 77; PULSE 83; RESP 16; TEMP 36.9; O2SAT 97
--- NOTE | 2025-03-20 04:37 | PC.NURSE ---
0437 pt is not able to stand on the scales for daily weight and the bed does not have a bed scale in it. Later today we can get her up to the standing scale. JUANITA ECHEVERRIA RN
[2025-03-20 05:49] LABS: POC Glucose,Bedside 112 gm/dL (70-110)
[2025-03-20 07:41] LABS: Hematocrit 38.4 % (37.0-47.0); Hemoglobin 11.9 g/dL (12.2-16.2); Immature Granulocytes % 0.3 %; Mean Corpuscular HGB Conc 31.0 g/dL (31.8-35.4); Mean Corpuscular Hemoglobin 29.2 pg (27.0-31.2); Mean Corpuscular Volume 94.1 fl (81-99); Nucleated Red Blood Cells % 0 %; Platelet Count 104 K/mm3 (142-424); Red Blood Count 4.08 M/mm3 (4.20-5.40); Red Cell Distribution Width-SD 48.1 fL; White Blood Count 6.5 K/mm3 (4.8-10.8)
[2025-03-20 07:44] LABS: Chloride 96 mmol/L (98-107); Sodium 138 mmol/L (136-145)
[2025-03-20 07:45] LABS: Potassium 4.1 mmoL/L (3.5-5.1)
[2025-03-20 07:48] LABS: Anion Gap 10.1 mEq/L (5-15); Blood Urea Nitrogen 13 mg/dl (7-17); Calcium 8.5 mg/dl (8.4-10.2); Carbon Dioxide 36 mmol/L (22.0-30.0); Creatinine Clearance Estimated 59 mL/min (50-200); Creatinine,Serum 1.10 mg/dl (0.52-1.04); Estimated Glomerular Filt Rate 53 ml/min (>60); GFR (African American) 64 ML/MIN (>60); Glucose 113 mg/dl (74-100); Magnesium 2.0 mg/dl (1.6-2.3)
[2025-03-20 08:00] VITALS: BP 118/72; PULSE 65; PULSE 80; RESP 16; TEMP 36.5; O2SAT 96
[2025-03-20 09:25] LABS: Folate 6.32 ng/mL
[2025-03-20] MEDS: INSULIN GLARGINE 100 UNITS/ML 3ML FLEXPEN 20 UNIT SUBCUT (09:44)
[2025-03-20] MEDS: FUROSEMIDE 40MG/4ML VIAL 40 MG IV (09:44)
[2025-03-20] MEDS: GABAPENTIN 800MG TABLET 800 MG PO ×2 (09:45→12:20)
[2025-03-20] MEDS: VENLAFAXINE XR 75MG CAPSULE 150 MG PO (09:48)
[2025-03-20 10:04] LABS: POC Glucose,Bedside 131 gm/dL (70-110)
[2025-03-20] MEDS: OXYCODONE 5MG IMMEDIATE RELEASE TABLET 5 MG PO (10:07)
--- NOTE | 2025-03-20 10:15 | PC.NURSE ---
at 0930 SRNAs notified this RN that the patient stated she lost her vape and needed her items placed on her bedside table. this RN found a vape under patients bed and educated patient that this is a no smoking facility, and given that she is on 2LNC at this time i explained safety concerns, I explained to patient we will lock the vape in her room in a drawer and she will receive in on discharge. patient became angry and stated she needs her vape and that she does not hit it she uses it as a safety blanket. i notified auditor in charge, which also came to bedside and explained to patient the need to lock up the vape. patient remained upset but did agree to lock vape in drawer, patient asked to see vape one more time before putting it in the drawer, patient hit the vape then handed it to this RN. vape was locked in the right sided drawer.
[2025-03-20 11:20] LABS: POC Glucose,Bedside 123 gm/dL (70-110)
[2025-03-20 12:00] VITALS: BP 122/67; PULSE 85; RESP 22; TEMP 36.6; O2SAT 93
--- NOTE | 2025-03-20 13:01 | HMH.PTEV ---
Physical Therapy Evaluation Rehab PT IP Evaluation Start: 03/19/25 05:52 Freq: ONCE Status: Active Protocol: Document 03/20/25 12:53 ABE (Rec: 03/20/25 13:01 PHORKEESHA [id number]) Subjective/History History History 49-year-old with past medical history of diabetes, morbid obesity, anxiety, PTSD, hypertension. Patient presents after fall in bathroom today. Patient was reportedly ambulating in bathroom, when she fell between toilet and tub. Patient broke bathroom grab bar and fell. Patient unable to ambulate and called EMS. EMS brought patient to hospital, with multiple x- rays done in the emergency room all without signs of fractures. No family or friends could pick patient up from hospital. Patient states she is unable to and her house secondary to leg discomfort after fall. Denies chest pain, palpitations, shortness of breath, productive cough, fevers, chills, known sick contacts, recent travel, GI bleeding. Subjective Subjective Pt presents awake, supine in bed, agrees to mobility assessment this am. I need to use the bathroom. She reports she generally uses a wheelchair for mobility at home at her baseline because I fell and I can't use my right leg because it hurts. Pt later reports she can't use her LEFT leg because it hurts after treatment was performed. She reports she lives alone, but has family assistance available and she is generally independent with all mobility using her wheelchair. [facility] How much help from another person do you currently need... Turning from your None back to your side while in a flat bed without using bedrails? Moving from lying on None back to sitting on the side of a flat bed without using bedrails? Moving to and from a None bed to a chair ( including a wheelchair)? Standing up from a None chair using your arms? (e.g., wheelchair, bedside chair) Walking in hospital A lot room? Climbing 3-5 steps A lot with a railing? Mobility Score 20 Mobility Level [facility] Mobility 6 Walk 10 steps or more Mobility Calculator Rehab PT IP Eval Objective Appearance Patient Behavior Appropriate Patient Orientation Person,Place,Time Difficulty following none instructions Speech Pattern Clear Ambulation Patient Able to No Ambulate Balance Ability to Arise Able, uses arms to help Sitting Balance Steady, safe Standing Balance Steady, wide stance Dynamic Sitting Good Balance Ability Dynamic Standing Fair Balance Ability Transfers Bed Transfer Ability Supervision/Stand by Chair Transfer Contact Guard/Hand Hold Ability Sit to Stand Bed Contact Guard/Hand Hold Transfer Ability Sit to Stand Chair Contact Guard/Hand Hold Transfer Ability Rehab PT IP prob,goals,plan Problems Date of Evaluation: 03/20/25 PT IP Problems Transfers,Gait,Self care,Safety Rehab Potential Rehab Potential Good Plan PT Intervention Plan Transfers,Gait,Self care,Safety PT Plan Frequency Daily Duration LOS Discharge Goals Sit to Stand Chair Supervision/Stand by Transfer Ability Discharge Plan PT Discharge Plan Pt is currently able to transfer from bed to BSC with CGA x 1 despite her c/o LE pain/discomfort. She appears to be a poor historian due to her comments of needing 2-3 more days to stay in the hospital despite mobility close to baseline and changing reports of which leg she reports is limiting her mobility during transfers. She currently appears to be appropriate to return home once medically stable with w/c for all mobility. Recommend a BSC if she does not already have one at home. Home Health therapy would be indicated to assist pt with improved ambulation after she returns home. Skilled acute therapy services are indicated to aid pt improvement in transfers and general mobility in order to return pt to [facility]. Eval Complexity Eval Charge Codes 60193 - High Complexity PHYSICIAN CERTIFICATION: I certify the specified therapy services for Eryn Poon are required, authorized, and reviewed every 30 days.
--- NOTE | 2025-03-20 14:14 | EXP.DC.SUM ---
General Admission date:: 03/19/25 HPI HPI HPI: 49-year-old with past medical history of diabetes, morbid obesity, anxiety, PTSD, hypertension. Patient presents after fall in bathroom today. Patient was reportedly ambulating in bathroom, when she fell between toilet and tub. Patient broke bathroom grab bar and fell. Patient unable to ambulate and called EMS. EMS brought patient to hospital, with multiple x-rays done in the emergency room all without signs of fractures. No family or friends could pick patient up from hospital. Patient states she is unable to and her house secondary to leg discomfort after fall. Denies chest pain, palpitations, shortness of breath, productive cough, fevers, chills, known sick contacts, recent travel, GI bleeding. Hospital Course Hospital Course Hospital Course: Eryn Poon is a 49-year-old with past medical history of diabetes, morbid obesity, anxiety, PTSD, hypertension. Patient presented after fall in bathroom today. Patient was reportedly ambulating in bathroom, when she fell between toilet and tub after bathroom grab bar broke. Patient presented with inability to ambulate, and no family to pick her up from hospital. Problems listed below: Status post fall Generalized weakness ?Reviewed bilateral tibia/fibula/femur films without acute fractures. X-ray pelvis also showed no acute fracture. CT head without contrast without acute abnormalities. Portable chest x-ray without acute findings. CT cervical spine without acute fracture/findings. From ATLS perspective, patient shows no negative sequela from falls. ? Initially had difficulty transferring to bedside commode, pivoting. However, this improved during PT evaluation who deemed patient at baseline. Recommended bedside commode. At baseline, patient uses wheelchair. ? NA 140, K4.0, CL 101, CO2 35, AST 39, ALT 34, CPK 51. Serum test negative. Will recheck patient electrolytes in a.m. and correct if needed. ?WBC 7.7, Hgb 12.4 at time of admission. No signs of acute anemia or infection during my admission assessment. RANDY BUN 9, CR 1.10. Gentle hydration 100 cc/h normal saline x 10 hours overnight. Diabetes: ? Sign scale insulin, ACHS Accu-Cheks, diabetic diet. Patient states she takes Lantus 20 units twice daily at home. Will start Lantus 10 units twice daily and titrate based on glucose readings. Patient admits to recent noncompliance with home Lantus. Check A1c during hospitalization. Hypertension: Hydralazine 10 mg IV every 6 as needed SBP greater than 160 Total time spent on discharge: 32 minutes on chart review, counseling, documentation, and direct care with patient. Exam Data for Last 24 hours Vital signs and Labs for Last 24 Hours: Temp Pulse Resp BP Pulse Ox O2 Del Method O2 Flow Rate 97.9 F 85 22 122/67 93 L Room Air 2 03/20/25 12:00 03/20/25 12:00 03/20/25 12:00 03/20/25 12:00 03/20/25 12:00 03/20/25 12:00 03/20/25 08:00 Laboratory Results - last 24 hr 03/19/25 17:10: POC Glucose 158 H 03/19/25 20:27: POC Glucose 150 H 03/20/25 05:42: POC Glucose 112 H 03/20/25 07:00: WBC 6.5, RBC 4.08 L, Hgb 11.9 L, Hct 38.4, MCV 94.1, MCH 29.2, MCHC 31.0 L, RDW 14.2, Plt Count 104 L, MPV 10.9 H, Neut % (Auto) 59.9, Lymph % (Auto) 27.0, [place] % (Auto) 10.0 H, Eos % (Auto) 1.9, Baso % (Auto) 0.9, Neut # (Auto) 3.9, Lymph # (Auto) 1.8, [place] # (Auto) 0.7, Eos # (Auto) 0.1, Baso # (Auto) 0.1, Sodium 138, Potassium 4.1, Chloride 96 L, Carbon Dioxide 36 H, Anion Gap 10.1, BUN 13 D, Creatinine 1.10 H, Estimated Creat Clear 59, Estimated GFR 53 L, Est GFR ( Amer) 64, Glucose 113 H, Calcium 8.5, Magnesium 2.0, Folate 6.32 03/20/25 09:36: POC Glucose 131 H 03/20/25 11:13: POC Glucose 123 H I & O for Last 24 hours: Intake & Output 03/17/25 03/18/25 03/19/25 03/20/25 23:59 23:59 23:59 23:59 Intake Total 480 / 702 702 / 702 Output Total 1080 / 1080 650 / 650 Balance -600 / -378 Weight 204.117 kg 204.117 kg Results Data Completed and Pending Labs on day of discharge: Labs from last 24 hours 03/20/25 03/20/25 03/20/25 11:13 09:36 07:00 WBC 6.5 RBC 4.08 L Hgb 11.9 L Hct 38.4 MCV 94.1 MCH 29.2 MCHC 31.0 L RDW 14.2 Plt Count 104 L MPV 10.9 H Neut % (Auto) 59.9 Lymph % (Auto) 27.0 [place] % (Auto) 10.0 H Eos % (Auto) 1.9 Baso % (Auto) 0.9 Neut # (Auto) 3.9 Lymph # (Auto) 1.8 [place] # (Auto) 0.7 Eos # (Auto) 0.1 Baso # (Auto) 0.1 Sodium 138 Potassium 4.1 Chloride 96 L Carbon Dioxide 36 H Anion Gap 10.1 BUN 13 D Creatinine 1.10 H Estimated Creat Clear 59 Estimated GFR 53 L Est GFR ( Amer) 64 Glucose 113 H POC Glucose 123 H 131 H Calcium 8.5 Magnesium 2.0 Folate 6.32 03/20/25 03/19/25 03/19/25 05:42 20:27 17:10 WBC RBC Hgb Hct MCV MCH MCHC RDW Plt Count MPV Neut % (Auto) Lymph % (Auto) [place] % (Auto) Eos % (Auto) Baso % (Auto) Neut # (Auto) Lymph # (Auto) [place] # (Auto) Eos # (Auto) Baso # (Auto) Sodium Potassium Chloride Carbon Dioxide Anion Gap BUN Creatinine Estimated Creat Clear Estimated GFR Est GFR ( Amer) Glucose POC Glucose 112 H 150 H 158 H Calcium Magnesium Folate DS: Diagnosis Discharge Diagnosis (1) Fall: Status: Acute Code(s): W19.XXXA - Unspecified fall, initial encounter (2) Adult failure to thrive: Status: Acute Code(s): R62.7 - Adult failure to thrive (3) RANDY (acute kidney injury): Status: Acute Code(s): N17.9 - Acute kidney failure, unspecified (4) Type 2 diabetes mellitus: Status: Acute Code(s): E11.9 - Type 2 diabetes mellitus without complications (5) Hypertension: Status: Acute Code(s): I10 - Essential (primary) hypertension (6) Debility: Status: Acute Code(s): R53.81 - Other malaise (7) Chronic low back pain: Status: Acute Code(s): M54.50 - Low back pain, unspecified; G89.29 - Other chronic pain Meds Home Medications and Allergies Home Medications ?Medication ?Instructions ?Recorded ?Confirmed ?Type acetaminophen 650 mg 650 mg PO Q4HP PRN Mild Pain 11/18/24 03/19/25 History tablet,extended release (Scale Score 1-4) ascorbic acid (vitamin C) 500 mg 500 mg PO BID 11/18/24 03/19/25 History tablet (Vitamin C) cetirizine 10 mg tablet 10 mg PO DAILY 11/18/24 03/19/25 History insulin glargine 100 unit/mL (3 20 unit SQ DAILY 11/18/24 03/19/25 History mL) subcutaneous pen (Lantus Solostar U-100 Insulin) insulin lispro 100 unit/mL 1 sliding scale dose SQ ACHS 11/18/24 03/19/25 History subcutaneous pen multivitamin-ferrous 1 tab PO DAILY 11/18/24 03/19/25 History fumarate-folic acid 18 mg-400 mcg tablet (Certavite-Antioxidant) zinc sulfate 50 mg zinc (220 mg) 50 mg PO DAILY 11/18/24 03/19/25 History 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,graphics manager,cont #1 ea 12/07/24 01/27/25 Rx (Dexcom G7 Licensed Marriage And Family Therapist) venlafaxine 150 mg 150 mg PO DAILY #30 caps 12/24/24 03/19/25 Rx capsule,extended release 24 hr lancets 28 gauge (FreeStyle #300 ea 03/10/25 Rx Lancets) blood sugar diagnostic (FreeStyle #300 strips 03/15/25 Rx Lite Strips) 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 meter (FreeStyle #1 kit 03/15/25 Rx Lite Meter kit) 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 sensor (Dexcom G7 #9 ea 03/15/25 Rx Sensor device) pen needle, diabetic 31 gauge x #100 ea 03/15/25 Rx 08/06 (Ultra-Fine Pen Needle) alprazolam 1 mg tablet (Xanax) 1 mg PO TIDP PRN anxiety 03/19/25 03/19/25 History furosemide 20 mg tablet (Lasix) 20 mg PO BIDP PRN edema 03/19/25 03/19/25 History gabapentin 800 mg tablet 800 mg PO TID 03/19/25 03/19/25 History semaglutide 1 mg/dose (4 mg/3 mL) 1 mg SQ WEEKLY 03/19/25 03/19/25 History subcutaneous pen injector (Ozempic) meloxicam 15 mg tablet 7.5 mg (1/2 x 15 mg) PO BIDP PRN 03/20/25 Rx pain #20 tabs New Prescriptions to Start Prescriptions: meloxicam Kemar Frederick Allergies Allergy/AdvReac Type Severity Reaction Status Date / Time No Known Allergies Allergy Verified 01/27/25 13:22 Discharge Plan Disposition Patient Disposition: Home, Self-Care Condition: Fair Follow up Plan Follow up with: Quentin Calvo MD [Staff Physician, [facility]] - 1 week Prescriptions/Medication Reconciliation: New meloxicam 15 mg tablet 7.5 mg PO BIDP PRN (Reason: pain) Qty: 20 0RF Continued cetirizine 10 mg tablet 10 mg PO DAILY acetaminophen 650 mg tablet extended release 650 mg PO Q4HP PRN (Reason: Mild Pain (Scale Score 1-4)) zinc sulfate 50 mg zinc (220 mg) tablet 50 mg PO DAILY ascorbic acid (vitamin C) [Vitamin C] 500 mg tablet 500 mg PO BID insulin lispro 100 unit/mL insulin pen 1 sliding scale dose SQ ACHS insulin glargine [Lantus Solostar U-100 Insulin] 100 unit/mL (3 mL) insulin pen 20 unit SQ DAILY Certavite-Antioxidant 18-400 mg-mcg tablet 1 tab PO DAILY venlafaxine 150 mg capsule,extended release 24hr 150 mg PO DAILY Qty: 30 2RF (DME) Dexcom G7 Licensed Marriage And Family Therapist Misc See Rx Instructions .Route Qty: 1 0RF Rx Instructions: As directed (DME) lancets [FreeStyle Lancets] 28 gauge misc See Rx Instructions .ROUTE .COMPLEX Qty: 300 11RF Dose Instruction: USE THREE TIMES A DAY *NEW PRESCRIPTION REQUEST* Rx Instructions: USE THREE TIMES A DAY *NEW PRESCRIPTION REQUEST* (DME) Dexcom G7 Sensor Device See Rx Instructions .ROUTE .COMPLEX Qty: 9 10RF Dose Instruction: USE DIRECTED TO TEST BLOOD GLUCOSE LEVEL CHANGE SENSOR EVERY 10 DAYS *NEW PRESCRIPTION REQUEST* Rx Instructions: USE DIRECTED TO TEST BLOOD GLUCOSE LEVEL CHANGE SENSOR EVERY 10 DAYS *NEW PRESCRIPTION REQUEST* (DME) FreeStyle Lite Strips Strip See Rx Instructions .ROUTE .COMPLEX Qty: 300 10RF Dose Instruction: USE DIRECTED TO TEST BLOOD SUGAR THREE TIMES A DAY *NEW PRESCRIPTION REQUEST* Rx Instructions: USE DIRECTED TO TEST BLOOD SUGAR THREE TIMES A DAY *NEW PRESCRIPTION REQUEST* (DME) 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 meter [FreeStyle Lite Meter] Kit See Rx Instructions .ROUTE .COMPLEX Qty: 1 10RF Dose Instruction: USE DIRECTED TO TEST BLOOD SUGAR *NEW PRESCRIPTION REQUEST* Rx Instructions: USE DIRECTED TO TEST BLOOD SUGAR *NEW PRESCRIPTION REQUEST* (DME) pen needle, diabetic [Ultra-Fine Pen Needle] 31 gauge x 5/16 needle See Rx Instructions .ROUTE .COMPLEX Qty: 100 10RF Dose Instruction: USE DIRECTED 3-4 TIMES DAILY *NEW PRESCRIPTION REQUEST* Rx Instructions: USE DIRECTED 3-4 TIMES DAILY *NEW PRESCRIPTION REQUEST* alprazolam [Xanax] 1 mg tablet 1 mg PO TIDP PRN (Reason: anxiety) gabapentin 800 mg tablet 800 mg PO TID furosemide [Lasix] 20 mg tablet 20 mg PO BIDP PRN (Reason: edema) Ozempic 1 mg/dose (4 mg/3 mL) pen injector 1 mg SQ WEEKLY Problem Reconciliation Problems Reviewed?: Yes Patient Discharge Instructions Patient Instructions: DI for High Blood Pressure, How to Prevent Falls, DI for Acute Kidney Injury Print Language: Montene[place]in Providers Primary Care Provider: Jacqueline Krueger Admit Provider: Kemar Frederick Attending Provider: Kemar Frederick
[2025-03-20 16:40] LABS: POC Glucose,Bedside 116 gm/dL (70-110)
--- NOTE | 2025-03-20 18:21 | PC.NURSE ---
previous IV fell out, new IV placed 20 right forearm, intact, patent, pink.
[2025-03-20 20:00] VITALS: BP 104/64; PULSE 85; RESP 14; TEMP 36.5
[2025-03-20 20:36] LABS: POC Glucose,Bedside 129 gm/dL (70-110)
--- NOTE | 2025-03-20 21:45 | EXP.PN ---
Subjective *Date: 03/20/25 *Time: 21:45 Interval history: PT recommended home health with bedside commode, as patient is at baseline. Patient prefers to go to SNF but does not want to give up her disability check. EMS came to transport patient home, but EMS requires co-signer from someone at home who can take care of patient given patient requires transport into home given debility. Patient does not have anyone close by, closest friend/family is 4 hours away. Will re-eval with PT again tomorrow regarding conditioning to go home by herself. Exam Data for Last 24 hours Vital signs and Labs for Last 24 Hours: Temp Pulse Resp BP Pulse Ox O2 Del Method O2 Flow Rate 97.7 F 85 14 104/64 L 93 L Room Air 2 03/20/25 20:00 03/20/25 20:00 03/20/25 20:00 03/20/25 20:00 03/20/25 12:00 03/20/25 20:15 03/20/25 08:00 Laboratory Results - last 24 hr 03/20/25 05:42: POC Glucose 112 H 03/20/25 07:00: WBC 6.5, RBC 4.08 L, Hgb 11.9 L, Hct 38.4, MCV 94.1, MCH 29.2, MCHC 31.0 L, RDW 14.2, Plt Count 104 L, MPV 10.9 H, Neut % (Auto) 59.9, Lymph % (Auto) 27.0, [place] % (Auto) 10.0 H, Eos % (Auto) 1.9, Baso % (Auto) 0.9, Neut # (Auto) 3.9, Lymph # (Auto) 1.8, [place] # (Auto) 0.7, Eos # (Auto) 0.1, Baso # (Auto) 0.1, Sodium 138, Potassium 4.1, Chloride 96 L, Carbon Dioxide 36 H, Anion Gap 10.1, BUN 13 D, Creatinine 1.10 H, Estimated Creat Clear 59, Estimated GFR 53 L, Est GFR ( Amer) 64, Glucose 113 H, Calcium 8.5, Magnesium 2.0, Folate 6.32 03/20/25 09:36: POC Glucose 131 H 03/20/25 11:13: POC Glucose 123 H 03/20/25 16:33: POC Glucose 116 H 03/20/25 20:19: POC Glucose 129 H I & O for Last 24 hours: Intake & Output 03/17/25 03/18/25 03/19/25 03/20/25 23:59 23:59 23:59 23:59 Intake Total 480 / 702 822 / 822 Output Total 1080 / 1080 650 / 650 Balance -600 / -378 172 / 172 Weight 204.117 kg 204.117 kg Constitutional Constitutional: no acute distress, obese and chronically ill appearing *Routine HEENT Exam Head: Present normocephalic Eye: Present EOMI and PERRL ENT: Present mucous membranes moist *Routine Neck Exam Neck: Present supple; Absent lymphadenopathy *Routine Respiratory Exam Respiratory: Present CTA bilaterally *Routine Cardiovascular Exam Cardiovascular: Present RRR *Routine Abdominal Exam Abdominal: Present soft and normoactive bowel sounds; Absent tenderness *Routine Extremities Exam Extremities: Absent cyanosis, clubbing or edema *Routine Skin Exam Skin: Present warm; Absent rash *Routine Neurological Exam Neurological: Present alert and oriented X3 Assessment and Plan *Assessment and plan (1) Fall: Status: Acute Category: Medical Code(s): W19.XXXA - Unspecified fall, initial encounter (2) Adult failure to thrive: Status: Acute Category: Medical Code(s): R62.7 - Adult failure to thrive (3) RANDY (acute kidney injury): Status: Acute Category: Medical Code(s): N17.9 - Acute kidney failure, unspecified (4) Type 2 diabetes mellitus: Status: Acute Category: Medical Code(s): E11.9 - Type 2 diabetes mellitus without complications (5) Hypertension: Status: Acute Category: Medical Code(s): I10 - Essential (primary) hypertension (6) Debility: Status: Acute Category: Medical Code(s): R53.81 - Other malaise (7) Chronic low back pain: Status: Acute Category: Medical Code(s): M54.50 - Low back pain, unspecified; G89.29 - Other chronic pain (8) Debilitated: Status: Acute Category: Medical Code(s): R53.81 - Other malaise Plan 49-year-old with past medical history of diabetes, morbid obesity, anxiety, PTSD, hypertension. Patient presents after fall in bathroom today. Patient was reportedly ambulating in bathroom, when she fell between toilet and tub. Patient presents with inability to ambulate, and no family to pick her up from hospital. Problems listed below: Status post fall Generalized weakness ?Reviewed bilateral tibia/fibula/femur films without acute fractures. X-ray pelvis also showed no acute fracture. CT head without contrast without acute abnormalities. Portable chest x-ray without acute findings. CT cervical spine without acute fracture/findings. From ATLS perspective, patient shows no negative sequela from falls. Unfortunately, patient unable to ambulate to get home, and has no family/friends to pick her up. - PT recommended home health with bedside commode, as patient is at baseline. Patient prefers to go to SNF but does not want to give up her disability check. - EMS came to transport patient home, but EMS requires co-signer for someone at home who can take care of patient given patient requires transport into home given debility. Patient does not have anyone close by, closest friend/family is 4 hours away. Will re-eval with PT again tomorrow regarding conditioning to go home by herself. Diabetes: ? Sign scale insulin, ACHS Accu-Cheks, diabetic diet. Patient states she takes Lantus 20 units twice daily at home. Will start Lantus 10 units twice daily and titrate based on glucose readings. Patient admits to recent noncompliance with home Lantus. A1c 6.8%. PPx Lovenox 40 mg subcu daily FEN diabetic diet CODE STATUS full
[2025-03-21] VITALS: BP 117/54; PULSE 79; RESP 18; TEMP 36.8; O2SAT 91
--- NOTE | 2025-03-21 00:23 | PC.NURSE ---
PT IS RESTING IN BED. PT HAS BEEN VERY DROWSY T/O THE SHIFT. 2100 DOSE GABAPENTIN HELD DUE TO DROWSINESS. ROOM AIR SATURATION WAS 88% AT THE BEGINNING OF THE SHIFT. PT WAS PLACED ON 2 L NC. PT HAS REFUSED TO LEAVE TELEMETRY AND CONTINUOUS PULSE OX ON. LUNG SOUNDS DIMINISHED. ABDOMEN SOFT/LARGE WITH HYPOACTIVE BOWEL SOUNDS. 1 ASSIST TO GET OOB TO BSC. PT HAS A VERY DIFFICULT TIME WITH KEEPING HER EYES OPEN DURING CONVERSATIONS. GLUCOSE 129. SCATTERED ABRASIONS NOTED TO BLE. WILL CONTINUE TO MONITOR.
[2025-03-21 04:00] VITALS: BP 127/78; PULSE 83; RESP 18; BMI 72.3
[2025-03-21 05:12] LABS: POC Glucose,Bedside 127 gm/dL (70-110)
[2025-03-21 06:40] LABS: Hematocrit 38.2 % (37.0-47.0); Hemoglobin 11.9 g/dL (12.2-16.2); Immature Granulocytes % 0.5 %; Mean Corpuscular HGB Conc 31.2 g/dL (31.8-35.4); Mean Corpuscular Hemoglobin 29.3 pg (27.0-31.2); Mean Corpuscular Volume 94.1 fl (81-99); Nucleated Red Blood Cells % 0.3 %; Platelet Count 113 K/mm3 (142-424); Red Blood Count 4.06 M/mm3 (4.20-5.40); Red Cell Distribution Width-SD 49.1 fL; White Blood Count 6.0 K/mm3 (4.8-10.8)
[2025-03-21 06:57] LABS: Chloride 94 mmol/L (98-107); Potassium 3.8 mmoL/L (3.5-5.1); Sodium 139 mmol/L (136-145)
[2025-03-21 07:00] LABS: Anion Gap 11.8 mEq/L (5-15); Blood Urea Nitrogen 16 mg/dl (7-17); Calcium 8.9 mg/dl (8.4-10.2); Carbon Dioxide 37 mmol/L (22.0-30.0); Creatinine Clearance Estimated 59 mL/min (50-200); Creatinine,Serum 1.10 mg/dl (0.52-1.04); Estimated Glomerular Filt Rate 53 ml/min (>60); GFR (African American) 64 ML/MIN (>60); Glucose 130 mg/dl (74-100); Magnesium 2.1 mg/dl (1.6-2.3)
[2025-03-21 08:00] VITALS: BP 126/81; PULSE 79; RESP 20; TEMP 36.4; O2SAT 95
[2025-03-21] MEDS: INSULIN GLARGINE 100 UNITS/ML 3ML FLEXPEN 20 UNIT SUBCUT (08:57)
[2025-03-21] MEDS: VENLAFAXINE XR 75MG CAPSULE 150 MG PO (08:57)
[2025-03-21 09:00] LABS: Lactate Venous 1.2 mmol/L (0.4-2.0); VBG HCO3 36.1 mmol/L (23-30); VBG PH 7.40 mmol/L (7.31-7.41); VBG PO2 93.6 mmol/L (28-40)
--- NOTE | 2025-03-21 09:04 | HMH.OTEV ---
OT Evaluation Rehab OT IP Evaluation Start: 03/19/25 05:54 Freq: ONCE Status: Active Protocol: Document 03/21/25 08:58 [email or web address] (Rec: 03/21/25 09:04 [email or web address] [id number]) Rehab OT IP Assessment Subjective History 49-year-old with past medical history of diabetes, morbid obesity, anxiety, PTSD, hypertension. Patient presents after fall in bathroom today. Patient was reportedly ambulating in bathroom, when she fell between toilet and tub. Patient broke bathroom grab bar and fell. Patient unable to ambulate and called EMS. EMS brought patient to hospital, with multiple x- rays done in the emergency room all without signs of fractures. No family or friends could pick patient up from hospital. Patient states she is unable to and her house secondary to leg discomfort after fall. Denies chest pain, palpitations, shortness of breath, productive cough, fevers, chills, known sick contacts, recent travel, GI bleed. Eryn Poon is a 49-year-old with past medical history of diabetes, morbid obesity, anxiety, PTSD, hypertension. Patient presented after fall in bathroom today. Patient was reportedly ambulating in bathroom, when she fell between toilet and tub after bathroom grab bar broke. Patient presented with inability to ambulate, and no family to pick her up from hospital. Problems listed: ?Reviewed bilateral tibia/fibula/femur films without acute fractures. X-ray pelvis also showed no acute fracture. CT head without contrast without acute abnormalities. Portable chest x-ray without acute findings. CT cervical spine without acute fracture/ findings. From ATLS perspective, patient shows no negative sequela from falls. Per patient report, she resides alone in a mobile home with approximately 20 steps to enter. Patient is currently unable to safely enter or exit the home and requires EMS assistance for transport outside the residence. Groceries are delivered. Although patient reports independence with all ADLs, premorbid level of function is unclear due to inconsistent and unreliable self-report. During initial evaluation, patient demonstrated confusion and impaired ability to follow and verify correct placement despite repeated verbal cues, raising concerns for decreased safety awareness and insight. Patient has a history of falls in the home and utilizes a wheelchair for mobility. At this time, patient is not safe to return home independently and requires SNF placement for continued skilled therapy, further functional and cognitive assessment, and to address safety with mobility and ADLs Subjective I need to use the restroom. Patient stated to have AE/devices at home, however they are not the correct size. Patient stated, I don't have any help. Objective Patient Orientation Person,Name,Birthday Right Upper WFL Extremity Gross ROM Left Upper Extremity WFL Gross ROM Bed Mobility bed mobility - supine/sit Assist Level Minimal x 1 (25% assist) Transfer Training Sit/Stand/Pivot Transfer Assist Level Minimal x 2 (25% assist) Chair Transfer Minimal x 2 (25% assist) Ability Rehab OT IP prob,goals,plan Problems Date of Evaluation: 03/21/25 OT IP Problems Bed Mobility,Transfers,Balance,Self care,Safety Rehab Potential Rehab Potential Good Equipment Needs Assistive Devices Wheelchair Plan OT intervention Plan Bed Mobility,Transfers,Balance,Self care,Safety, Therapeutic Exercise OT Plan Frequency Daily Duration LOS Discharge Goals Bed Mobility Ability Assistance x1 Sit to Stand Chair Contact Guard/Hand Hold Transfer Ability Chair Transfer Contact Guard/Hand Hold Ability Chair Transfer Sit to/from Ambulatory Technique Chair Transfer Rolling Walker Assistive Devices Discharge Plan OT Discharge Plan Per patient report, she resides alone in a mobile home with approximately 20 steps to enter. Patient is currently unable to safely enter or exit the home and requires EMS assistance for transport outside the residence. Groceries are delivered. Although patient reports independence with all ADLs, premorbid level of function is unclear due to inconsistent and unreliable self-report. During initial evaluation, patient demonstrated confusion and impaired ability to follow and verify correct placement despite repeated verbal cues, raising concerns for decreased safety awareness and insight. Patient has a history of falls in the home and utilizes a wheelchair for mobility. At this time, patient is not safe to return home independently and requires SNF placement for continued skilled therapy, further functional and cognitive assessment, and to address safety with mobility and ADLs Eval Complexity Eval Charge Codes 02775 - Low Complexity PHYSICIAN CERTIFICATION: I certify the specified therapy services for Eryn Poon are required, authorized, and reviewed every 30 days.
[2025-03-21 09:06] LABS: VBG PCO2 59.4 mmol/L (35-51)
--- NOTE | 2025-03-21 11:06 | SW/DCPLANNER ---
Addendum entered by [facility] 03/22/25 12:21: [facility] arraged for 2PM today. Addendum entered by [facility] 03/22/25 12:16: Patient improved w/ ambulation 10-15 ft and was able to do stairs w/ PT. Patient prefers to return home. I spoke w/ Lisa ([facility]) and she will transport patient home today. Per Dr Gillis patient will discharge home due to refusing placement. Addendum entered by [facility] 03/22/25 10:57: Per Alexand[facility] w/ [facility] currently no female beds [facility]. Alexandrea did request patient information w/ possible bed opening next week. Alexandrea phone: [phone] fax: [phone] Addendum entered by [facility] 03/22/25 10:51: Patient is now agreeable to placement in [place]. CM has attempted to contact [facility] x 3 w/ no return phone call. Patient and MD spoke w/ patient's mother via phone this AM regarding transportation to [place]. Per patient's mother she is not able to transport but will be reaching out to patient's daughter regarding transportation. Daughter will contact me directly regarding situation per patient's mother. CM will continue to follow up. Addendum entered by [facility] [facility] 03/21/25 15:34: Patient stated that she is waiting on a call back from her landlord. Patient voiced to myself and Business Development Assistant (James Munguia) that she is agreeable to placement in [place] and surrounding [facility] Patient infomation has been faxed to [facility], [facility], [facility], [facility] and [facility]. CM will continue to follow up. Addendum entered by [facility] [place] 03/21/25 14:27: Patient only able to take two steps w/ rolling walker at this time. I explained to patient that she is medically stable for discharge today. CM offered LTC again for this patient and she quickly refuses placement at this time. Patient mentioned placement in [place] where her family resides then refuses. I explained to patient that if she is not interested in placement and prefers to return home she would be responsible for finding a friend/family to transport due to the need of assistance. Patient requested a few more additional days in hospital. I again explained to family that she is medically stable for discharge. CM will continue to follow up. Original Note: I spoke w/ patient this AM regarding plans once medically stable for discharge. PT evaluated patient and recommended home w/ home health services. CM and MD did discuss the need for LTC due to having limited help at home and not being able to safely get herself in her home. Patient continuously refuses placement at this time. Patient wants to return home to smoke a cigerette. Due to patient not having anyone sign to be w/ her at home and being wheelchair bound except for transfers ambulance will not transport home. discussed w/ patient the need to ambulate longer distance to transport home via [facility] or will have to contact family to assist w/ transportation home. Patient is not interested in any resources at this time but returning home. CM will follow up once nursing is able to ambulate w/ patient.
[2025-03-21 11:48] LABS: POC Glucose,Bedside 107 gm/dL (70-110)
[2025-03-21 11:50] VITALS: BP 152/71; PULSE 74; RESP 18; TEMP 36.5; O2SAT 91
--- NOTE | 2025-03-21 13:53 | P.PN_ITS ---
Subjective *Date: 03/21/25 *Time: 13:53 Interval history: On 2 L oxygen this morning. Desatted overnight while asleep. Back to room air by morning. Attempts to ambulate with patient not very successful. Able to walk less than 10 feet without needing wheelchair to move around. States she uses a wheelchair at home. Has nobody at home to stay with her or support her at this time. Encouraged her to call her neighbor for support as she stated that they could be there to meet her. She is working on finding their number. Patient appears somewhat frustrated as she wants to go home. Strong concern about her ability to be successful given her lack of mobility and need for significant support. Afebrile. No nausea or vomiting. Tolerating p.o. intake Medical Exam Vital signs and Labs for Last 24 Hours: Vital Signs Temp Pulse Resp BP Pulse Ox O2 Del Method O2 Flow Rate 03/21/25 11:50 97.7 F 74 18 152/71 H 91 L Room Air 03/21/25 11:00 Nasal Cannula 03/21/25 08:51 Nasal Cannula 2 03/21/25 08:49 Nasal Cannula 2 03/21/25 08:00 97.6 F 79 20 126/81 95 Nasal Cannula 2 03/21/25 06:14 Nasal Cannula 2 03/21/25 04:37 Room Air 03/21/25 04:00 83 18 127/78 03/21/25 02:36 Nasal Cannula 2 03/21/25 00:49 Nasal Cannula 2 03/21/25 00:00 98.2 F 79 18 117/54 L 91 L Nasal Cannula 2 03/20/25 23:00 Nasal Cannula 2 03/20/25 20:15 Room Air 03/20/25 20:00 Nasal Cannula 2 03/20/25 20:00 97.7 F 85 14 104/64 L Room Air 03/20/25 18:24 Room Air 03/20/25 17:00 Room Air 03/20/25 15:00 Room Air Intake and Output 03/20/25 03/21/25 03/21/25 23:59 07:59 15:59 Intake Total 120 / 822 540 / 540 Output Total 500 / 800 300 / 800 Balance 120 / 172 -500 / -260 240 / -260 Intake: Intake, Oral Amount 120 / 822 540 / 540 Output: Output, Urine Amount 500 / 800 300 / 800 Other: Number of Voids 1 0 Number of Unmeasured Voids 1 Weight 204.117 kg Patient Weight 03/21/25 23:59 Weight 204.117 kg Laboratory Results - last 24 hr 03/20/25 16:33: POC Glucose 116 H 03/20/25 20:19: POC Glucose 129 H 03/21/25 05:04: POC Glucose 127 H 03/21/25 06:31: WBC 6.0, RBC 4.06 L, Hgb 11.9 L, Hct 38.2, MCV 94.1, MCH 29.3, MCHC 31.2 L, RDW 14.2, Plt Count 113 L, MPV 10.6 H, Neut % (Auto) 55.6, Lymph % (Auto) 30.1, [place] % (Auto) 10.6 H, Eos % (Auto) 2.2, Baso % (Auto) 1.0, Neut # (Auto) 3.3, Lymph # (Auto) 1.8, [place] # (Auto) 0.6, Eos # (Auto) 0.1, Baso # (Auto) 0.1, Sodium 139, Potassium 3.8, Chloride 94 L, Carbon Dioxide 37 H, Anion Gap 11.8, BUN 16, Creatinine 1.10 H, Estimated Creat Clear 59, Estimated GFR 53 L, Est GFR ( Amer) 64, Glucose 130 H, Calcium 8.9, Magnesium 2.1 03/21/25 08:50: VBG pH 7.40, VBG pCO2 59.4 H, VBG pO2 93.6 H, VBG HCO3 36.1 H, VBG Total CO2 38.0 H, VBG O2 Saturation 97.0 H, VBG Base Excess 11.4 H, VBG Lactic Acid 1.2 03/21/25 11:09: POC Glucose 107 I & O for Labs for Last 24 Hours: Intake & Output 03/18/25 03/19/25 03/20/25 03/21/25 23:59 23:59 23:59 23:59 Intake Total 480 / 702 822 / 822 540 / 540 Output Total 1080 / 1080 650 / 650 800 / 800 Balance -600 / -378 172 / 172 -260 / -260 Weight 204.117 kg 204.117 kg 204.117 kg Constitutional: Present no acute distress, morbidly obese and chronically ill appearing Respiratory: Present normal respiratory effort; Absent respiratory distress, stridor or wheezes Cardiac: Present Reg Rate and Rhythm GI: Present soft; Absent distention or tenderness Comments:: Obese Extremities: Present normal inspection and full ROM Skin: Present intact; Absent erythema Comment:: Scabbed abrasion on right knee approximately nickel sized Neuro: Present Grossly Intact, alert, awake, oriented x 3 and moves all extremities Assessment and Plan *Assessment and plan (1) Fall: Status: Acute Category: Medical Code(s): W19.XXXA - Unspecified fall, initial encounter (2) Adult failure to thrive: Status: Acute Category: Medical Code(s): R62.7 - Adult failure to thrive (3) RANDY (acute kidney injury): Status: Acute Category: Medical Code(s): N17.9 - Acute kidney failure, unspecified (4) Type 2 diabetes mellitus: Status: Acute Category: Medical Code(s): E11.9 - Type 2 diabetes mellitus without complications (5) Hypertension: Status: Acute Category: Medical Code(s): I10 - Essential (primary) hypertension (6) Debility: Status: Acute Category: Medical Code(s): R53.81 - Other malaise (7) Chronic low back pain: Status: Acute Category: Medical Code(s): M54.50 - Low back pain, unspecified; G89.29 - Other chronic pain (8) Debilitated: Status: Acute Category: Medical Code(s): R53.81 - Other malaise (9) Morbid (severe) obesity due to excess calories: Status: Chronic Category: Medical Code(s): E66.01 - Morbid (severe) obesity due to excess calories Plan 49-year-old with past medical history of diabetes, morbid obesity, anxiety, PTSD, hypertension. Patient presents after fall in bathroom today. Patient was reportedly ambulating in bathroom, when she fell between toilet and tub. Patient presents with inability to ambulate, and no family to pick her up from hospital. Attempting to coordinate safe disposition with case management. Continues to require inpatient hospitalization until plan determined. Problems listed below: Status post fall Generalized weakness ?Reviewed bilateral tibia/fibula/femur films without acute fractures. X-ray pelvis also showed no acute fracture. CT head without contrast without acute abnormalities. Portable chest x-ray without acute findings. CT cervical spine without acute fracture/findings. From ATLS perspective, patient shows no negative sequela from falls. Unfortunately, patient unable to ambulate to get home, and has no family/friends to pick her up. - PT recommended home health with bedside commode, as patient is at baseline. Does not want to be in long-term care. - EMS came to transport patient home, but EMS requires co-signer for someone at home who can take care of patient given patient requires transport into home given debility. Patient does not have anyone close by, closest friend/family is 4 hours away. Attempting to contact family or friend to meet patient at home. - Lab holiday in the morning. - VBG with pH of 7.4, pCO2 of 56. Chronically elevated with compensation of bicarb of 37 on BMP. Kidney function normal with creatinine 1.3, appears to be baseline for patient. Hemoglobin 11.9, white count 6. Diabetes: ? Continue sliding scale insulin and fingersticks ACHS. - diabetic diet. Patient states she takes Lantus 20 units twice daily at home. - A1c 6.8 this admission, morning glucose 130. Continue Lantus 20 units daily Morbid obesity complicates all aspects of her care. Patient's limited mobility and poor understanding of the impact her mobility has on her safety at home are impacting dispo planning. Continuing to work with case management and therapy for safe discharge plan. Patient would benefit from long-term care but is adamant she is not going back to long-term care facility. Was previously at a facility and left via her own decision. Is essentially homebound and gets around in a wheelchair at home except for transferring to the toilet into the bed. Is adamant about going back home even though this is a very dangerous situation. Attempting to facilitate transport. PPx Lovenox 40 mg subcu daily FEN diabetic diet CODE STATUS full
[2025-03-21 16:00] VITALS: BP 133/79; PULSE 79; RESP 19; TEMP 36.5; O2SAT 91
--- NOTE | 2025-03-21 16:07 | PC.NURSE ---
Patient drowsy but arousable. Requires 2L O2 via NC while sleeping or with exertion. Other vital signs stable. Complaints of bilateral foot pain, with pain meds withheld secondary to lethargy. Refuses tylenol. Up with 1-2 to commode. Attempted to ambulate with PT but was only able to take a few steps. Discharge issues due to lack of care at home and patient refusing to return to ECF. Social work and discharge planning involved.
[2025-03-21 16:59] LABS: POC Glucose,Bedside 101 gm/dL (70-110)
[2025-03-21 20:00] VITALS: BP 124/71; PULSE 88; RESP 16; TEMP 36.4; O2SAT 90
[2025-03-22 04:00] VITALS: BP 154/75; PULSE 78; RESP 18; TEMP 36.6; BMI 38.5
[2025-03-22 07:56] VITALS: BP 139/59; PULSE 78; RESP 18; TEMP 36.6; O2SAT 92
[2025-03-22] MEDS: VENLAFAXINE XR 75MG CAPSULE 150 MG PO (08:58)
[2025-03-22] MEDS: INSULIN GLARGINE 100 UNITS/ML 3ML FLEXPEN 20 UNIT SUBCUT (08:58)
[2025-03-22 09:16] LABS: POC Glucose,Bedside 103 gm/dL (70-110)
[2025-03-22] MEDS: OXYCODONE 5MG IMMEDIATE RELEASE TABLET 5 MG PO (10:58)
[2025-03-22 11:07] LABS: POC Glucose,Bedside 95 gm/dL (70-110)
[2025-03-22 11:36] VITALS: BP 157/82; PULSE 71; RESP 18; TEMP 36.5; O2SAT 90
--- NOTE | 2025-03-22 12:36 | EXP.DC.SUM ---
General Admission date:: 03/19/25 Discharge date: 03/22/25 HPI HPI HPI: 49-year-old with past medical history of diabetes, morbid obesity, anxiety, PTSD, hypertension. Patient presents after fall in bathroom today. Patient was reportedly ambulating in bathroom, when she fell between toilet and tub. Patient broke bathroom grab bar and fell. Patient unable to ambulate and called EMS. EMS brought patient to hospital, with multiple x-rays done in the emergency room all without signs of fractures. No family or friends could pick patient up from hospital. Patient states she is unable to and her house secondary to leg discomfort after fall. Denies chest pain, palpitations, shortness of breath, productive cough, fevers, chills, known sick contacts, recent travel, GI bleeding. Hospital Course Hospital Course Hospital Course: 49-year-old with past medical history of diabetes, morbid obesity, anxiety, PTSD, hypertension. Patient presents after fall in bathroom today. Patient was reportedly ambulating in bathroom, when she fell between toilet and tub. Patient presents with inability to ambulate, and no family to pick her up from hospital. Attempting to coordinate safe disposition with case management. Continues to require inpatient hospitalization until plan determined. Problems listed below: Status post fall Generalized weakness ?Reviewed bilateral tibia/fibula/femur films without acute fractures. X-ray pelvis also showed no acute fracture. CT head without contrast without acute abnormalities. Portable chest x-ray without acute findings. CT cervical spine without acute fracture/findings. From ATLS perspective, patient shows no negative sequela from falls. Unfortunately, initially patient unable to ambulate to get home, and has no family/friends to pick her up. - PT recommended home health with bedside commode, as patient is at baseline. Does not want to be in long-term care. - EMS came to transport patient home, but EMS requires co-signer for someone at home who can take care of patient given patient requires transport into home given debility. Patient does not have anyone close by, closest friend/family is 4 hours away. Numerous attempts to contact family and friends failed. Did attempt to reach out to nursing facility in [facility] to be near family, patient continued to be adamant however about going home. Eventually patient discharged home after being able to ambulate 25 feet and go up 4 steps on day of discharge. Roger coordinated along with staff from hospital who assisted with getting patient home and into her house. She is high risk for readmission. Many discussions about unsafe nature of her current living situation with the patient unfortunately achieved no further compromise. As patient is in her right mind and can make her own sound decisions, her decision to go home was honored. - VBG with pH of 7.4, pCO2 of 56. Chronically elevated with compensation of bicarb of 37 on BMP. Kidney function normal with creatinine 1.3, appears to be baseline for patient. Hemoglobin 11.9, white count 6. Diabetes: ? Patient states she takes Lantus 20 units twice daily at home. A1c 6.8 this admission, morning glucose 130. Continue Lantus 20 units daily Morbid obesity complicates all aspects of her care. Patient's limited mobility and poor understanding of the impact her mobility has on her safety at home are impacting dispo planning. Continuing to work with case management and therapy for safe discharge plan. Patient would benefit from long-term care but is adamant she is not going back to long-term care facility. Was previously at a facility and left via her own decision. Is essentially homebound and gets around in a wheelchair at home except for transferring to the toilet into the bed. Is adamant about going back home even though this is a very dangerous situation. Attempting to facilitate transport. On morning of discharge, able to ambulate 25 feet with a walker until needing to sit down in a wheelchair. Patient taken to some steps in the hospital, able to ambulate 4 steps using handrail only. Has 3 steps to get into her house on her deck. Given patient's mobility at baseline and ability to ambulate into her house, will discharge home. Patient would benefit from long-term care and rehab but is adamant she will not go back to nursing facility. Total time spent on discharge 45 minutes in counseling, documentation, chart review, and direct care with patient. Exam Data for Last 24 hours Vital signs and Labs for Last 24 Hours: Temp Pulse Resp BP Pulse Ox O2 Del Method O2 Flow Rate 97.7 F 71 18 157/82 H 90 L Room Air 2 03/22/25 11:36 03/22/25 11:36 03/22/25 11:36 03/22/25 11:36 03/22/25 11:36 03/22/25 11:36 03/22/25 03:00 Laboratory Results - last 24 hr 03/21/25 16:51: POC Glucose 101 03/22/25 08:53: POC Glucose 103 03/22/25 10:58: POC Glucose 95 I & O for Last 24 hours: Intake & Output 03/19/25 03/20/25 03/21/25 03/22/25 23:59 23:59 23:59 23:59 Intake Total 480 / 702 822 / 822 900 / 900 270 / 270 Output Total 1080 / 1080 650 / 650 1100 / 1100 50 / 50 Balance -600 / -378 172 / 172 -200 / -200 220 / 220 Weight 204.117 kg 204.117 kg 108.862 kg Constitutional Constitutional: no acute distress, obese, chronically ill appearing and cooperative *Routine HEENT Exam Head: Present normocephalic Eye: Present EOMI and PERRL ENT: Present mucous membranes moist *Routine Neck Exam Neck: Present supple; Absent lymphadenopathy *Routine Respiratory Exam Respiratory: Present CTA bilaterally; Absent rhonchi *Routine Cardiovascular Exam Cardiovascular: Present RRR *Routine Abdominal Exam Abdominal: Present soft, normoactive bowel sounds and obese; Absent tenderness *Routine Rectal Exam Patient deferred: visual exam *Routine Exam Patient deferred: external exam *Routine Extremities Exam Extremities: Absent cyanosis, clubbing or edema *Routine Skin Exam Skin: Present intact and warm; Absent rash *Routine Neurological Exam Neurological: Present alert, oriented X3 and moving all extremities; Absent altered mental status Results Data Completed and Pending Labs on day of discharge: Labs from last 24 hours 03/22/25 03/22/25 03/21/25 10:58 08:53 16:51 POC Glucose 95 103 101 DS: Diagnosis Discharge Diagnosis (1) Fall: Status: Acute Code(s): W19.XXXA - Unspecified fall, initial encounter (2) Adult failure to thrive: Status: Acute Code(s): R62.7 - Adult failure to thrive (3) RANDY (acute kidney injury): Status: Resolved Code(s): N17.9 - Acute kidney failure, unspecified (4) Type 2 diabetes mellitus: Status: Acute Code(s): E11.9 - Type 2 diabetes mellitus without complications (5) Hypertension: Status: Acute Code(s): I10 - Essential (primary) hypertension (6) Debility: Status: Acute Code(s): R53.81 - Other malaise (7) Chronic low back pain: Status: Acute Code(s): M54.50 - Low back pain, unspecified; G89.29 - Other chronic pain (8) Morbid (severe) obesity due to excess calories: Status: Chronic Code(s): E66.01 - Morbid (severe) obesity due to excess calories Meds Home Medications and Allergies Home Medications ?Medication ?Instructions ?Recorded ?Confirmed ?Type acetaminophen 650 mg 650 mg PO Q4HP PRN Mild Pain 11/18/24 03/19/25 History tablet,extended release (Scale Score 1-4) ascorbic acid (vitamin C) 500 mg 500 mg PO BID 11/18/24 03/19/25 History tablet (Vitamin C) cetirizine 10 mg tablet 10 mg PO DAILY 11/18/24 03/19/25 History insulin glargine 100 unit/mL (3 20 unit SQ DAILY 11/18/24 03/19/25 History mL) subcutaneous pen (Lantus Solostar U-100 Insulin) insulin lispro 100 unit/mL 1 sliding scale dose SQ ACHS 11/18/24 03/19/25 History subcutaneous pen multivitamin-ferrous 1 tab PO DAILY 11/18/24 03/19/25 History fumarate-folic acid 18 mg-400 mcg tablet (Certavite-Antioxidant) zinc sulfate 50 mg zinc (220 mg) 50 mg PO DAILY 11/18/24 03/19/25 History 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,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,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 ea 12/07/24 01/27/25 Rx (Dexcom G7 Supply Person) venlafaxine 150 mg 150 mg PO DAILY #30 caps 12/24/24 03/19/25 Rx capsule,extended release 24 hr lancets 28 gauge (FreeStyle #300 ea 03/10/25 Rx Lancets) blood sugar diagnostic (FreeStyle #300 strips 03/15/25 Rx Lite Strips) 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 meter (FreeStyle #1 kit 03/15/25 Rx Lite Meter kit) 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 sensor (Dexcom G7 #9 ea 03/15/25 Rx Sensor device) pen needle, diabetic 31 gauge x #100 ea 03/15/25 Rx 16 (Ultra-Fine Pen Needle) semaglutide 1 mg/dose (4 mg/3 mL) 1 mg SQ WEEKLY 03/19/25 03/19/25 History subcutaneous pen injector (Ozempic) meloxicam 15 mg tablet 7.5 mg (1/2 x 15 mg) PO BIDP PRN 03/20/25 Rx pain #20 tabs furosemide 20 mg tablet (Lasix) 40 mg (2 x 20 mg) PO DAILY 30 days 03/22/25 03/19/25 Rx #0 tabs gabapentin 800 mg tablet 400 mg (1/2 x 800 mg) PO TID 30 03/22/25 03/19/25 Rx days #0 tabs New Prescriptions to Start Prescriptions: Kemar Martin Allergies Allergy/AdvReac Type Severity Reaction Status Date / Time No Known Allergies Allergy Verified 01/27/25 13:22 Discharge Plan Disposition Patient Disposition: Home, Self-Care Condition: Fair Follow up Plan Follow up with: Quentin Calvo MD [Staff Physician, Family Practice] - 03/25/25 11:00 am Referral Note: Will see Kitty Prescriptions/Medication Reconciliation: New meloxicam 15 mg tablet 7.5 mg PO BIDP PRN (Reason: pain) Qty: 20 0RF Continued cetirizine 10 mg tablet 10 mg PO DAILY acetaminophen 650 mg tablet extended release 650 mg PO Q4HP PRN (Reason: Mild Pain (Scale Score 1-4)) zinc sulfate 50 mg zinc (220 mg) tablet 50 mg PO DAILY ascorbic acid (vitamin C) [Vitamin C] 500 mg tablet 500 mg PO BID insulin lispro 100 unit/mL insulin pen 1 sliding scale dose SQ ACHS insulin glargine [Lantus Solostar U-100 Insulin] 100 unit/mL (3 mL) insulin pen 20 unit SQ DAILY Certavite-Antioxidant 18-400 mg-mcg tablet 1 tab PO DAILY venlafaxine 150 mg capsule,extended release 24hr 150 mg PO DAILY Qty: 30 2RF (DME) Dexcom G7 Supply Person Misc See Rx Instructions .Route Qty: 1 0RF Rx Instructions: As directed (DME) lancets [FreeStyle Lancets] 28 gauge misc See Rx Instructions .ROUTE .COMPLEX Qty: 300 11RF Dose Instruction: USE THREE TIMES A DAY *NEW PRESCRIPTION REQUEST* Rx Instructions: USE THREE TIMES A DAY *NEW PRESCRIPTION REQUEST* (DME) Dexcom G7 Sensor Device See Rx Instructions .ROUTE .COMPLEX Qty: 9 10RF Dose Instruction: USE DIRECTED TO TEST BLOOD GLUCOSE LEVEL CHANGE SENSOR EVERY 10 DAYS *NEW PRESCRIPTION REQUEST* Rx Instructions: USE DIRECTED TO TEST BLOOD GLUCOSE LEVEL CHANGE SENSOR EVERY 10 DAYS *NEW PRESCRIPTION REQUEST* (DME) FreeStyle Lite Strips Strip See Rx Instructions .ROUTE .COMPLEX Qty: 300 10RF Dose Instruction: USE DIRECTED TO TEST BLOOD SUGAR THREE TIMES A DAY *NEW PRESCRIPTION REQUEST* Rx Instructions: USE DIRECTED TO TEST BLOOD SUGAR THREE TIMES A DAY *NEW PRESCRIPTION REQUEST* (DME) 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 meter [FreeStyle Lite Meter] Kit See Rx Instructions .ROUTE .COMPLEX Qty: 1 10RF Dose Instruction: USE DIRECTED TO TEST BLOOD SUGAR *NEW PRESCRIPTION REQUEST* Rx Instructions: USE DIRECTED TO TEST BLOOD SUGAR *NEW PRESCRIPTION REQUEST* (DME) pen needle, diabetic [Ultra-Fine Pen Needle] 31 gauge x 5/16 needle See Rx Instructions .ROUTE .COMPLEX Qty: 100 10RF Dose Instruction: USE DIRECTED 3-4 TIMES DAILY *NEW PRESCRIPTION REQUEST* Rx Instructions: USE DIRECTED 3-4 TIMES DAILY *NEW PRESCRIPTION REQUEST* Ozempic 1 mg/dose (4 mg/3 mL) pen injector 1 mg SQ WEEKLY Changed furosemide [Lasix] 20 mg tablet 40 mg PO DAILY 30 Days Qty: 0 0RF gabapentin 800 mg tablet 400 mg PO TID 30 Days Qty: 0 0RF Discontinued alprazolam [Xanax] 1 mg tablet 1 mg PO TIDP PRN (Reason: anxiety) Problem Reconciliation Problems Reviewed?: Yes Patient Discharge Instructions ACTIVITY: Continue current activity DIET: continue same diet Patient Instructions: DI for High Blood Pressure, How to Prevent Falls, DI for Acute Kidney Injury Print Language: [place]an Providers Primary Care Provider: Jacqueline Krueger Admit Provider: Kemar Frederick Attending Provider: Kemar Frederick
--- NOTE | 2025-03-25 11:02 | SW/DCPLANNER ---
Phoned patient x2. Left messages with name and a call back number each time. Kristen BILLY Car Clerk [place]
== END 2025-03-22 14:01 | disposition home or self-care (01) ==
LOC: ER 03-19 02:27 → 2ND 03-19 03:52
PROVIDERS: Internal Medicine; Internal Medicine Adolescent Medicine; Admitting Provider Student in an Organized Health Care Education/Training Program; Emergency Provider Emergency Medicine; Visit Provider Student in an Organized Health Care Education/Training Program
DX: R62.7 Adult failure to thrive (principal); N17.9 Acute kidney failure, unspecified; W19.XXXA Unspecified fall, initial encounter; R53.81 Other malaise; M54.50 Low back pain, unspecified; G89.29 Other chronic pain; F31.9 Bipolar disorder, unspecified; E11.22 Type 2 diabetes mellitus with diabetic chronic kidney disease; N18.2 Chronic kidney disease, stage 2 (mild); I12.9 Hypertensive chronic kidney disease with stage 1 through stage 4 chronic kidney disease, or unspecified chronic kidney disease; K21.9 Gastro-esophageal reflux disease without esophagitis; K76.0 Fatty (change of) liver, not elsewhere classified; Z90.49 Acquired absence of other specified parts of digestive tract; F17.290 Nicotine dependence, other tobacco product, uncomplicated; Z79.4 Long term (current) use of insulin; Z79.85 Long-term (current) use of injectable non-insulin antidiabetic drugs; E66.01 Morbid (severe) obesity due to excess calories; F41.9 Anxiety disorder, unspecified; F43.10 Post-traumatic stress disorder, unspecified; F17.210 Nicotine dependence, cigarettes, uncomplicated; M19.072 Primary osteoarthritis, left ankle and foot; S30.0XXA Contusion of lower back and pelvis, initial encounter; S79.922A Unspecified injury of left thigh, initial encounter
CPT/HCPCS: 36415; 70450; 71045; 72125; 72170; 73552; 73590; 80048; 80053; 82550; 82607; 82746; 82803; 82962; 83036; 83605; 83735; 83880; 84443; 84703; 85025; 96374; 96375; 96376; 97116; 97163; 97165; 97530; 99284; G0378; J1650; J1938; J2270; J2405